=== PATIENT | male | born 1970 | race African-American/Black ===

== ENCOUNTER 2019-08-21 12:53 | Inpatient (IN) | payer MEDICARE ==
[~2019-08-21] VITALS: Ht 165.1 cm; Wt 77.1 kg
[2019-08-21] MEDS: IV NORMAL SALINE 1000ML BAG 1,000 ML IV SCH ×3 (14:10→15:10)
[2019-08-21] MEDS ORDERED: VANCOMYCIN PER PHARMACY MC ONE (14:15)
[2019-08-21] MEDS ORDERED: MORPHINE SULFATE 4 MG/ML VIAL. IV/SQ PRN (14:15)
[2019-08-21] MEDS ORDERED: PIPERACILLIN/TAZOBACTAM 4.5 GM in IV NORMAL SALINE 100ML 100 ML IV ONE (14:30)
[2019-08-21] MEDS ORDERED: VANCOMYCIN 2 GM in IV NORMAL SALINE 500ML BAG 500 ML IV ONE (14:45)
[2019-08-21 15:07] LABS: BASO # 0.1 x10^3/uL (0.0-0.2); BASO % 1 % (0-3); EOS # 0.2 x10^3/uL (0.0-0.7); EOS % 2 % (0-3); HEMATOCRIT 45.5 % (39.0-53.0); HEMOGLOBIN 15.2 g/dL (13.0-17.5); LYMPH % 10 % (24-48); MEAN CORPUSCULAR HEMOGLOBIN 28 pg (25-35); MEAN CORPUSCULAR HGB CONC 34 g/dL (31-37); MEAN CORPUSCULAR VOLUME 85 fL (79-100); MONO # 0.8 x10^3/uL (0.0-1.1); MONO % 8 % (0-9); NEUT # 7.3 x10^3/uL (1.8-7.7); NEUT % 78 % (31-73); PLATELET COUNT 300 x10^3/uL (140-400); RED BLOOD COUNT 5.37 x10^6/uL (4.30-5.70); RED CELL DISTRIBUTION WIDTH 13.8 % (11.5-14.5); WHITE BLOOD COUNT 9.4 x10^3/uL (4.0-11.0)
--- NOTE | 2019-08-21 15:07 | RAD ---
STUDY: Ultrasound testicular/scrotum INDICATION: Scrotal abscess. Rule out orchitis. COMPARISON: None. TECHNIQUE: Real-time grayscale and color Doppler sonographic evaluation of the testicles/scrotum. FINDINGS: Symmetric testicular size and parenchymal echotexture. The right testicle measures 4.3 x 3.0 x 1.9 cm. The left testicle measures 4.7 x 3.1 x 1.8 cm. Doppler flow to both testicles is also symmetric without findings of torsion or orchitis. Vascularity to both epididymides is symmetric as well. On the right aspect of the perineum, heterogeneously hypoechoic collection with predominantly peripheral vascularity measuring 4.9 x 2.3 x 1.4 cm. At the base of the scrotum, additional heterogeneously hypoechoic focus with surrounding vascularity measuring 1.4 x 1.2 x 0.7 cm. Complex collection at the left margin of the gluteal fold with only mild peripheral vascularity as seen on image 47, with the area of involvement measuring 5.6 x 4.2 x 2.8 cm. Impression: 1. Several complex, heterogeneously hypoechoic collections with predominately peripheral vascularity seen at the perineum, base of the scrotum, as well as along the left aspect of the gluteal fold most compatible with phlegmonous change/early abscess formation. The degree of internal complexity of these collections may render them difficult to drainage. 2. No findings to suggest epididymoorchitis. Electronically signed by: BRAD WHEAT MD (08/21/2019 3:05 PM) [facility]
[2019-08-21 15:17] LABS: CALCIUM 9.4 mg/dL (8.5-10.1); GFR 95.7; POTASSIUM 4.1 mmol/L (3.5-5.1)
[2019-08-21 15:23] LABS: ALBUMIN 3.3 g/dL (3.4-5.0); ALBUMIN/GLOBULIN RATIO 0.7 (1.0-1.7); TOTAL BILIRUBIN 0.4 mg/dL (0.2-1.0); TOTAL PROTEIN 8.1 g/dL (6.4-8.2)
[2019-08-21] MEDS ORDERED: CONTRAST GIVEN. MC PRN (15:30)
[2019-08-21] MEDS ORDERED: IOHEXOL 300 MG/ML 100ML VIAL. IV ONE (15:30)
[2019-08-21] MEDS ORDERED: ONDANSETRON PF 4 MG/2 ML VIAL. IV PRN (16:15)
[2019-08-21] MEDS ORDERED: ACETAMINOPHEN 325 MG TABLET. PO PRN (16:15)
[2019-08-21] MEDS ORDERED: IV DEXTROSE 5% 250 ML BAG. IV PRN (16:30)
[2019-08-21] MEDS ORDERED: DEXTROSE 50% 25 GM / 50ML DISP.SYRIN. IV PRN (16:30)
[2019-08-21 16:32] VITALS: BP 151/109
--- NOTE | 2019-08-21 16:37 | RAD ---
STUDY: CT pelvis with contrast INDICATION: Buttocks abscess. Right groin abscess. Right scrotal abscess. COMPARISON: Same day testicular/scrotal sonogram. TECHNIQUE: Helical CT imaging of the pelvis performed after the intravenous administration of 75 cc Omnipaque 300. Sagittal and coronal reformats were obtained. FINDINGS: Multifocal skin thickening along the inner thighs, along the perineum as well as along the gluteal cleft. Surrounding subcutaneous fat stranding in these regions. Fluid collection with intermediate central density and peripheral enhancement along the left aspect of the gluteal fold, image 64 series 2, measures approximately 4.4 cm AP by 2.8 cm transverse by 5.0 cm craniocaudal. This structure extends towards the anorectal region without a well defined sinus tract connecting the two structures seen on this exam. Poorly defined heterogeneous area of low attenuation at the right groin region, image 85 series 2, which likely corresponds to the ultrasound findings in this region though is difficult to measure on this exam. The heterogeneous fluid collection at the base of the scrotum seen by ultrasound is not well delineated on this study. Some fluid with intermixed air seen interposed between the scrotum and inner thigh on the left more so than right such as on images 83 and 88, series 2. No subcutaneous gas or intramuscular fluid collection. Scattered reactive inguinal lymph nodes. No intrapelvic fluid collection. The urinary bladder and prostate are within normal limits. Aortobiiliac atherosclerotic calcifications. Small fat-containing right paramidline hernia, image 7 series 2. Reticulation of the subcutaneous fat essentially involving the entirety of the imaged body. IMPRESSION: 1. Prominent heterogeneous collection with intermediate density internal contents and peripheral enhancement along the left aspect of the gluteal cleft measuring approximately 4.4 x 2.8 x 5.0 cm. This collection and surrounding soft tissue inflammatory changes extend to the posterior wall of the anorectal region without clear communication on this study. The appearance is compatible with a developing abscess though its drainability at this time is uncertain when correlating the internal density on this study with the internal complexity on the same day ultrasound. 2. At the right aspect of the groin, heterogeneous low-attenuation subjacent to the skin surface suggestive of phlegmonous change (image 85 series 2). No discrete drainable fluid collection along the perineum is present at this time. 3. The suspected scrotal abscess seen by ultrasound is not well characterized on this exam. 4. Background multifocal skin thickening with surrounding inflammatory fat stranding along the perineum, groin and gluteal cleft. Electronically signed by: BRAD WHEAT MD (08/21/2019 4:34 PM) [place] [id number]
[2019-08-21] MEDS: MORPHINE SULFATE 4 MG/ML VIAL. IV PRN (17:34)
[2019-08-21] MEDS: INSULIN LISPRO 300 UNITS/3 ML VIAL. SQ SCH (17:35)
[2019-08-21] MEDS ORDERED: amLODIPine BESYLATE 5 MG TABLET PO SCH (17:45)
--- NOTE | 2019-08-21 17:56 | PHYS DOC ---
Past Medical History Past Medical History: No Pertinent History Past Surgical History: Tonsillectomy Alcohol Use: None Drug Use: None Adult General Chief Complaint Chief Complaint: ABSCESS HPI HPI Patient is a 49 year old male with no significant medical history who presents to the ED today complaining of multiple abscesses around his groin and scrotum region that began one and a half weeks ago. Review of Systems Review of Systems Constitutional: Denies fever or chills [] Eyes: Denies change in visual acuity, redness, or eye pain [] HENT: Denies nasal congestion or sore throat [] Respiratory: Denies cough or shortness of breath [] Cardiovascular: No additional information not addressed in HPI [] GI: Denies abdominal pain, nausea, vomiting, bloody stools or diarrhea [] : Denies dysuria or hematuria [] Musculoskeletal: Denies back pain or joint pain [] Integument: Reports abscesses in the groin and scrotum region Neurologic: Denies headache, focal weakness or sensory changes [] All other systems were reviewed and found to be within normal limits, except as documented in this note. Current Medications Current Medications Current Medications Medications (Trade) Dose Ordered Sig/Mariola Start Time Stop Time Status Last Admin Dose Admin Morphine Sulfate (Morphine Sulfate) 4 mg PRN Q15MIN PRN 08/21/19 14:15 08/22/19 14:14 Piperacillin Sod/ Tazobactam Sod 4.5 gm/Sodium Chloride 100 ml @ 200 mls/hr 1X ONCE 08/21/19 14:30 08/21/19 14:59 DC 08/21/19 14:50 200 MLS/HR Sodium Chloride 1,000 ml @ 2,000 mls/hr Q30M 08/21/19 14:10 08/21/19 15:18 DC Vancomycin HCl (Vanco Per Pharmacy) 1 each 1X ONCE 08/21/19 14:15 08/21/19 15:30 DC 08/21/19 16:19 1 EACH Vancomycin HCl 2 gm/Sodium Chloride 500 ml @ 250 mls/hr 1X ONCE 08/21/19 14:45 08/21/19 16:44 DC 08/21/19 15:29 250 MLS/HR Allergies Allergies Allergies Coded Allergies Type Severity Reaction Last Updated Verified No Known Drug Allergies 08/21/19 No Physical Exam Physical Exam Constitutional: Well developed, well nourished, no acute distress, non-toxic appearance. [] HENT: Normocephalic, atraumatic, bilateral external ears normal, oropharynx mois t, no oral exudates, nose normal. [] Eyes: PERRLA, EOMI, conjunctiva normal, no discharge. [] Neck: Normal range of motion, no tenderness, supple, no stridor. [] Cardiovascular:Heart rate regular rhythm, no murmur [] Lungs & Thorax: Bilateral breath sounds clear to auscultation [] Abdomen: Bowel sounds normal, soft, no tenderness, no masses, no pulsatile masses. [] Skin: Groin and scrotal exam done with RN notes a last inserter. There is a mildly indurated area noted on the left inner buttock, the area is firm tender to touch, fluctuance noted, there is also another indurated area on the right inner groin/thigh region, the area appears to be draining, left scrotal region also has an open tiny wound. Extremities: No tenderness, no cyanosis, no clubbing, ROM intact, no edema. [] Neurologic: Alert and oriented X 3, normal motor function, normal sensory function, no focal deficits noted. [] Psychologic: Affect normal, judgement normal, mood normal. [] Current Patient Data Vital Signs Vital Signs Date Time Temp Pulse Resp B/P (MAP) Pulse Ox O2 Delivery O2 Flow Rate FiO2 08/21/19 14:38 96 16 141/92 (108) 97 Room Air 08/21/19 13:39 98.7 98.7 Lab Values Laboratory Tests Test 08/21/19 14:45 White Blood Count 9.4 x10^3/uL (4.0-11.0) Red Blood Count 5.37 x10^6/uL (4.30-5.70) Hemoglobin 15.2 g/dL (13.0-17.5) Hematocrit 45.5 % (39.0-53.0) Mean Corpuscular Volume 85 fL (79-100) Mean Corpuscular Hemoglobin 28 pg (25-35) Mean Corpuscular Hemoglobin Concent 34 g/dL (31-37) Red Cell Distribution Width 13.8 % (11.5-14.5) Platelet Count 300 x10^3/uL (140-400) Neutrophils (%) (Auto) 78 % (31-73) H Lymphocytes (%) (Auto) 10 % (24-48) L Monocytes (%) (Auto) 8 % (0-9) Eosinophils (%) (Auto) 2 % (0-3) Basophils (%) (Auto) 1 % (0-3) Neutrophils # (Auto) 7.3 x10^3/uL (1.8-7.7) Lymphocytes # (Auto) 1.0 x10^3/uL (1.0-4.8) Monocytes # (Auto) 0.8 x10^3/uL (0.0-1.1) Eosinophils # (Auto) 0.2 x10^3/uL (0.0-0.7) Basophils # (Auto) 0.1 x10^3/uL (0.0-0.2) Erythrocyte Sedimentation Rate 30 (0-15) H Sodium Level 134 mmol/L (136-145) L Potassium Level 4.1 mmol/L (3.5-5.1) Chloride Level 99 mmol/L (98-107) Carbon Dioxide Level 24 mmol/L (21-32) Anion Gap 11 (6-14) Blood Urea Nitrogen 14 mg/dL (8-26) Creatinine 1.0 mg/dL (0.7-1.3) Estimated GFR (Cockcroft-Gault) 95.7 BUN/Creatinine Ratio 14 (6-20) Glucose Level 339 mg/dL (70-99) H Lactic Acid Level 1.5 mmol/L (0.4-2.0) Calcium Level 9.4 mg/dL (8.5-10.1) Total Bilirubin 0.4 mg/dL (0.2-1.0) Aspartate Amino Transferase (AST) 11 U/L (15-37) L Alanine Aminotransferase (ALT) 12 U/L (16-63) L Alkaline Phosphatase 128 U/L (46-116) H C-Reactive Protein, Quantitative 69.0 mg/L (0-3.3) H Total Protein 8.1 g/dL (6.4-8.2) Albumin 3.3 g/dL (3.4-5.0) L Albumin/Globulin Ratio 0.7 (1.0-1.7) L Procalcitonin 0.10 ng/mL (0.00-0.10) Laboratory Tests 08/21/19 14:45 Laboratory Tests 08/21/19 14:45 EKG EKG [] Radiology/Procedures Radiology/Procedures [] Course & Med Decision Making Course & Med Decision Making Pertinent Labs and Imaging studies reviewed. (See chart for details) This is a 49-year-old male patient who presents to the ED today with multiple abscesses noted on the left buttock, right inner thigh/groin region, left scrotal region. Patient will be admitted for I&D by general surgery and IV antibiotics. Spoke with Dr. Staples who accepted patient for admission. Labs are pending. Dragon Disclaimer Dragon Disclaimer This electronic medical record was generated, in whole or in part, using a voice recognition dictation system. Departure Departure Impression: Primary Impression: Abscess of groin, right Additional Impression: Abscess of groin, left Disposition: ADMITTED INPATIENT Condition: STABLE Referrals: NO PCP (PCP) Problem Qualifiers MAKENZIE BAIRD APRN Aug 21, 2019 17:56
--- NOTE | 2019-08-21 18:12 | PDOC1 ---
History and Physical Date of Admission Date of Admission DATE: 08/21/19 TIME: 18:08 History of Present Illness History of Present Illness Mr. Ashraf is a 49 year old male, has not seen a doctor in 20 + years has pain to his buttock and groin for days, had a boil, and applied an onion, and that lesion is now drainging. no PMH that he is aware of. 9 days of worsenign pain, with multiple abscesses around his groin and scrotum region that began one and a half weeks ago. pain 07/11- Family History Family History: No Significant Social History Smoke: No ALCOHOL: rare Drugs: None Current Problem List Problem List Problems Medical Problems: (1) Abscess of groin, left Status: Acute (2) Abscess of groin, right Status: Acute Current Medications Current Medications Current Medications Piperacillin Sod/ Tazobactam Sod 4.5 gm/Sodium Chloride 100 ml @ 200 mls/hr 1X ONCE IV Last administered on 08/21/19at 14:50; Start 08/21/19 at 14:30; Stop 08/21/19 at 14:59; Status DC Vancomycin HCl (Vanco Per Pharmacy) 1 each 1X ONCE MC Last administered on 08/21/19at 16:19; Start 08/21/19 at 14:15; Stop 08/21/19 at 15:30; Status DC Sodium Chloride 1,000 ml @ 2,000 mls/hr Q30M IV ; Start 08/21/19 at 14:10; Stop 08/21/19 at 15:18; Status DC Morphine Sulfate (Morphine Sulfate) 4 mg PRN Q15MIN PRN IV/SQ PAIN GREATER THAN 3/10; Start 08/21/19 at 14:15; Stop 08/22/19 at 14:14 Vancomycin HCl 2 gm/Sodium Chloride 500 ml @ 250 mls/hr 1X ONCE IV Last administered on 08/21/19at 15:29; Start 08/21/19 at 14:45; Stop 08/21/19 at 16: 44; Status DC Iohexol (Omnipaque 300 Mg/ml) 75 ml 1X ONCE IV Last administered on 08/21/19at 15:52; Start 08/21/19 at 15:30; Stop 08/21/19 at 15:31; Status DC Info (CONTRAST GIVEN -- Rx MONITORING) 1 each PRN DAILY PRN MC SEE COMMENTS; Start 08/21/19 at 15:30; Stop 08/23/19 at 15:29 Vancomycin HCl 1.25 gm/Sodium Chloride 250 ml @ 167 mls/hr Q12H IV ; Start 08/22/19 at 03:30 Vancomycin HCl (Vancomycin Trough Level) 1 each 1X ONCE MC ; Start 08/23/19 at 03:00; Stop 08/23/19 at 03:01 Ondansetron HCl (Zofran) 4 mg PRN Q8HRS PRN IV NAUSEA/VOMITING; Start 08/21/19 at 16:15; Stop 08/22/19 at 16:14 Morphine Sulfate (Morphine Sulfate) 4 mg PRN Q2HR PRN IV PAIN Last administered on 08/21/19at 17:35; Start 08/21/19 at 16:15; Stop 08/22/19 at 16:14 Acetaminophen (Tylenol) 650 mg PRN Q4HRS PRN PO FEVER; Start 08/21/19 at 16:15; Stop 08/22/19 at 16:14 Insulin Human Lispro (HumaLOG) 0-9 UNITS TIDWMEALS SQ Last administered on 08/21/19at 17:35; Start 08/21/19 at 17:00 Dextrose (Dextrose 50%-Water Syringe) 12.5 gm PRN Q15MIN PRN IV SEE COMMENTS; Start 08/21/19 at 16:30 Dextrose 250 ml PRN Q15MIN PRN IV SEE COMMENTS; Start 08/21/19 at 16:30 Oxycodone/ Acetaminophen (Percocet 5/325) 1 tab PRN Q4HRS PRN PO PAIN; Start 08/21/19 at 17:45 Amlodipine Besylate (Norvasc) 2.5 mg DAILY PO Last administered on 08/21/19at 17:43; Start 08/21/19 at 17:45 Active Scripts Active Reported No Known Medications Prior To Admisstion (Info) Each 1 Each MC 1X Allergies Allergies: Coded Allergies: No Known Drug Allergies (Unverified , 08/21/19) ROS General: YES: Chills, Fatigue, Malaise PSYCHOLOGICAL ROS: YES: Sleep disturbances; No: Anxiety, Behavioral Disorder, Concentration difficultie, Decreased libido, Depression, Disorientation, Hallucinations, Hostility, Irritablity, Memory difficulties, Mood Swings, Obsessive thoughts, Other Eyes: No Blurry vision, No Decreased vision, No Double vision, No Dry eyes, No Excessive tearing, No Eye Pain, No Itchy Eyes, No Loss of vision, No Photophobia, No Scotomata, No Uses contacts, No Uses glasses, No Other HEENT: No: Heacaches, Visual Changes, Hearing change, Nasal congestion, Nasal discharge, Oral lesions, Sinus pain, Sore Throat, Epistaxis, Sneezing, Snoring, Tinnitus, Vertigo, Vocal changes, Other Respiratory: No: Cough, Hemoptysis, Orthopnea, Pleuritic Pain, Shortness of breath, SOB with excertion, Sputum Changes, Stridor, Tachypnea, Wheezing, Other Cardiovascular: No Chest Pain, No Palpitations, No Orthopnea, No Paroxysmal Noc. Dyspnea, No Edema, No Lt Headedness, No Other Gastrointestinal: Yes Nausea; No Vomiting, No Abdominal Pain, No Diarrhea, No Constipation, No Melena, No Hematochezia, No Other Genitourinary: No Dysuria, No Frequency, No Incontinence, No Hematuria, No Retention, No Discharge, No Urgency, No Pain, No Flank Pain, No Other, No , No , No , No , No , No , No Musculoskeletal: No Gait Disturbance, No Joint Pain, No Joint Stiffness, No Joint Swelling, No Muscle Pain, No Muscular Weakness, No Pain In:, No Swelling In:, No Other Neurological: No Behavorial Changes, No Bowel/Bladder ControlChng, No Confusion, No Dizziness, No Gait Disturbance, No Headaches, No Impaired Coord/balance, No Memory Loss, No Numbness/Tingling, No Seizures, No Speech Problems, No Tremors, No Visual Changes, No Weakness, No Other Skin: Yes Rash, Yes Skin Lesion Changes, Yes Other Physical Exam General: Oriented X3, Cooperative, mild distress, moderate distress HEENT: Atraumatic, PERRLA, Mucous membr. moist/pink Lungs: Clear to auscultation, Normal air movement Heart: S1S2 Extremities: No clubbing Skin: Other (groin wet from draining abcess, right large grion swelling and on left buttock) Neuro: Normal gait, Normal speech, Sensation intact Psych/Mental Status: Mood NL Vitals Vitals Vital Signs Date Time Temp Pulse Resp B/P (MAP) Pulse Ox O2 Delivery O2 Flow Rate FiO2 9/20/19 17:43 90 151/109 08/21/19 17:35 Room Air 08/21/19 16:32 98.5 16 97 98.5 Labs Labs Laboratory Tests Test 08/21/19 14:45 08/21/19 16:49 White Blood Count 9.4 x10^3/uL (4.0-11.0) Red Blood Count 5.37 x10^6/uL (4.30-5.70) Hemoglobin 15.2 g/dL (13.0-17.5) Hematocrit 45.5 % (39.0-53.0) Mean Corpuscular Volume 85 fL (79-100) Mean Corpuscular Hemoglobin 28 pg (25-35) Mean Corpuscular Hemoglobin Concent 34 g/dL (31-37) Red Cell Distribution Width 13.8 % (11.5-14.5) Platelet Count 300 x10^3/uL (140-400) Neutrophils (%) (Auto) 78 % (31-73) Lymphocytes (%) (Auto) 10 % (24-48) Monocytes (%) (Auto) 8 % (0-9) Eosinophils (%) (Auto) 2 % (0-3) Basophils (%) (Auto) 1 % (0-3) Neutrophils # (Auto) 7.3 x10^3/uL (1.8-7.7) Lymphocytes # (Auto) 1.0 x10^3/uL (1.0-4.8) Monocytes # (Auto) 0.8 x10^3/uL (0.0-1.1) Eosinophils # (Auto) 0.2 x10^3/uL (0.0-0.7) Basophils # (Auto) 0.1 x10^3/uL (0.0-0.2) Erythrocyte Sedimentation Rate 30 (0-15) Sodium Level 134 mmol/L (136-145) Potassium Level 4.1 mmol/L (3.5-5.1) Chloride Level 99 mmol/L (98-107) Carbon Dioxide Level 24 mmol/L (21-32) Anion Gap 11 (6-14) Blood Urea Nitrogen 14 mg/dL (8-26) Creatinine 1.0 mg/dL (0.7-1.3) Estimated GFR (Cockcroft-Gault) 95.7 BUN/Creatinine Ratio 14 (6-20) Glucose Level 339 mg/dL (70-99) Lactic Acid Level 1.5 mmol/L (0.4-2.0) Calcium Level 9.4 mg/dL (8.5-10.1) Total Bilirubin 0.4 mg/dL (0.2-1.0) Aspartate Amino Transf (AST/SGOT) 11 U/L (15-37) Alanine Aminotransferase (ALT/SGPT) 12 U/L (16-63) Alkaline Phosphatase 128 U/L (46-116) C-Reactive Protein, Quantitative 69.0 mg/L (0-3.3) Total Protein 8.1 g/dL (6.4-8.2) Albumin 3.3 g/dL (3.4-5.0) Albumin/Globulin Ratio 0.7 (1.0-1.7) Procalcitonin 0.10 ng/mL (0.00-0.10) Glucose (Fingerstick) 254 mg/dL (70-99) Laboratory Tests Test 08/21/19 14:45 08/21/19 16:49 White Blood Count 9.4 x10^3/uL (4.0-11.0) Red Blood Count 5.37 x10^6/uL (4.30-5.70) Hemoglobin 15.2 g/dL (13.0-17.5) Hematocrit 45.5 % (39.0-53.0) Mean Corpuscular Volume 85 fL (79-100) Mean Corpuscular Hemoglobin 28 pg (25-35) Mean Corpuscular Hemoglobin Concent 34 g/dL (31-37) Red Cell Distribution Width 13.8 % (11.5-14.5) Platelet Count 300 x10^3/uL (140-400) Neutrophils (%) (Auto) 78 % (31-73) Lymphocytes (%) (Auto) 10 % (24-48) Monocytes (%) (Auto) 8 % (0-9) Eosinophils (%) (Auto) 2 % (0-3) Basophils (%) (Auto) 1 % (0-3) Neutrophils # (Auto) 7.3 x10^3/uL (1.8-7.7) Lymphocytes # (Auto) 1.0 x10^3/uL (1.0-4.8) Monocytes # (Auto) 0.8 x10^3/uL (0.0-1.1) Eosinophils # (Auto) 0.2 x10^3/uL (0.0-0.7) Basophils # (Auto) 0.1 x10^3/uL (0.0-0.2) Erythrocyte Sedimentation Rate 30 (0-15) Sodium Level 134 mmol/L (136-145) Potassium Level 4.1 mmol/L (3.5-5.1) Chloride Level 99 mmol/L (98-107) Carbon Dioxide Level 24 mmol/L (21-32) Anion Gap 11 (6-14) Blood Urea Nitrogen 14 mg/dL (8-26) Creatinine 1.0 mg/dL (0.7-1.3) Estimated GFR (Cockcroft-Gault) 95.7 BUN/Creatinine Ratio 14 (6-20) Glucose Level 339 mg/dL (70-99) Lactic Acid Level 1.5 mmol/L (0.4-2.0) Calcium Level 9.4 mg/dL (8.5-10.1) Total Bilirubin 0.4 mg/dL (0.2-1.0) Aspartate Amino Transf (AST/SGOT) 11 U/L (15-37) Alanine Aminotransferase (ALT/SGPT) 12 U/L (16-63) Alkaline Phosphatase 128 U/L (46-116) C-Reactive Protein, Quantitative 69.0 mg/L (0-3.3) Total Protein 8.1 g/dL (6.4-8.2) Albumin 3.3 g/dL (3.4-5.0) Albumin/Globulin Ratio 0.7 (1.0-1.7) Procalcitonin 0.10 ng/mL (0.00-0.10) Glucose (Fingerstick) 254 mg/dL (70-99) VTE Prophylaxis Ordered VTE Prophylaxis Devices: No VTE Pharmacological Prophylaxi: No Assessment/Plan Assessment/Plan cellulits sepsis groin abcess, consult gen surg. imaging showed 3 abcesses, buttock, groin htn, reactive dm2 BRISA WELCH MD Aug 21, 2019 18:12
[2019-08-21 19:00] VITALS: BP 121/109
[2019-08-21] MEDS: oxyCODONE/APAP 5/325 1 TAB TABLET PO PRN (20:58)
[2019-08-21] MEDS ORDERED: INSULIN LISPRO 300 UNITS/3 ML VIAL. SQ ONE (21:00)
[2019-08-21] MEDS ORDERED: INSULIN GLARGINE SYRINGE. SQ ONE (21:00)
[2019-08-21 23:00] VITALS: BP 128/83
[2019-08-22] VITALS (8 sets, daily range): BP systolic 112–132; BP diastolic 72–99
[2019-08-22] MEDS: MORPHINE SULFATE 4 MG/ML VIAL. IV PRN ×3 (00:57→11:39)
[2019-08-22] MEDS: VANCOMYCIN 1.25 GM in IV NORMAL SALINE 250ML 250 ML IV SCH ×2 (03:57→17:42)
[2019-08-22 07:48] LABS: BASO # 0.1 x10^3/uL (0.0-0.2); BASO % 1 % (0-3); EOS # 0.3 x10^3/uL (0.0-0.7); EOS % 3 % (0-3); HEMATOCRIT 43.9 % (39.0-53.0); HEMOGLOBIN 14.3 g/dL (13.0-17.5); LYMPH # 1.3 x10^3/uL (1.0-4.8); LYMPH % 12 % (24-48); MEAN CORPUSCULAR HEMOGLOBIN 28 pg (25-35); MEAN CORPUSCULAR HGB CONC 33 g/dL (31-37); MEAN CORPUSCULAR VOLUME 86 fL (79-100); MONO # 1.1 x10^3/uL (0.0-1.1); MONO % 10 % (0-9); NEUT # 8.2 x10^3/uL (1.8-7.7); NEUT % 75 % (31-73); PLATELET COUNT 278 x10^3/uL (140-400); RED BLOOD COUNT 5.11 x10^6/uL (4.30-5.70); RED CELL DISTRIBUTION WIDTH 13.5 % (11.5-14.5)
[2019-08-22 08:09] LABS: ALBUMIN 2.7 g/dL (3.4-5.0); ALBUMIN/GLOBULIN RATIO 0.6 (1.0-1.7); CALCIUM 9.2 mg/dL (8.5-10.1); CREATININE 0.8 mg/dL (0.7-1.3); GFR 123.8; TOTAL BILIRUBIN 0.3 mg/dL (0.2-1.0); TOTAL PROTEIN 7.3 g/dL (6.4-8.2)
[2019-08-22] MEDS: oxyCODONE/APAP 5/325 1 TAB TABLET PO PRN ×2 (08:20→21:37)
[2019-08-22] MEDS: INSULIN LISPRO 300 UNITS/3 ML VIAL. SQ SCH ×3 (08:23→18:51)
[2019-08-22] MEDS ORDERED: PROCHLORPERAZINE 10 MG/2 ML VIAL. IV PRN (10:00)
[2019-08-22] MEDS ORDERED: MORPHINE SULFATE 2 MG/ML VIAL. IV PRN (10:00)
[2019-08-22] MEDS ORDERED: IV RINGERS,LACTATED 1000ML 1,000 ML IV SCH (10:00)
[2019-08-22] MEDS ORDERED: fentaNYL PF VIAL 100 MCG/2 ML VIAL IV PRN (10:00)
[2019-08-22] MEDS ORDERED: ONDANSETRON PF 4 MG/2 ML VIAL. IV PRN (10:00)
--- NOTE | 2019-08-22 10:30 | PDOC ---
PROGRESS NOTES History of Present Illness History of Present Illness VTE Prophylaxis Ordered VTE Prophylaxis Devices: No VTE Pharmacological Prophylaxi: No Assessment/Plan Assessment/Plan cellulits sepsis groin abcess, Several complex, heterogeneously hypoechoic collections with predominately peripheral vascularity seen at the perineum, base of the scrotum, as well as along the left aspect of the gluteal fold most compatible with phlegmonous change/early abscess formation. The degree of internal complexity of these collections may render them difficult to drainage. Prominent heterogeneous collection with intermediate density internal contents and peripheral enhancement along the left aspect of the gluteal cleft measuring approximately 4.4 x 2.8 x 5.0 cm. This collection and surrounding soft tissue inflammatory changes extend to the posterior wall of the anorectal region without clear communication on this study ON CT 08/21 No findings to suggest epididymoorchitis. SEVERE PROTEIN-CALORIC MALNUTRITION consult gen surg. imaging showed 3 abcesses, buttock, groin htn, reactive dm2 BLOOD CULT ID CONSULT IV VANC, ZOSYN DVT PROPHYLAXIS A1C 37 MIN PT EXAM, CHART REVIEW, > 50% OF TIME SPENT WITH EXAM, CHART REVIEW, PT CARE COORDINATION Vitals Vitals Vital Signs Date Time Temp Pulse Resp B/P (MAP) Pulse Ox O2 Delivery O2 Flow Rate FiO2 08/22/19 08:23 16 Room Air 08/22/19 07:00 97.9 83 117/73 (88) 94 97.9 Physical Exam General: Alert, Oriented X3, Cooperative, mild distress Heart: Regular rate Lungs: Clear Abdomen: Soft Extremities: No clubbing, No cyanosis Skin: Other (groin wet from draining abcess, right large grion swelling and on left buttock) Labs LABS STUDY: CT pelvis with contrast INDICATION: Buttocks abscess. Right groin abscess. Right scrotal abscess. COMPARISON: Same day testicular/scrotal sonogram. TECHNIQUE: Helical CT imaging of the pelvis performed after the intravenous administration of 75 cc Omnipaque 300. Sagittal and coronal reformats were obtained. FINDINGS: Multifocal skin thickening along the inner thighs, along the perineum as well as along the gluteal cleft. Surrounding subcutaneous fat stranding in these regions. Fluid collection with intermediate central density and peripheral enhancement along the left aspect of the gluteal fold, image 64 series 2, measures approximately 4.4 cm AP by 2.8 cm transverse by 5.0 cm craniocaudal. This structure extends towards the anorectal region without a well defined sinus tract connecting the two structures seen on this exam. Poorly defined heterogeneous area of low attenuation at the right groin region, image 85 series 2, which likely corresponds to the ultrasound findings in this region though is difficult to measure on this exam. The heterogeneous fluid collection at the base of the scrotum seen by ultrasound is not well delineated on this study. Some fluid with intermixed air seen interposed between the scrotum and inner thigh on the left more so than right such as on images 83 and 88, series 2. No subcutaneous gas or intramuscular fluid collection. Scattered reactive inguinal lymph nodes. No intrapelvic fluid collection. The urinary bladder and prostate are within normal limits. Aortobiiliac atherosclerotic calcifications. Small fat-containing right paramidline hernia, image 7 series 2. Reticulation of the subcutaneous fat essentially involving the entirety of the imaged body. IMPRESSION: 1. Prominent heterogeneous collection with intermediate density internal contents and peripheral enhancement along the left aspect of the gluteal cleft measuring approximately 4.4 x 2.8 x 5.0 cm. This collection and surrounding soft tissue inflammatory changes extend to the posterior wall of the anorectal region without clear communication on this study. The appearance is compatible with a developing abscess though its drainability at this time is uncertain when correlating the internal density on this study with the internal complexity on the same day ultrasound. 2. At the right aspect of the groin, heterogeneous low-attenuation subjacent to the skin surface suggestive of phlegmonous change (image 85 series 2). No discrete drainable fluid collection along the perineum is present at this time. 3. The suspected scrotal abscess seen by ultrasound is not well characterized on this exam. 4. Background multifocal skin thickening with surrounding inflammatory fat stranding along the perineum, groin and gluteal cleft. Electronically signed by: BRAD WHEAT MD (08/21/2019 4:34 PM) [facility] DICTATED and SIGNED BY: BRAD WHEAT MD DATE: 08/21/19 1634 STUDY: Ultrasound testicular/scrotum INDICATION: Scrotal abscess. Rule out orchitis. COMPARISON: None. TECHNIQUE: Real-time grayscale and color Doppler sonographic evaluation of the testicles/scrotum. FINDINGS: Symmetric testicular size and parenchymal echotexture. The right testicle measures 4.3 x 3.0 x 1.9 cm. The left testicle measures 4.7 x 3.1 x 1.8 cm. Doppler flow to both testicles is also symmetric without findings of torsion or orchitis. Vascularity to both epididymides is symmetric as well. On the right aspect of the perineum, heterogeneously hypoechoic collection with predominantly peripheral vascularity measuring 4.9 x 2.3 x 1.4 cm. At the base of the scrotum, additional heterogeneously hypoechoic focus with surrounding vascularity measuring 1.4 x 1.2 x 0.7 cm. Complex collection at the left margin of the gluteal fold with only mild peripheral vascularity as seen on image 47, with the area of involvement measuring 5.6 x 4.2 x 2.8 cm. Impression: 1. Several complex, heterogeneously hypoechoic collections with predominately peripheral vascularity seen at the perineum, base of the scrotum, as well as along the left aspect of the gluteal fold most compatible with phlegmonous change/early abscess formation. The degree of internal complexity of these collections may render them difficult to drainage. 2. No findings to suggest epididymoorchitis. Electronically signed by: BRAD WHEAT MD (08/21/2019 3:05 PM) [facility] Laboratory Tests Test 08/21/19 14:45 08/21/19 16:49 08/21/19 18:15 08/21/19 20:14 White Blood Count 9.4 x10^3/uL (4.0-11.0) Red Blood Count 5.37 x10^6/uL (4.30-5.70) Hemoglobin 15.2 g/dL (13.0-17.5) Hematocrit 45.5 % (39.0-53.0) Mean Corpuscular Volume 85 fL (79-100) Mean Corpuscular Hemoglobin 28 pg (25-35) Mean Corpuscular Hemoglobin Concent 34 g/dL (31-37) Red Cell Distribution Width 13.8 % (11.5-14.5) Platelet Count 300 x10^3/uL (140-400) Neutrophils (%) (Auto) 78 % (31-73) Lymphocytes (%) (Auto) 10 % (24-48) Monocytes (%) (Auto) 8 % (0-9) Eosinophils (%) (Auto) 2 % (0-3) Basophils (%) (Auto) 1 % (0-3) Neutrophils # (Auto) 7.3 x10^3/uL (1.8-7.7) Lymphocytes # (Auto) 1.0 x10^3/uL (1.0-4.8) Monocytes # (Auto) 0.8 x10^3/uL (0.0-1.1) Eosinophils # (Auto) 0.2 x10^3/uL (0.0-0.7) Basophils # (Auto) 0.1 x10^3/uL (0.0-0.2) Erythrocyte Sedimentation Rate 30 (0-15) Sodium Level 134 mmol/L (136-145) Potassium Level 4.1 mmol/L (3.5-5.1) Chloride Level 99 mmol/L (98-107) Carbon Dioxide Level 24 mmol/L (21-32) Anion Gap 11 (6-14) Blood Urea Nitrogen 14 mg/dL (8-26) Creatinine 1.0 mg/dL (0.7-1.3) Estimated GFR (Cockcroft-Gault) 95.7 BUN/Creatinine Ratio 14 (6-20) Glucose Level 339 mg/dL (70-99) Lactic Acid Level 1.5 mmol/L (0.4-2.0) 1.0 mmol/L (0.4-2.0) Calcium Level 9.4 mg/dL (8.5-10.1) Total Bilirubin 0.4 mg/dL (0.2-1.0) Aspartate Amino Transf (AST/SGOT) 11 U/L (15-37) Alanine Aminotransferase (ALT/SGPT) 12 U/L (16-63) Alkaline Phosphatase 128 U/L (46-116) C-Reactive Protein, Quantitative 69.0 mg/L (0-3.3) Total Protein 8.1 g/dL (6.4-8.2) Albumin 3.3 g/dL (3.4-5.0) Albumin/Globulin Ratio 0.7 (1.0-1.7) Procalcitonin 0.10 ng/mL (0.00-0.10) Glucose (Fingerstick) 254 mg/dL (70-99) 407 mg/dL (70-99) Test 08/22/19 07:05 White Blood Count 11.0 x10^3/uL (4.0-11.0) Red Blood Count 5.11 x10^6/uL (4.30-5.70) Hemoglobin 14.3 g/dL (13.0-17.5) Hematocrit 43.9 % (39.0-53.0) Mean Corpuscular Volume 86 fL (79-100) Mean Corpuscular Hemoglobin 28 pg (25-35) Mean Corpuscular Hemoglobin Concent 33 g/dL (31-37) Red Cell Distribution Width 13.5 % (11.5-14.5) Platelet Count 278 x10^3/uL (140-400) Neutrophils (%) (Auto) 75 % (31-73) Lymphocytes (%) (Auto) 12 % (24-48) Monocytes (%) (Auto) 10 % (0-9) Eosinophils (%) (Auto) 3 % (0-3) Basophils (%) (Auto) 1 % (0-3) Neutrophils # (Auto) 8.2 x10^3/uL (1.8-7.7) Lymphocytes # (Auto) 1.3 x10^3/uL (1.0-4.8) Monocytes # (Auto) 1.1 x10^3/uL (0.0-1.1) Eosinophils # (Auto) 0.3 x10^3/uL (0.0-0.7) Basophils # (Auto) 0.1 x10^3/uL (0.0-0.2) Sodium Level 137 mmol/L (136-145) Potassium Level 4.0 mmol/L (3.5-5.1) Chloride Level 103 mmol/L (98-107) Carbon Dioxide Level 25 mmol/L (21-32) Anion Gap 9 (6-14) Blood Urea Nitrogen 12 mg/dL (8-26) Creatinine 0.8 mg/dL (0.7-1.3) Estimated GFR (Cockcroft-Gault) 123.8 BUN/Creatinine Ratio 15 (6-20) Glucose Level 215 mg/dL (70-99) Calcium Level 9.2 mg/dL (8.5-10.1) Total Bilirubin 0.3 mg/dL (0.2-1.0) Aspartate Amino Transf (AST/SGOT) 12 U/L (15-37) Alanine Aminotransferase (ALT/SGPT) 12 U/L (16-63) Alkaline Phosphatase 107 U/L (46-116) Total Protein 7.3 g/dL (6.4-8.2) Albumin 2.7 g/dL (3.4-5.0) Albumin/Globulin Ratio 0.6 (1.0-1.7) Assessment and Plan Assessmemt and Plan Problems Medical Problems: (1) Abscess of groin, left Status: Acute (2) Abscess of groin, right Status: Acute Comment Review of Relevant I have reviewed the following items liliana (where applicable) has been applied. Labs Laboratory Tests Test 08/21/19 14:45 08/21/19 16:49 08/21/19 18:15 08/21/19 20:14 White Blood Count 9.4 x10^3/uL (4.0-11.0) Red Blood Count 5.37 x10^6/uL (4.30-5.70) Hemoglobin 15.2 g/dL (13.0-17.5) Hematocrit 45.5 % (39.0-53.0) Mean Corpuscular Volume 85 fL (79-100) Mean Corpuscular Hemoglobin 28 pg (25-35) Mean Corpuscular Hemoglobin Concent 34 g/dL (31-37) Red Cell Distribution Width 13.8 % (11.5-14.5) Platelet Count 300 x10^3/uL (140-400) Neutrophils (%) (Auto) 78 % (31-73) Lymphocytes (%) (Auto) 10 % (24-48) Monocytes (%) (Auto) 8 % (0-9) Eosinophils (%) (Auto) 2 % (0-3) Basophils (%) (Auto) 1 % (0-3) Neutrophils # (Auto) 7.3 x10^3/uL (1.8-7.7) Lymphocytes # (Auto) 1.0 x10^3/uL (1.0-4.8) Monocytes # (Auto) 0.8 x10^3/uL (0.0-1.1) Eosinophils # (Auto) 0.2 x10^3/uL (0.0-0.7) Basophils # (Auto) 0.1 x10^3/uL (0.0-0.2) Erythrocyte Sedimentation Rate 30 (0-15) Sodium Level 134 mmol/L (136-145) Potassium Level 4.1 mmol/L (3.5-5.1) Chloride Level 99 mmol/L (98-107) Carbon Dioxide Level 24 mmol/L (21-32) Anion Gap 11 (6-14) Blood Urea Nitrogen 14 mg/dL (8-26) Creatinine 1.0 mg/dL (0.7-1.3) Estimated GFR (Cockcroft-Gault) 95.7 BUN/Creatinine Ratio 14 (6-20) Glucose Level 339 mg/dL (70-99) Lactic Acid Level 1.5 mmol/L (0.4-2.0) 1.0 mmol/L (0.4-2.0) Calcium Level 9.4 mg/dL (8.5-10.1) Total Bilirubin 0.4 mg/dL (0.2-1.0) Aspartate Amino Transf (AST/SGOT) 11 U/L (15-37) Alanine Aminotransferase (ALT/SGPT) 12 U/L (16-63) Alkaline Phosphatase 128 U/L (46-116) C-Reactive Protein, Quantitative 69.0 mg/L (0-3.3) Total Protein 8.1 g/dL (6.4-8.2) Albumin 3.3 g/dL (3.4-5.0) Albumin/Globulin Ratio 0.7 (1.0-1.7) Procalcitonin 0.10 ng/mL (0.00-0.10) Glucose (Fingerstick) 254 mg/dL (70-99) 407 mg/dL (70-99) Test 08/22/19 07:05 White Blood Count 11.0 x10^3/uL (4.0-11.0) Red Blood Count 5.11 x10^6/uL (4.30-5.70) Hemoglobin 14.3 g/dL (13.0-17.5) Hematocrit 43.9 % (39.0-53.0) Mean Corpuscular Volume 86 fL (79-100) Mean Corpuscular Hemoglobin 28 pg (25-35) Mean Corpuscular Hemoglobin Concent 33 g/dL (31-37) Red Cell Distribution Width 13.5 % (11.5-14.5) Platelet Count 278 x10^3/uL (140-400) Neutrophils (%) (Auto) 75 % (31-73) Lymphocytes (%) (Auto) 12 % (24-48) Monocytes (%) (Auto) 10 % (0-9) Eosinophils (%) (Auto) 3 % (0-3) Basophils (%) (Auto) 1 % (0-3) Neutrophils # (Auto) 8.2 x10^3/uL (1.8-7.7) Lymphocytes # (Auto) 1.3 x10^3/uL (1.0-4.8) Monocytes # (Auto) 1.1 x10^3/uL (0.0-1.1) Eosinophils # (Auto) 0.3 x10^3/uL (0.0-0.7) Basophils # (Auto) 0.1 x10^3/uL (0.0-0.2) Sodium Level 137 mmol/L (136-145) Potassium Level 4.0 mmol/L (3.5-5.1) Chloride Level 103 mmol/L (98-107) Carbon Dioxide Level 25 mmol/L (21-32) Anion Gap 9 (6-14) Blood Urea Nitrogen 12 mg/dL (8-26) Creatinine 0.8 mg/dL (0.7-1.3) Estimated GFR (Cockcroft-Gault) 123.8 BUN/Creatinine Ratio 15 (6-20) Glucose Level 215 mg/dL (70-99) Calcium Level 9.2 mg/dL (8.5-10.1) Total Bilirubin 0.3 mg/dL (0.2-1.0) Aspartate Amino Transf (AST/SGOT) 12 U/L (15-37) Alanine Aminotransferase (ALT/SGPT) 12 U/L (16-63) Alkaline Phosphatase 107 U/L (46-116) Total Protein 7.3 g/dL (6.4-8.2) Albumin 2.7 g/dL (3.4-5.0) Albumin/Globulin Ratio 0.6 (1.0-1.7) Laboratory Tests Test 08/21/19 14:45 08/21/19 16:49 08/21/19 18:15 08/21/19 20:14 White Blood Count 9.4 x10^3/uL (4.0-11.0) Red Blood Count 5.37 x10^6/uL (4.30-5.70) Hemoglobin 15.2 g/dL (13.0-17.5) Hematocrit 45.5 % (39.0-53.0) Mean Corpuscular Volume 85 fL (79-100) Mean Corpuscular Hemoglobin 28 pg (25-35) Mean Corpuscular Hemoglobin Concent 34 g/dL (31-37) Red Cell Distribution Width 13.8 % (11.5-14.5) Platelet Count 300 x10^3/uL (140-400) Neutrophils (%) (Auto) 78 % (31-73) Lymphocytes (%) (Auto) 10 % (24-48) Monocytes (%) (Auto) 8 % (0-9) Eosinophils (%) (Auto) 2 % (0-3) Basophils (%) (Auto) 1 % (0-3) Neutrophils # (Auto) 7.3 x10^3/uL (1.8-7.7) Lymphocytes # (Auto) 1.0 x10^3/uL (1.0-4.8) Monocytes # (Auto) 0.8 x10^3/uL (0.0-1.1) Eosinophils # (Auto) 0.2 x10^3/uL (0.0-0.7) Basophils # (Auto) 0.1 x10^3/uL (0.0-0.2) Erythrocyte Sedimentation Rate 30 (0-15) Sodium Level 134 mmol/L (136-145) Potassium Level 4.1 mmol/L (3.5-5.1) Chloride Level 99 mmol/L (98-107) Carbon Dioxide Level 24 mmol/L (21-32) Anion Gap 11 (6-14) Blood Urea Nitrogen 14 mg/dL (8-26) Creatinine 1.0 mg/dL (0.7-1.3) Estimated GFR (Cockcroft-Gault) 95.7 BUN/Creatinine Ratio 14 (6-20) Glucose Level 339 mg/dL (70-99) Lactic Acid Level 1.5 mmol/L (0.4-2.0) 1.0 mmol/L (0.4-2.0) Calcium Level 9.4 mg/dL (8.5-10.1) Total Bilirubin 0.4 mg/dL (0.2-1.0) Aspartate Amino Transf (AST/SGOT) 11 U/L (15-37) Alanine Aminotransferase (ALT/SGPT) 12 U/L (16-63) Alkaline Phosphatase 128 U/L (46-116) C-Reactive Protein, Quantitative 69.0 mg/L (0-3.3) Total Protein 8.1 g/dL (6.4-8.2) Albumin 3.3 g/dL (3.4-5.0) Albumin/Globulin Ratio 0.7 (1.0-1.7) Procalcitonin 0.10 ng/mL (0.00-0.10) Glucose (Fingerstick) 254 mg/dL (70-99) 407 mg/dL (70-99) Test 08/22/19 07:05 White Blood Count 11.0 x10^3/uL (4.0-11.0) Red Blood Count 5.11 x10^6/uL (4.30-5.70) Hemoglobin 14.3 g/dL (13.0-17.5) Hematocrit 43.9 % (39.0-53.0) Mean Corpuscular Volume 86 fL (79-100) Mean Corpuscular Hemoglobin 28 pg (25-35) Mean Corpuscular Hemoglobin Concent 33 g/dL (31-37) Red Cell Distribution Width 13.5 % (11.5-14.5) Platelet Count 278 x10^3/uL (140-400) Neutrophils (%) (Auto) 75 % (31-73) Lymphocytes (%) (Auto) 12 % (24-48) Monocytes (%) (Auto) 10 % (0-9) Eosinophils (%) (Auto) 3 % (0-3) Basophils (%) (Auto) 1 % (0-3) Neutrophils # (Auto) 8.2 x10^3/uL (1.8-7.7) Lymphocytes # (Auto) 1.3 x10^3/uL (1.0-4.8) Monocytes # (Auto) 1.1 x10^3/uL (0.0-1.1) Eosinophils # (Auto) 0.3 x10^3/uL (0.0-0.7) Basophils # (Auto) 0.1 x10^3/uL (0.0-0.2) Sodium Level 137 mmol/L (136-145) Potassium Level 4.0 mmol/L (3.5-5.1) Chloride Level 103 mmol/L (98-107) Carbon Dioxide Level 25 mmol/L (21-32) Anion Gap 9 (6-14) Blood Urea Nitrogen 12 mg/dL (8-26) Creatinine 0.8 mg/dL (0.7-1.3) Estimated GFR (Cockcroft-Gault) 123.8 BUN/Creatinine Ratio 15 (6-20) Glucose Level 215 mg/dL (70-99) Calcium Level 9.2 mg/dL (8.5-10.1) Total Bilirubin 0.3 mg/dL (0.2-1.0) Aspartate Amino Transf (AST/SGOT) 12 U/L (15-37) Alanine Aminotransferase (ALT/SGPT) 12 U/L (16-63) Alkaline Phosphatase 107 U/L (46-116) Total Protein 7.3 g/dL (6.4-8.2) Albumin 2.7 g/dL (3.4-5.0) Albumin/Globulin Ratio 0.6 (1.0-1.7) Medications Current Medications Piperacillin Sod/ Tazobactam Sod 4.5 gm/Sodium Chloride 100 ml @ 200 mls/hr 1X ONCE IV Last administered on 08/21/19at 14:50; Start 08/21/19 at 14:30; Stop 08/21/19 at 14:59; Status DC Vancomycin HCl (Vanco Per Pharmacy) 1 each 1X ONCE MC Last administered on 08/21/19at 16:19; Start 08/21/19 at 14:15; Stop 08/21/19 at 15:30; Status DC Sodium Chloride 1,000 ml @ 2,000 mls/hr Q30M IV ; Start 08/21/19 at 14:10; Stop 08/21/19 at 15:18; Status DC Morphine Sulfate (Morphine Sulfate) 4 mg PRN Q15MIN PRN IV/SQ PAIN GREATER THAN 3/10; Start 08/21/19 at 14:15; Stop 08/22/19 at 14:14 Vancomycin HCl 2 gm/Sodium Chloride 500 ml @ 250 mls/hr 1X ONCE IV Last administered on 08/21/19at 15:29; Start 08/21/19 at 14:45; Stop 08/21/19 at 16:44; Status DC Iohexol (Omnipaque 300 Mg/ml) 75 ml 1X ONCE IV Last administered on 08/21/19at 15:52; Start 08/21/19 at 15:30; Stop 08/21/19 at 15:31; Status DC Info (CONTRAST GIVEN -- Rx MONITORING) 1 each PRN DAILY PRN MC SEE COMMENTS; Start 08/21/19 at 15:30; Stop 08/23/19 at 15:29 Vancomycin HCl 1.25 gm/Sodium Chloride 250 ml @ 167 mls/hr Q12H IV Last administered on 08/22/19at 03:59; Start 08/22/19 at 03:30 Vancomycin HCl (Vancomycin Trough Level) 1 each 1X ONCE MC ; Start 08/23/19 at 03:00; Stop 08/23/19 at 03:01 Ondansetron HCl (Zofran) 4 mg PRN Q8HRS PRN IV NAUSEA/VOMITING; Start 08/21/19 at 16:15; Stop 08/22/19 at 16:14 Morphine Sulfate (Morphine Sulfate) 4 mg PRN Q2HR PRN IV PAIN Last administered on 08/22/19at 06:25; Start 08/21/19 at 16:15; Stop 08/22/19 at 16:14 Acetaminophen (Tylenol) 650 mg PRN Q4HRS PRN PO FEVER; Start 08/21/19 at 16:15; Stop 08/22/19 at 16:14 Insulin Human Lispro (HumaLOG) 0-9 UNITS TIDWMEALS SQ Last administered on 08/22/19at 08:23; Start 08/21/19 at 17:00 Dextrose (Dextrose 50%-Water Syringe) 12.5 gm PRN Q15MIN PRN IV SEE COMMENTS; Start 08/21/19 at 16:30 Dextrose 250 ml PRN Q15MIN PRN IV SEE COMMENTS; Start 08/21/19 at 16:30 Oxycodone/ Acetaminophen (Percocet 5/325) 1 tab PRN Q4HRS PRN PO PAIN Last administered on 08/22/19at 08:23; Start 08/21/19 at 17:45 Amlodipine Besylate (Norvasc) 2.5 mg DAILY PO Last administered on 08/21/19at 17:43; Start 08/21/19 at 17:45; Stop 08/21/19 at 18:10; Status DC Insulin Human Lispro (HumaLOG) 8 units 1X ONCE SQ Last administered on 08/21/19at 21:01; Start 08/21/19 at 21:00; Stop 08/21/19 at 21:01; Status DC Insulin Glargine (Lantus Syringe) 10 unit 1X ONCE SQ Last administered on 08/21/19at 21:02; Start 08/21/19 at 21:00; Stop 08/21/19 at 21:01; Status DC Ondansetron HCl (Zofran) 4 mg PRN Q6HRS PRN IV NAUSEA/VOMITING; Start 08/22/19 at 10:00; Stop 08/22/19 at 20:00 Fentanyl Citrate (Fentanyl 2ml Vial) 25 mcg PRN Q5MIN PRN IV MILD PAIN 1-3; Start 08/22/19 at 10:00; Stop 08/22/19 at 20:00 Fentanyl Citrate (Fentanyl 2ml Vial) 50 mcg PRN Q5MIN PRN IV MODERATE TO SEVERE PAIN; Start 08/22/19 at 10:00; Stop 08/22/19 at 20:00 Morphine Sulfate (Morphine Sulfate) 1 mg PRN Q10MIN PRN IV SEVERE PAIN 7-10; Start 08/22/19 at 10:00; Stop 08/22/19 at 20:00 Ringer's Solution 1,000 ml @ 30 mls/hr Q24H IV ; Start 08/22/19 at 10:00; Stop 08/22/19 at 21:59 Hydromorphone HCl (Dilaudid) 0.5 mg PRN Q10MIN PRN IV SEV PAIN, Second choice; Start 08/22/19 at 10:00; Stop 08/22/19 at 20:00 Prochlorperazine Edisylate (Compazine) 5 mg PACU PRN PRN IV NAUSEA, MRX1; Start 08/22/19 at 10:00; Stop 08/22/19 at 20:00 Active Scripts Active Reported No Known Medications Prior To Admisstion (Info) Each 1 Each MC 1X Vitals/I & O Vital Sign - Last 24 Hours 08/21/19 08/21/19 08/21/19 08/21/19 13:39 14:38 16:09 16:32 Temp 98.7 98.5 98.7 98.5 Pulse 86 96 94 90 Resp 18 16 18 16 B/P (MAP) 155/106 (122) 141/92 (108) 140/101 (114) 151/109 (123) Pulse Ox 98 97 96 97 O2 Delivery Room Air Room Air Room Air Room Air 08/21/19 08/21/19 08/21/19 08/21/19 16:40 17:35 17:43 19:00 Temp 99.0 99.0 Pulse 90 105 Resp 18 B/P (MAP) 151/109 121/109 (113) Pulse Ox 95 O2 Delivery Room Air Room Air Room Air 08/21/19 08/21/19 08/21/19 08/21/19 19:45 21:01 23:00 23:02 Temp 99.0 99.0 Pulse 91 Resp 16 18 16 B/P (MAP) 128/83 (98) Pulse Ox 96 O2 Delivery Room Air Room Air Room Air Room Air 08/22/19 08/22/19 08/22/19 08/22/19 00:57 01:34 02:51 06:25 Temp 99.2 99.2 Pulse 91 Resp 16 16 18 16 B/P (MAP) 129/79 (96) Pulse Ox 92 92 O2 Delivery Room Air Room Air Room Air Room Air 08/22/19 08/22/19 08/22/19 07:00 07:18 08:23 Temp 97.9 97.9 Pulse 83 Resp 18 16 16 B/P (MAP) 117/73 (88) Pulse Ox 94 O2 Delivery Room Air Room Air Room Air Intake and Output 08/21/19 08/21/19 08/22/19 14:59 22:59 06:59 Intake Total 180 ml 1000 ml Balance 180 ml 1000 ml FRANSISCO CANTU MD Aug 22, 2019 10:30
[2019-08-22] MEDS: HEPARIN for SUB-Q USE 5,000 UNIT/ML VIAL. SQ SCH ×2 (11:00→21:44)
[2019-08-22] MEDS: VANCOMYCIN PER PHARMACY MC PRN (11:26)
[2019-08-22] MEDS: PIPERACILLIN/TAZOBACTAM 3.375 GM in IV NORMAL SALINE 50ML 50 ML IV SCH ×2 (12:03→18:49)
--- NOTE | 2019-08-22 12:13 | PDOC ---
Infectious Disease Note Vital Sign Vital Signs Vital Signs Date Time Temp Pulse Resp B/P (MAP) Pulse Ox O2 Delivery O2 Flow Rate FiO2 08/22/19 11:40 16 Room Air 08/22/19 07:00 97.9 83 117/73 (88) 94 97.9 Labs Lab Laboratory Tests Test 08/21/19 14:45 08/21/19 16:49 08/21/19 18:15 08/21/19 20:14 White Blood Count 9.4 x10^3/uL (4.0-11.0) Red Blood Count 5.37 x10^6/uL (4.30-5.70) Hemoglobin 15.2 g/dL (13.0-17.5) Hematocrit 45.5 % (39.0-53.0) Mean Corpuscular Volume 85 fL (79-100) Mean Corpuscular Hemoglobin 28 pg (25-35) Mean Corpuscular Hemoglobin Concent 34 g/dL (31-37) Red Cell Distribution Width 13.8 % (11.5-14.5) Platelet Count 300 x10^3/uL (140-400) Neutrophils (%) (Auto) 78 % (31-73) Lymphocytes (%) (Auto) 10 % (24-48) Monocytes (%) (Auto) 8 % (0-9) Eosinophils (%) (Auto) 2 % (0-3) Basophils (%) (Auto) 1 % (0-3) Neutrophils # (Auto) 7.3 x10^3/uL (1.8-7.7) Lymphocytes # (Auto) 1.0 x10^3/uL (1.0-4.8) Monocytes # (Auto) 0.8 x10^3/uL (0.0-1.1) Eosinophils # (Auto) 0.2 x10^3/uL (0.0-0.7) Basophils # (Auto) 0.1 x10^3/uL (0.0-0.2) Erythrocyte Sedimentation Rate 30 (0-15) Sodium Level 134 mmol/L (136-145) Potassium Level 4.1 mmol/L (3.5-5.1) Chloride Level 99 mmol/L (98-107) Carbon Dioxide Level 24 mmol/L (21-32) Anion Gap 11 (6-14) Blood Urea Nitrogen 14 mg/dL (8-26) Creatinine 1.0 mg/dL (0.7-1.3) Estimated GFR (Cockcroft-Gault) 95.7 BUN/Creatinine Ratio 14 (6-20) Glucose Level 339 mg/dL (70-99) Lactic Acid Level 1.5 mmol/L (0.4-2.0) 1.0 mmol/L (0.4-2.0) Calcium Level 9.4 mg/dL (8.5-10.1) Total Bilirubin 0.4 mg/dL (0.2-1.0) Aspartate Amino Transf (AST/SGOT) 11 U/L (15-37) Alanine Aminotransferase (ALT/SGPT) 12 U/L (16-63) Alkaline Phosphatase 128 U/L (46-116) C-Reactive Protein, Quantitative 69.0 mg/L (0-3.3) Total Protein 8.1 g/dL (6.4-8.2) Albumin 3.3 g/dL (3.4-5.0) Albumin/Globulin Ratio 0.7 (1.0-1.7) Procalcitonin 0.10 ng/mL (0.00-0.10) Glucose (Fingerstick) 254 mg/dL (70-99) 407 mg/dL (70-99) Test 08/22/19 07:05 08/22/19 07:19 08/22/19 11:40 White Blood Count 11.0 x10^3/uL (4.0-11.0) Red Blood Count 5.11 x10^6/uL (4.30-5.70) Hemoglobin 14.3 g/dL (13.0-17.5) Hematocrit 43.9 % (39.0-53.0) Mean Corpuscular Volume 86 fL (79-100) Mean Corpuscular Hemoglobin 28 pg (25-35) Mean Corpuscular Hemoglobin Concent 33 g/dL (31-37) Red Cell Distribution Width 13.5 % (11.5-14.5) Platelet Count 278 x10^3/uL (140-400) Neutrophils (%) (Auto) 75 % (31-73) Lymphocytes (%) (Auto) 12 % (24-48) Monocytes (%) (Auto) 10 % (0-9) Eosinophils (%) (Auto) 3 % (0-3) Basophils (%) (Auto) 1 % (0-3) Neutrophils # (Auto) 8.2 x10^3/uL (1.8-7.7) Lymphocytes # (Auto) 1.3 x10^3/uL (1.0-4.8) Monocytes # (Auto) 1.1 x10^3/uL (0.0-1.1) Eosinophils # (Auto) 0.3 x10^3/uL (0.0-0.7) Basophils # (Auto) 0.1 x10^3/uL (0.0-0.2) Sodium Level 137 mmol/L (136-145) Potassium Level 4.0 mmol/L (3.5-5.1) Chloride Level 103 mmol/L (98-107) Carbon Dioxide Level 25 mmol/L (21-32) Anion Gap 9 (6-14) Blood Urea Nitrogen 12 mg/dL (8-26) Creatinine 0.8 mg/dL (0.7-1.3) Estimated GFR (Cockcroft-Gault) 123.8 BUN/Creatinine Ratio 15 (6-20) Glucose Level 215 mg/dL (70-99) Calcium Level 9.2 mg/dL (8.5-10.1) Total Bilirubin 0.3 mg/dL (0.2-1.0) Aspartate Amino Transf (AST/SGOT) 12 U/L (15-37) Alanine Aminotransferase (ALT/SGPT) 12 U/L (16-63) Alkaline Phosphatase 107 U/L (46-116) Total Protein 7.3 g/dL (6.4-8.2) Albumin 2.7 g/dL (3.4-5.0) Albumin/Globulin Ratio 0.6 (1.0-1.7) Glucose (Fingerstick) 225 mg/dL (70-99) 125 mg/dL (70-99) Objective Assessment Multiple abscesses involving left buttocks, perineal/groin areas Diabetes Hypertension Tobaccoism Plan Plan of Care vanc and Zosyn Monitor renal function closely Gen surg consulted f/u cultures Glycemic control Smoking cessation D/w nursing Thank you [id number] Attending Co-Sign The patient was seen and interviewed as well as examined at the bedside. The chart was reviewed. The case was discussed. Agree with the plan of care. LASHELL DA SILVA APRN Aug 22, 2019 12:13 NATHALY REMY MD Aug 22, 2019 12:28
--- NOTE | 2019-08-22 12:42 | CONS ---
DATE OF CONSULTATION: 08/22/2019 REQUESTING PHYSICIAN: Dr. Florez. REASON FOR CONSULTATION: Abscess. HISTORY OF PRESENT ILLNESS: This patient is a 49-year-old -[place] male who developed some boils around his perirectal, right groin and scrotal area about 3 weeks ago that have become increasingly more painful, swollen and starting to drain. Imaging revealed findings compatible with developing abscesses. General Surgery has been consulted. He is currently on vancomycin and Zosyn. PAST MEDICAL HISTORY: Hypertension. PAST SURGICAL HISTORY: Tonsillectomy. SOCIAL HISTORY: Lives at home. Current everyday smoker. FAMILY HISTORY: Noncontributory. ALLERGIES: No known drug allergies. CURRENT MEDICATIONS: Vancomycin and Zosyn. Other medications are available and have been reviewed on the MAR. REVIEW OF SYSTEMS: The patient complains of ongoing pain. Denies fevers, chills, sweats or body aches. Denies nausea, vomiting or diarrhea. Denies shortness of air, cough or chest discomfort. Other review of systems negative. PHYSICAL EXAMINATION: VITAL SIGNS: Temperature 97.9, blood pressure 117/73, heart rate 83, respiratory rate 16, pulse oximetry 94% on room air. GENERAL: The patient is resting quietly, arouses to name. HEENT: Pupils equally round. Oropharynx clear. NECK: Supple. LUNGS: Clear to auscultation. HEART: S1, S2. ABDOMEN: Soft, nontender with bowel sounds present. EXTREMITIES: No gross edema or cyanosis. SKIN: Warm to touch. No signs of rash. He has several abscesses involving the left buttocks, scrotal and right groin areas with drainage. NEUROLOGIC: Answers questions appropriately. LABORATORY DATA: WBC 11.0, hemoglobin 14.3, platelets 278,000. Sed rate 30. Creatinine 0.8, BUN 12. Electrolytes unremarkable. Glucose 125 from 339 on admission. Lactic acid 1.5. Total bilirubin 0.4, AST 11, ALT 12, CRP 69.0, albumin 2.7. Procalcitonin 0.10. Pelvis CT and abdominal/scrotal ultrasound reviewed. IMPRESSION: 1. Multiple abscesses involving left buttocks, perineal and groin area. 2. Diabetes. 3. Hypertension. 4. Tobaccoism. PLAN: Continue the vancomycin and Zosyn. Monitor renal function closely. Awaiting culture results for further antibiotic modifications. General Surgery has been consulted. He is currently n.p.o. Maintain needs glycemic control. Smoking cessation. Thank you, Dr. Florez, for asking us to participate in this patient's care. Should you have further questions or concerns, please call. The patient is seen and examined and plan of care implemented by Dr. Kamran Remy. KAMRAN REMY MD DR: JAMES/roge JOB#: [id number] / [id number] [facility]
--- NOTE | 2019-08-22 12:46 | PDOC2 ---
CONSULT Date of Consult Date of Consult DATE: 08/22/19 TIME: 12:42 History of Present Illness Reason for Visit: The patient is a 49 year old male who reported to the hospital with groin and perirectal pain for several days. He denies fever or chills. He denies changes in bowel or bladder function. He was found during his evaluation to have a blood glucose over 400 and states this is a new thing for him. Past Medical History Past Medical History denies, newly diagnosed diabetic Family History Family History: No Significant Social History No ALCOHOL: rare Drugs: None Current Problem List Problem List Problems Medical Problems: (1) Abscess of groin, left Status: Acute (2) Abscess of groin, right Status: Acute Current Medications Current Medications Current Medications Piperacillin Sod/ Tazobactam Sod 4.5 gm/Sodium Chloride 100 ml @ 200 mls/hr 1X ONCE IV Last administered on 08/21/19at 14:50; Start 08/21/19 at 14:30; Stop 08/21/19 at 14:59; Status DC Vancomycin HCl (Vanco Per Pharmacy) 1 each 1X ONCE MC Last administered on 08/21/19at 16:19; Start 08/21/19 at 14:15; Stop 08/21/19 at 15:30; Status DC Sodium Chloride 1,000 ml @ 2,000 mls/hr Q30M IV ; Start 08/21/19 at 14:10; Stop 08/21/19 at 15:18; Status DC Morphine Sulfate (Morphine Sulfate) 4 mg PRN Q15MIN PRN IV/SQ PAIN GREATER THAN 3/10; Start 08/21/19 at 14:15; Stop 08/22/19 at 14:14 Vancomycin HCl 2 gm/Sodium Chloride 500 ml @ 250 mls/hr 1X ONCE IV Last administered on 08/21/19at 15:29; Start 08/21/19 at 14:45; Stop 08/21/19 at 16:44; Status DC Iohexol (Omnipaque 300 Mg/ml) 75 ml 1X ONCE IV Last administered on 08/21/19at 15:52; Start 08/21/19 at 15:30; Stop 08/21/19 at 15:31; Status DC Info (CONTRAST GIVEN -- Rx MONITORING) 1 each PRN DAILY PRN MC SEE COMMENTS; Start 08/21/19 at 15:30; Stop 08/23/19 at 15:29 Vancomycin HCl 1.25 gm/Sodium Chloride 250 ml @ 167 mls/hr Q12H IV Last administered on 08/22/19at 03:59; Start 08/22/19 at 03:30 Vancomycin HCl (Vancomycin Trough Level) 1 each 1X ONCE MC ; Start 08/23/19 at 03:00; Stop 08/23/19 at 03:01 Ondansetron HCl (Zofran) 4 mg PRN Q8HRS PRN IV NAUSEA/VOMITING; Start 08/21/19 at 16:15; Stop 08/22/19 at 16:14 Morphine Sulfate (Morphine Sulfate) 4 mg PRN Q2HR PRN IV PAIN Last administered on 08/22/19at 11:40; Start 08/21/19 at 16:15; Stop 08/22/19 at 16:14 Acetaminophen (Tylenol) 650 mg PRN Q4HRS PRN PO FEVER; Start 08/21/19 at 16:15; Stop 08/22/19 at 16:14 Insulin Human Lispro (HumaLOG) 0-9 UNITS TIDWMEALS SQ Last administered on 08/22/19at 08:23; Start 08/21/19 at 17:00 Dextrose (Dextrose 50%-Water Syringe) 12.5 gm PRN Q15MIN PRN IV SEE COMMENTS; Start 08/21/19 at 16:30 Dextrose 250 ml PRN Q15MIN PRN IV SEE COMMENTS; Start 08/21/19 at 16:30 Oxycodone/ Acetaminophen (Percocet 5/325) 1 tab PRN Q4HRS PRN PO PAIN Last a dministered on 08/22/19at 08:23; Start 08/21/19 at 17:45 Amlodipine Besylate (Norvasc) 2.5 mg DAILY PO Last administered on 08/21/19at 17:43; Start 08/21/19 at 17:45; Stop 08/21/19 at 18:10; Status DC Insulin Human Lispro (HumaLOG) 8 units 1X ONCE SQ Last administered on 08/21/19at 21:01; Start 08/21/19 at 21:00; Stop 08/21/19 at 21:01; Status DC Insulin Glargine (Lantus Syringe) 10 unit 1X ONCE SQ Last administered on 08/21/19at 21:02; Start 08/21/19 at 21:00; Stop 08/21/19 at 21:01; Status DC Ondansetron HCl (Zofran) 4 mg PRN Q6HRS PRN IV NAUSEA/VOMITING; Start 08/22/19 at 10:00; Stop 08/22/19 at 20:00 Fentanyl Citrate (Fentanyl 2ml Vial) 25 mcg PRN Q5MIN PRN IV MILD PAIN 1-3; Start 08/22/19 at 10:00; Stop 08/22/19 at 20:00 Fentanyl Citrate (Fentanyl 2ml Vial) 50 mcg PRN Q5MIN PRN IV MODERATE TO SEVERE PAIN; Start 08/22/19 at 10:00; Stop 08/22/19 at 20:00 Morphine Sulfate (Morphine Sulfate) 1 mg PRN Q10MIN PRN IV SEVERE PAIN 7-10; Start 08/22/19 at 10:00; Stop 08/22/19 at 20:00 Ringer's Solution 1,000 ml @ 30 mls/hr Q24H IV ; Start 08/22/19 at 10:00; Stop 08/22/19 at 21:59 Hydromorphone HCl (Dilaudid) 0.5 mg PRN Q10MIN PRN IV SEV PAIN, Second choice; Start 08/22/19 at 10:00; Stop 08/22/19 at 20:00 Prochlorperazine Edisylate (Compazine) 5 mg PACU PRN PRN IV NAUSEA, MRX1; Start 08/22/19 at 10:00; Stop 08/22/19 at 20:00 Heparin Sodium (Porcine) (Heparin Sodium) 5,000 unit Q8HRS SQ ; Start 08/22/19 at 11:00 Piperacillin Sod/ Tazobactam Sod 3.375 gm/Sodium Chloride 50 ml @ 100 mls/hr Q6HRS IV Last administered on 08/22/19at 12:03; Start 08/22/19 at 11:00 Vancomycin HCl (Vanco Per Pharmacy) 1 each PRN DAILY PRN MC SEE COMMENTS Last administered on 08/22/19at 11:28; Start 08/22/19 at 11:30 Lactobacillus Rhamnosus (Culturelle) 1 cap BID PO ; Start 08/22/19 at 21:00 Active Scripts Active Reported No Known Medications Prior To Admisstion (Info) Each 1 Each 1X Allergies Allergies: Coded Allergies: No Known Drug Allergies (Unverified , 08/21/19) ROS PSYCHOLOGICAL ROS: No: Anxiety, Behavioral Disorder, Concentration difficultie, Decreased libido, Depression, Disorientation, Hallucinations, Hostility, Irritablity, Memory difficulties, Mood Swings, Obsessive thoughts, Physical abuse, Sexual abuse, Sleep disturbances, Suicidal ideation, Other Respiratory: No: Cough, Hemoptysis, Orthopnea, Pleuritic Pain, Shortness of breath, SOB with excertion, Sputum Changes, Stridor, Tachypnea, Wheezing, Other Cardiovascular: No Chest Pain, No Palpitations, No Orthopnea, No Paroxysmal Noc. Dyspnea, No Edema, No Lt Headedness, No Other Gastrointestinal: No Nausea, No Vomiting, No Abdominal Pain, No Diarrhea, No Constipation, No Melena, No Hematochezia, No Other Musculoskeletal: No Gait Disturbance, No Joint Pain, No Joint Stiffness, No Joint Swelling, No Muscle Pain, No Muscular Weakness, No Pain In:, No Swelling In:, No Other Neurological: No Behavorial Changes, No Bowel/Bladder ControlChng, No Confusion, No Dizziness, No Gait Disturbance, No Headaches, No Impaired Coord/balance, No Memory Loss, No Numbness/Tingling, No Seizures, No Speech Problems, No Tremors, No Visual Changes, No Weakness, No Other Skin: Yes Other (pain in groin, scrotum, perianal skin) Physical Exam General: Alert, Oriented X3 HEENT: Atraumatic Lungs: Clear to auscultation Heart: Regular rate Abdomen: Soft Skin: Other (induration with fluctuance in right groin, left perirectal tissues, very tender with palpation making examination difficult) Psych/Mental Status: Mental status NL Vitals VITALS Vital Signs Date Time Temp Pulse Resp B/P (MAP) Pulse Ox O2 Delivery O2 Flow Rate FiO2 08/22/19 12:30 16 Room Air 08/22/19 11:00 97.9 83 126/72 (90) 94 97.9 Labs Labs Laboratory Tests Test 08/21/19 14:45 08/21/19 16:49 08/21/19 18:15 08/21/19 20:14 White Blood Count 9.4 x10^3/uL (4.0-11.0) Red Blood Count 5.37 x10^6/uL (4.30-5.70) Hemoglobin 15.2 g/dL (13.0-17.5) Hematocrit 45.5 % (39.0-53.0) Mean Corpuscular Volume 85 fL (79-100) Mean Corpuscular Hemoglobin 28 pg (25-35) Mean Corpuscular Hemoglobin Concent 34 g/dL (31-37) Red Cell Distribution Width 13.8 % (11.5-14.5) Platelet Count 300 x10^3/uL (140-400) Neutrophils (%) (Auto) 78 % (31-73) Lymphocytes (%) (Auto) 10 % (24-48) Monocytes (%) (Auto) 8 % (0-9) Eosinophils (%) (Auto) 2 % (0-3) Basophils (%) (Auto) 1 % (0-3) Neutrophils # (Auto) 7.3 x10^3/uL (1.8-7.7) Lymphocytes # (Auto) 1.0 x10^3/uL (1.0-4.8) Monocytes # (Auto) 0.8 x10^3/uL (0.0-1.1) Eosinophils # (Auto) 0.2 x10^3/uL (0.0-0.7) Basophils # (Auto) 0.1 x10^3/uL (0.0-0.2) Erythrocyte Sedimentation Rate 30 (0-15) Sodium Level 134 mmol/L (136-145) Potassium Level 4.1 mmol/L (3.5-5.1) Chloride Level 99 mmol/L (98-107) Carbon Dioxide Level 24 mmol/L (21-32) Anion Gap 11 (6-14) Blood Urea Nitrogen 14 mg/dL (8-26) Creatinine 1.0 mg/dL (0.7-1.3) Estimated GFR (Cockcroft-Gault) 95.7 BUN/Creatinine Ratio 14 (6-20) Glucose Level 339 mg/dL (70-99) Lactic Acid Level 1.5 mmol/L (0.4-2.0) 1.0 mmol/L (0.4-2.0) Calcium Level 9.4 mg/dL (8.5-10.1) Total Bilirubin 0.4 mg/dL (0.2-1.0) Aspartate Amino Transf (AST/SGOT) 11 U/L (15-37) Alanine Aminotransferase (ALT/SGPT) 12 U/L (16-63) Alkaline Phosphatase 128 U/L (46-116) C-Reactive Protein, Quantitative 69.0 mg/L (0-3.3) Total Protein 8.1 g/dL (6.4-8.2) Albumin 3.3 g/dL (3.4-5.0) Albumin/Globulin Ratio 0.7 (1.0-1.7) Procalcitonin 0.10 ng/mL (0.00-0.10) Glucose (Fingerstick) 254 mg/dL (70-99) 407 mg/dL (70-99) Test 08/22/19 07:05 08/22/19 07:19 08/22/19 11:30 08/22/19 11:40 White Blood Count 11.0 x10^3/uL (4.0-11.0) Red Blood Count 5.11 x10^6/uL (4.30-5.70) Hemoglobin 14.3 g/dL (13.0-17.5) Hematocrit 43.9 % (39.0-53.0) Mean Corpuscular Volume 86 fL (79-100) Mean Corpuscular Hemoglobin 28 pg (25-35) Mean Corpuscular Hemoglobin Concent 33 g/dL (31-37) Red Cell Distribution Width 13.5 % (11.5-14.5) Platelet Count 278 x10^3/uL (140-400) Neutrophils (%) (Auto) 75 % (31-73) Lymphocytes (%) (Auto) 12 % (24-48) Monocytes (%) (Auto) 10 % (0-9) Eosinophils (%) (Auto) 3 % (0-3) Basophils (%) (Auto) 1 % (0-3) Neutrophils # (Auto) 8.2 x10^3/uL (1.8-7.7) Lymphocytes # (Auto) 1.3 x10^3/uL (1.0-4.8) Monocytes # (Auto) 1.1 x10^3/uL (0.0-1.1) Eosinophils # (Auto) 0.3 x10^3/uL (0.0-0.7) Basophils # (Auto) 0.1 x10^3/uL (0.0-0.2) Sodium Level 137 mmol/L (136-145) Potassium Level 4.0 mmol/L (3.5-5.1) Chloride Level 103 mmol/L (98-107) Carbon Dioxide Level 25 mmol/L (21-32) Anion Gap 9 (6-14) Blood Urea Nitrogen 12 mg/dL (8-26) Creatinine 0.8 mg/dL (0.7-1.3) Estimated GFR (Cockcroft-Gault) 123.8 BUN/Creatinine Ratio 15 (6-20) Glucose Level 215 mg/dL (70-99) Calcium Level 9.2 mg/dL (8.5-10.1) Total Bilirubin 0.3 mg/dL (0.2-1.0) Aspartate Amino Transf (AST/SGOT) 12 U/L (15-37) Alanine Aminotransferase (ALT/SGPT) 12 U/L (16-63) Alkaline Phosphatase 107 U/L (46-116) Total Protein 7.3 g/dL (6.4-8.2) Albumin 2.7 g/dL (3.4-5.0) Albumin/Globulin Ratio 0.6 (1.0-1.7) Glucose (Fingerstick) 225 mg/dL (70-99) 125 mg/dL (70-99) Lactic Acid Level 0.6 mmol/L (0.4-2.0) Laboratory Tests Test 08/21/19 14:45 08/21/19 16:49 08/21/19 18:15 08/21/19 20:14 White Blood Count 9.4 x10^3/uL (4.0-11.0) Red Blood Count 5.37 x10^6/uL (4.30-5.70) Hemoglobin 15.2 g/dL (13.0-17.5) Hematocrit 45.5 % (39.0-53.0) Mean Corpuscular Volume 85 fL (79-100) Mean Corpuscular Hemoglobin 28 pg (25-35) Mean Corpuscular Hemoglobin Concent 34 g/dL (31-37) Red Cell Distribution Width 13.8 % (11.5-14.5) Platelet Count 300 x10^3/uL (140-400) Neutrophils (%) (Auto) 78 % (31-73) Lymphocytes (%) (Auto) 10 % (24-48) Monocytes (%) (Auto) 8 % (0-9) Eosinophils (%) (Auto) 2 % (0-3) Basophils (%) (Auto) 1 % (0-3) Neutrophils # (Auto) 7.3 x10^3/uL (1.8-7.7) Lymphocytes # (Auto) 1.0 x10^3/uL (1.0-4.8) Monocytes # (Auto) 0.8 x10^3/uL (0.0-1.1) Eosinophils # (Auto) 0.2 x10^3/uL (0.0-0.7) Basophils # (Auto) 0.1 x10^3/uL (0.0-0.2) Erythrocyte Sedimentation Rate 30 (0-15) Sodium Level 134 mmol/L (136-145) Potassium Level 4.1 mmol/L (3.5-5.1) Chloride Level 99 mmol/L (98-107) Carbon Dioxide Level 24 mmol/L (21-32) Anion Gap 11 (6-14) Blood Urea Nitrogen 14 mg/dL (8-26) Creatinine 1.0 mg/dL (0.7-1.3) Estimated GFR (Cockcroft-Gault) 95.7 BUN/Creatinine Ratio 14 (6-20) Glucose Level 339 mg/dL (70-99) Lactic Acid Level 1.5 mmol/L (0.4-2.0) 1.0 mmol/L (0.4-2.0) Calcium Level 9.4 mg/dL (8.5-10.1) Total Bilirubin 0.4 mg/dL (0.2-1.0) Aspartate Amino Transf (AST/SGOT) 11 U/L (15-37) Alanine Aminotransferase (ALT/SGPT) 12 U/L (16-63) Alkaline Phosphatase 128 U/L (46-116) C-Reactive Protein, Quantitative 69.0 mg/L (0-3.3) Total Protein 8.1 g/dL (6.4-8.2) Albumin 3.3 g/dL (3.4-5.0) Albumin/Globulin Ratio 0.7 (1.0-1.7) Procalcitonin 0.10 ng/mL (0.00-0.10) Glucose (Fingerstick) 254 mg/dL (70-99) 407 mg/dL (70-99) Test 08/22/19 07:05 08/22/19 07:19 08/22/19 11:30 08/22/19 11:40 White Blood Count 11.0 x10^3/uL (4.0-11.0) Red Blood Count 5.11 x10^6/uL (4.30-5.70) Hemoglobin 14.3 g/dL (13.0-17.5) Hematocrit 43.9 % (39.0-53.0) Mean Corpuscular Volume 86 fL (79-100) Mean Corpuscular Hemoglobin 28 pg (25-35) Mean Corpuscular Hemoglobin Concent 33 g/dL (31-37) Red Cell Distribution Width 13.5 % (11.5-14.5) Platelet Count 278 x10^3/uL (140-400) Neutrophils (%) (Auto) 75 % (31-73) Lymphocytes (%) (Auto) 12 % (24-48) Monocytes (%) (Auto) 10 % (0-9) Eosinophils (%) (Auto) 3 % (0-3) Basophils (%) (Auto) 1 % (0-3) Neutrophils # (Auto) 8.2 x10^3/uL (1.8-7.7) Lymphocytes # (Auto) 1.3 x10^3/uL (1.0-4.8) Monocytes # (Auto) 1.1 x10^3/uL (0.0-1.1) Eosinophils # (Auto) 0.3 x10^3/uL (0.0-0.7) Basophils # (Auto) 0.1 x10^3/uL (0.0-0.2) Sodium Level 137 mmol/L (136-145) Potassium Level 4.0 mmol/L (3.5-5.1) Chloride Level 103 mmol/L (98-107) Carbon Dioxide Level 25 mmol/L (21-32) Anion Gap 9 (6-14) Blood Urea Nitrogen 12 mg/dL (8-26) Creatinine 0.8 mg/dL (0.7-1.3) Estimated GFR (Cockcroft-Gault) 123.8 BUN/Creatinine Ratio 15 (6-20) Glucose Level 215 mg/dL (70-99) Calcium Level 9.2 mg/dL (8.5-10.1) Total Bilirubin 0.3 mg/dL (0.2-1.0) Aspartate Amino Transf (AST/SGOT) 12 U/L (15-37) Alanine Aminotransferase (ALT/SGPT) 12 U/L (16-63) Alkaline Phosphatase 107 U/L (46-116) Total Protein 7.3 g/dL (6.4-8.2) Albumin 2.7 g/dL (3.4-5.0) Albumin/Globulin Ratio 0.6 (1.0-1.7) Glucose (Fingerstick) 225 mg/dL (70-99) 125 mg/dL (70-99) Lactic Acid Level 0.6 mmol/L (0.4-2.0) Assessment/Plan Assessment/Plan 49 year old male, new diabetes, abscesses in R groin, possible scrotum, L perirectal space. Recommend operative drainage and wound care. MERLINE WILLIS MD Aug 22, 2019 12:46
[2019-08-22] MEDS ORDERED: LIDOCAINE 2% PF 5 ML VIAL. ONE (14:11)
[2019-08-22] MEDS ORDERED: ONDANSETRON PF 4 MG/2 ML VIAL. ONE (14:11)
[2019-08-22] MEDS ORDERED: DEXAMETHASONE SOD PHOS 4 MG/ML VIAL ONE (14:11)
[2019-08-22] MEDS ORDERED: fentaNYL PF VIAL 100 MCG/2 ML VIAL ONE ×2 (14:11→16:08)
[2019-08-22] MEDS ORDERED: PROPOFOL 20 ML IV ONE (14:11)
[2019-08-22] MEDS ORDERED: INSULIN LISPRO 100 UNIT/ML 3ML VIAL for OP,RR ONLY. SQ PRN (15:15)
[2019-08-22] MEDS ORDERED: SEVOFLURANE 31 TO 60 MINUTES. IH ONE (15:38)
--- NOTE | 2019-08-22 15:58 | PDOC4 ---
Operative Note Operative Note Operative Note: Preoperative Diagnosis: Left perirectal, right groin abscesses Postoperative Diagnosis: Same Procedure: Incision and drainage of left perirectal abscess, incision and drainage of right groin abscesses Surgeon: Raffi Anesthesia: Gen. EBL: 10 mL Specimen: Cultures to micrology Drains: None Complications: None Indication: The patient is a 49-year-old male who is in newly diagnosed diabetic. He presented a hospital with groin and perirectal pain. Evaluation confirms a sizable left perirectal abscess as well as a right inferior groin ab scess. We recommend for incision and drainage. The details and risks of surgery were discussed. The risks include bleeding, infection, recurrence, pain, anesthetic risk, scar tissue, potential need for additional surgery or procedure. He understands and would like to proceed Description: The patient was taken to the operating room and placed supine on the operating table. Gen. anesthesia was performed. He was then placed in lithotomy. The bilateral groins and perianal skin was prepped with Betadine and draped in a standard surgical manner. We directed our attention initially to the left perirectal abscess. There was some spontaneous drainage and cultures of this fluid were obtained and sent to microbiology. An incision was made overlying the fluctuant area with immediate return of a large amount of purulent fluid. The entire abscess cavity was then digitally probed freeing up any l oculations. The cavity was then fully irrigated and suctioned. In a similar manner an incision was made in the fluctuant area of the right inguinal region with similar return of purulent fluid. This cavity was also digitally explored, irrigated, and drained. There was a small right scrotal area that was also explored with a small incision draining any remaining fluid. Hemostasis was achieved with cautery. Each of the wounds were packed with sterile gauze and dressings were applied. The patient tolerated the procedure well and was sent to the recovery room in stable condition. At the end of the case all counts were correct. MERLINE WILLIS MD Aug 22, 2019 15:58
[2019-08-22] MEDS: fentaNYL PF VIAL 100 MCG/2 ML VIAL IV PRN ×2 (16:12→16:32)
[2019-08-22] MEDS ORDERED: HYDROmorphone 2 MG/ML VIAL ONE (16:29)
[2019-08-22] MEDS ORDERED: diphenhydrAMINE 50 MG/ML VIAL ONE (16:38)
[2019-08-22] MEDS: HYDROmorphone 2 MG/ML VIAL IV PRN ×2 (16:44→17:21)
[2019-08-22] MEDS ORDERED: diphenhydrAMINE 50 MG/ML VIAL IVP ONE (16:45)
[2019-08-22] MEDS: LACTOBACILLUS RHAMNOSUS GG 1 CAPSULE. PO SCH (21:36)
[2019-08-23] MEDS: PIPERACILLIN/TAZOBACTAM 3.375 GM in IV NORMAL SALINE 50ML 50 ML IV SCH ×4 (00:40→18:09)
[2019-08-23] MEDS: oxyCODONE/APAP 5/325 1 TAB TABLET PO PRN ×2 (01:58→07:51)
[2019-08-23 03:00] VITALS: BP 116/84
[2019-08-23 03:41] LABS: BASO # 0.1 x10^3/uL (0.0-0.2); BASO % 0 % (0-3); EOS % 0 % (0-3); HEMATOCRIT 40.3 % (39.0-53.0); HEMOGLOBIN 13.3 g/dL (13.0-17.5); LYMPH # 1.2 x10^3/uL (1.0-4.8); LYMPH % 9 % (24-48); MEAN CORPUSCULAR HEMOGLOBIN 28 pg (25-35); MEAN CORPUSCULAR HGB CONC 33 g/dL (31-37); MEAN CORPUSCULAR VOLUME 85 fL (79-100); MONO % 8 % (0-9); NEUT # 10.8 x10^3/uL (1.8-7.7); NEUT % 82 % (31-73); PLATELET COUNT 292 x10^3/uL (140-400); RED BLOOD COUNT 4.73 x10^6/uL (4.30-5.70); RED CELL DISTRIBUTION WIDTH 13.5 % (11.5-14.5); WHITE BLOOD COUNT 13.1 x10^3/uL (4.0-11.0)
[2019-08-23 04:04] LABS: ALBUMIN 2.6 g/dL (3.4-5.0); ALBUMIN/GLOBULIN RATIO 0.7 (1.0-1.7); CALCIUM 9.1 mg/dL (8.5-10.1); CREATININE 1.1 mg/dL (0.7-1.3); GFR 85.7; POTASSIUM 4.3 mmol/L (3.5-5.1); TOTAL BILIRUBIN 0.3 mg/dL (0.2-1.0); TOTAL PROTEIN 6.4 g/dL (6.4-8.2)
[2019-08-23 04:05] LABS: VANC TR 9.1 mcg/mL (10.0-20.0)
[2019-08-23] MEDS: VANCOMYCIN 1.25 GM in IV NORMAL SALINE 250ML 250 ML IV SCH ×3 (05:03→20:36)
[2019-08-23 05:42] LABS: HEMOGLOBIN A1C 13.5 % (4.8-5.6)
[2019-08-23] MEDS: VANCOMYCIN PER PHARMACY MC PRN (05:43)
[2019-08-23] MEDS: HEPARIN for SUB-Q USE 5,000 UNIT/ML VIAL. SQ SCH ×3 (06:43→22:12)
[2019-08-23 07:00] VITALS: BP_SYST 129; BP_SYST 91; BP_DIAS 54; BP_DIAS 72
[2019-08-23] MEDS: INSULIN LISPRO 300 UNITS/3 ML VIAL. SQ SCH ×4 (07:59→22:12)
--- NOTE | 2019-08-23 08:02 | PDOC ---
PROGRESS NOTES History of Present Illness History of Present Illness VTE Prophylaxis Ordered VTE Prophylaxis Devices: No VTE Pharmacological Prophylaxi: No Assessment/Plan Assessment/Plan cellulits sepsis groin abcess, Several complex, heterogeneously hypoechoic collections with predominately peripheral vascularity seen at the perineum, base of the scrotum, as well as along the left aspect of the gluteal fold most compatible with phlegmonous change/early abscess formation. The degree of internal complexity of these collections may render them difficult to drainage. Prominent heterogeneous collection with intermediate density internal contents and peripheral enhancement along the left aspect of the gluteal cleft measuring approximately 4.4 x 2.8 x 5.0 cm. This collection and surrounding soft tissue inflammatory changes extend to the posterior wall of the anorectal region without clear communication on this study ON CT 08/21 No findings to suggest epididymoorchitis. SEVERE PROTEIN-CALORIC MALNUTRITION consult gen surg. imaging showed 3 abcesses, buttock, groin htn, reactive dm2 BLOOD CULT ID CONSULT IV VANC, ZOSYN DVT PROPHYLAXIS A1C Operative Note Operative Note Operative Note Operative Note: Preoperative Diagnosis: Left perirectal, right groin abscesses Postoperative Diagnosis: Same Procedure: Incision and drainage of left perirectal abscess, incision and drainage of right groin abscesses Surgeon: Raffi Anesthesia: Gen. EBL: 10 mL Specimen: Cultures to micrology Drains: None Complications: None Indication: The patient is a 49-year-old male who is in newly diagnosed diabetic. He presented a hospital with groin and perirectal pain. Evaluation confirms a sizable left perirectal abscess as well as a right inferior groin abscess. 39 MIN PT EXAM, CHART REVIEW, > 50% OF TIME SPENT WITH EXAM, CHART REVIEW, PT CARE COORDINATION Vitals Vitals Vital Signs Date Time Temp Pulse Resp B/P (MAP) Pulse Ox O2 Delivery O2 Flow Rate FiO2 08/23/19 07:59 18 Room Air 08/23/19 03:00 98.1 83 116/84 (95) 97 98.1 08/22/19 17:21 2.0 Physical Exam General: Alert, Oriented X3, Cooperative, mild distress, moderate distress Heart: Regular rate, Normal S1, Normal S2 Lungs: Clear Abdomen: Soft, No tenderness, No hepatosplenomegaly Extremities: No clubbing, No cyanosis, No edema Skin: Other (induration with fluctuance in right groin, left perirectal tissues, very tender with palpation making examination difficult) Labs LABS Laboratory Tests Test 08/22/19 11:30 08/22/19 11:40 08/22/19 15:00 08/22/19 18:37 Lactic Acid Level 0.6 mmol/L (0.4-2.0) Glucose (Fingerstick) 125 mg/dL (70-99) 161 mg/dL (70-99) 186 mg/dL (70-99) Test 08/22/19 20:36 08/23/19 03:30 Glucose (Fingerstick) 277 mg/dL (70-99) White Blood Count 13.1 x10^3/uL (4.0-11.0) Red Blood Count 4.73 x10^6/uL (4.30-5.70) Hemoglobin 13.3 g/dL (13.0-17.5) Hematocrit 40.3 % (39.0-53.0) Mean Corpuscular Volume 85 fL (79-100) Mean Corpuscular Hemoglobin 28 pg (25-35) Mean Corpuscular Hemoglobin Concent 33 g/dL (31-37) Red Cell Distribution Width 13.5 % (11.5-14.5) Platelet Count 292 x10^3/uL (140-400) Neutrophils (%) (Auto) 82 % (31-73) Lymphocytes (%) (Auto) 9 % (24-48) Monocytes (%) (Auto) 8 % (0-9) Eosinophils (%) (Auto) 0 % (0-3) Basophils (%) (Auto) 0 % (0-3) Neutrophils # (Auto) 10.8 x10^3/uL (1.8-7.7) Lymphocytes # (Auto) 1.2 x10^3/uL (1.0-4.8) Monocytes # (Auto) 1.0 x10^3/uL (0.0-1.1) Eosinophils # (Auto) 0.0 x10^3/uL (0.0-0.7) Basophils # (Auto) 0.1 x10^3/uL (0.0-0.2) Sodium Level 136 mmol/L (136-145) Potassium Level 4.3 mmol/L (3.5-5.1) Chloride Level 100 mmol/L (98-107) Carbon Dioxide Level 27 mmol/L (21-32) Anion Gap 9 (6-14) Blood Urea Nitrogen 15 mg/dL (8-26) Creatinine 1.1 mg/dL (0.7-1.3) Estimated GFR (Cockcroft-Gault) 85.7 BUN/Creatinine Ratio 14 (6-20) Glucose Level 293 mg/dL (70-99) Calcium Level 9.1 mg/dL (8.5-10.1) Total Bilirubin 0.3 mg/dL (0.2-1.0) Aspartate Amino Transf (AST/SGOT) 13 U/L (15-37) Alanine Aminotransferase (ALT/SGPT) 10 U/L (16-63) Alkaline Phosphatase 104 U/L (46-116) Total Protein 6.4 g/dL (6.4-8.2) Albumin 2.6 g/dL (3.4-5.0) Albumin/Globulin Ratio 0.7 (1.0-1.7) Vancomycin Level Trough 9.1 mcg/mL (10.0-20.0) Vancomycin Last Dose Date Vancomycin Last Dose Time 1529 Assessment and Plan Assessmemt and Plan Problems Medical Problems: (1) Abscess of groin, left Status: Acute (2) Abscess of groin, right Status: Acute Comment Review of Relevant I have reviewed the following items liliana (where applicable) has been applied. Labs Laboratory Tests Test 08/21/19 14:45 08/21/19 16:49 08/21/19 18:15 08/21/19 20:14 White Blood Count 9.4 x10^3/uL (4.0-11.0) Red Blood Count 5.37 x10^6/uL (4.30-5.70) Hemoglobin 15.2 g/dL (13.0-17.5) Hematocrit 45.5 % (39.0-53.0) Mean Corpuscular Volume 85 fL (79-100) Mean Corpuscular Hemoglobin 28 pg (25-35) Mean Corpuscular Hemoglobin Concent 34 g/dL (31-37) Red Cell Distribution Width 13.8 % (11.5-14.5) Platelet Count 300 x10^3/uL (140-400) Neutrophils (%) (Auto) 78 % (31-73) Lymphocytes (%) (Auto) 10 % (24-48) Monocytes (%) (Auto) 8 % (0-9) Eosinophils (%) (Auto) 2 % (0-3) Basophils (%) (Auto) 1 % (0-3) Neutrophils # (Auto) 7.3 x10^3/uL (1.8-7.7) Lymphocytes # (Auto) 1.0 x10^3/uL (1.0-4.8) Monocytes # (Auto) 0.8 x10^3/uL (0.0-1.1) Eosinophils # (Auto) 0.2 x10^3/uL (0.0-0.7) Basophils # (Auto) 0.1 x10^3/uL (0.0-0.2) Erythrocyte Sedimentation Rate 30 (0-15) Sodium Level 134 mmol/L (136-145) Potassium Level 4.1 mmol/L (3.5-5.1) Chloride Level 99 mmol/L (98-107) Carbon Dioxide Level 24 mmol/L (21-32) Anion Gap 11 (6-14) Blood Urea Nitrogen 14 mg/dL (8-26) Creatinine 1.0 mg/dL (0.7-1.3) Estimated GFR (Cockcroft-Gault) 95.7 BUN/Creatinine Ratio 14 (6-20) Glucose Level 339 mg/dL (70-99) Lactic Acid Level 1.5 mmol/L (0.4-2.0) 1.0 mmol/L (0.4-2.0) Calcium Level 9.4 mg/dL (8.5-10.1) Total Bilirubin 0.4 mg/dL (0.2-1.0) Aspartate Amino Transf (AST/SGOT) 11 U/L (15-37) Alanine Aminotransferase (ALT/SGPT) 12 U/L (16-63) Alkaline Phosphatase 128 U/L (46-116) C-Reactive Protein, Quantitative 69.0 mg/L (0-3.3) Total Protein 8.1 g/dL (6.4-8.2) Albumin 3.3 g/dL (3.4-5.0) Albumin/Globulin Ratio 0.7 (1.0-1.7) Procalcitonin 0.10 ng/mL (0.00-0.10) Glucose (Fingerstick) 254 mg/dL (70-99) 407 mg/dL (70-99) Test 08/22/19 07:05 08/22/19 07:19 08/22/19 11:30 08/22/19 11:40 White Blood Count 11.0 x10^3/uL (4.0-11.0) Red Blood Count 5.11 x10^6/uL (4.30-5.70) Hemoglobin 14.3 g/dL (13.0-17.5) Hematocrit 43.9 % (39.0-53.0) Mean Corpuscular Volume 86 fL (79-100) Mean Corpuscular Hemoglobin 28 pg (25-35) Mean Corpuscular Hemoglobin Concent 33 g/dL (31-37) Red Cell Distribution Width 13.5 % (11.5-14.5) Platelet Count 278 x10^3/uL (140-400) Neutrophils (%) (Auto) 75 % (31-73) Lymphocytes (%) (Auto) 12 % (24-48) Monocytes (%) (Auto) 10 % (0-9) Eosinophils (%) (Auto) 3 % (0-3) Basophils (%) (Auto) 1 % (0-3) Neutrophils # (Auto) 8.2 x10^3/uL (1.8-7.7) Lymphocytes # (Auto) 1.3 x10^3/uL (1.0-4.8) Monocytes # (Auto) 1.1 x10^3/uL (0.0-1.1) Eosinophils # (Auto) 0.3 x10^3/uL (0.0-0.7) Basophils # (Auto) 0.1 x10^3/uL (0.0-0.2) Sodium Level 137 mmol/L (136-145) Potassium Level 4.0 mmol/L (3.5-5.1) Chloride Level 103 mmol/L (98-107) Carbon Dioxide Level 25 mmol/L (21-32) Anion Gap 9 (6-14) Blood Urea Nitrogen 12 mg/dL (8-26) Creatinine 0.8 mg/dL (0.7-1.3) Estimated GFR (Cockcroft-Gault) 123.8 BUN/Creatinine Ratio 15 (6-20) Glucose Level 215 mg/dL (70-99) Hemoglobin A1c 13.5 % (4.8-5.6) Calcium Level 9.2 mg/dL (8.5-10.1) Total Bilirubin 0.3 mg/dL (0.2-1.0) Aspartate Amino Transf (AST/SGOT) 12 U/L (15-37) Alanine Aminotransferase (ALT/SGPT) 12 U/L (16-63) Alkaline Phosphatase 107 U/L (46-116) Total Protein 7.3 g/dL (6.4-8.2) Albumin 2.7 g/dL (3.4-5.0) Albumin/Globulin Ratio 0.6 (1.0-1.7) Glucose (Fingerstick) 225 mg/dL (70-99) 125 mg/dL (70-99) Lactic Acid Level 0.6 mmol/L (0.4-2.0) Test 08/22/19 15:00 08/22/19 18:37 08/22/19 20:36 08/23/19 03:30 Glucose (Fingerstick) 161 mg/dL (70-99) 186 mg/dL (70-99) 277 mg/dL (70-99) White Blood Count 13.1 x10^3/uL (4.0-11.0) Red Blood Count 4.73 x10^6/uL (4.30-5.70) Hemoglobin 13.3 g/dL (13.0-17.5) Hematocrit 40.3 % (39.0-53.0) Mean Corpuscular Volume 85 fL (79-100) Mean Corpuscular Hemoglobin 28 pg (25-35) Mean Corpuscular Hemoglobin Concent 33 g/dL (31-37) Red Cell Distribution Width 13.5 % (11.5-14.5) Platelet Count 292 x10^3/uL (140-400) Neutrophils (%) (Auto) 82 % (31-73) Lymphocytes (%) (Auto) 9 % (24-48) Monocytes (%) (Auto) 8 % (0-9) Eosinophils (%) (Auto) 0 % (0-3) Basophils (%) (Auto) 0 % (0-3) Neutrophils # (Auto) 10.8 x10^3/uL (1.8-7.7) Lymphocytes # (Auto) 1.2 x10^3/uL (1.0-4.8) Monocytes # (Auto) 1.0 x10^3/uL (0.0-1.1) Eosinophils # (Auto) 0.0 x10^3/uL (0.0-0.7) Basophils # (Auto) 0.1 x10^3/uL (0.0-0.2) Sodium Level 136 mmol/L (136-145) Potassium Level 4.3 mmol/L (3.5-5.1) Chloride Level 100 mmol/L (98-107) Carbon Dioxide Level 27 mmol/L (21-32) Anion Gap 9 (6-14) Blood Urea Nitrogen 15 mg/dL (8-26) Creatinine 1.1 mg/dL (0.7-1.3) Estimated GFR (Cockcroft-Gault) 85.7 BUN/Creatinine Ratio 14 (6-20) Glucose Level 293 mg/dL (70-99) Calcium Level 9.1 mg/dL (8.5-10.1) Total Bilirubin 0.3 mg/dL (0.2-1.0) Aspartate Amino Transf (AST/SGOT) 13 U/L (15-37) Alanine Aminotransferase (ALT/SGPT) 10 U/L (16-63) Alkaline Phosphatase 104 U/L (46-116) Total Protein 6.4 g/dL (6.4-8.2) Albumin 2.6 g/dL (3.4-5.0) Albumin/Globulin Ratio 0.7 (1.0-1.7) Vancomycin Level Trough 9.1 mcg/mL (10.0-20.0) Vancomycin Last Dose Date Vancomycin Last Dose Time 1530 Laboratory Tests Test 08/22/19 11:30 08/22/19 11:40 08/22/19 15:00 08/22/19 18:37 Lactic Acid Level 0.6 mmol/L (0.4-2.0) Glucose (Fingerstick) 125 mg/dL (70-99) 161 mg/dL (70-99) 186 mg/dL (70-99) Test 08/22/19 20:36 08/23/19 03:30 Glucose (Fingerstick) 277 mg/dL (70-99) White Blood Count 13.1 x10^3/uL (4.0-11.0) Red Blood Count 4.73 x10^6/uL (4.30-5.70) Hemoglobin 13.3 g/dL (13.0-17.5) Hematocrit 40.3 % (39.0-53.0) Mean Corpuscular Volume 85 fL (79-100) Mean Corpuscular Hemoglobin 28 pg (25-35) Mean Corpuscular Hemoglobin Concent 33 g/dL (31-37) Red Cell Distribution Width 13.5 % (11.5-14.5) Platelet Count 292 x10^3/uL (140-400) Neutrophils (%) (Auto) 82 % (31-73) Lymphocytes (%) (Auto) 9 % (24-48) Monocytes (%) (Auto) 8 % (0-9) Eosinophils (%) (Auto) 0 % (0-3) Basophils (%) (Auto) 0 % (0-3) Neutrophils # (Auto) 10.8 x10^3/uL (1.8-7.7) Lymphocytes # (Auto) 1.2 x10^3/uL (1.0-4.8) Monocytes # (Auto) 1.0 x10^3/uL (0.0-1.1) Eosinophils # (Auto) 0.0 x10^3/uL (0.0-0.7) Basophils # (Auto) 0.1 x10^3/uL (0.0-0.2) Sodium Level 136 mmol/L (136-145) Potassium Level 4.3 mmol/L (3.5-5.1) Chloride Level 100 mmol/L (98-107) Carbon Dioxide Level 27 mmol/L (21-32) Anion Gap 9 (6-14) Blood Urea Nitrogen 15 mg/dL (8-26) Creatinine 1.1 mg/dL (0.7-1.3) Estimated GFR (Cockcroft-Gault) 85.7 BUN/Creatinine Ratio 14 (6-20) Glucose Level 293 mg/dL (70-99) Calcium Level 9.1 mg/dL (8.5-10.1) Total Bilirubin 0.3 mg/dL (0.2-1.0) Aspartate Amino Transf (AST/SGOT) 13 U/L (15-37) Alanine Aminotransferase (ALT/SGPT) 10 U/L (16-63) Alkaline Phosphatase 104 U/L (46-116) Total Protein 6.4 g/dL (6.4-8.2) Albumin 2.6 g/dL (3.4-5.0) Albumin/Globulin Ratio 0.7 (1.0-1.7) Vancomycin Level Trough 9.1 mcg/mL (10.0-20.0) Vancomycin Last Dose Date Vancomycin Last Dose Time 1530 Microbiology 08/21/19 Blood Culture - Preliminary, Resulted NO GROWTH AFTER 1 DAY Medications Current Medications Piperacillin Sod/ Tazobactam Sod 4.5 gm/Sodium Chloride 100 ml @ 200 mls/hr 1X ONCE IV Last administered on 08/21/19at 14:50; Start 08/21/19 at 14:30; Stop 08/21/19 at 14:59; Status DC Vancomycin HCl (Vanco Per Pharmacy) 1 each 1X ONCE MC Last administered on 08/21/19at 16:19; Start 08/21/19 at 14:15; Stop 08/21/19 at 15:30; Status DC Sodium Chloride 1,000 ml @ 2,000 mls/hr Q30M IV ; Start 08/21/19 at 14:10; Stop 08/21/19 at 15:18; Status DC Morphine Sulfate (Morphine Sulfate) 4 mg PRN Q15MIN PRN IV/SQ PAIN GREATER THAN 3/10; Start 08/21/19 at 14:15; Stop 08/22/19 at 14:14; Status DC Vancomycin HCl 2 gm/Sodium Chloride 500 ml @ 250 mls/hr 1X ONCE IV Last administered on 08/21/19at 15:29; Start 08/21/19 at 14:45; Stop 08/21/19 at 16:44; Status DC Iohexol (Omnipaque 300 Mg/ml) 75 ml 1X ONCE IV Last administered on 08/21/19at 15:52; Start 08/21/19 at 15:30; Stop 08/21/19 at 15:31; Status DC Info (CONTRAST GIVEN -- Rx MONITORING) 1 each PRN DAILY PRN MC SEE COMMENTS; Start 08/21/19 at 15:30; Stop 08/23/19 at 15:29 Vancomycin HCl 1.25 gm/Sodium Chloride 250 ml @ 167 mls/hr Q12H IV Last administered on 08/22/19at 17:42; Start 08/22/19 at 03:30; Stop 08/23/19 at 04:29; Status DC Vancomycin HCl (Vancomycin Trough Level) 1 each 1X ONCE MC Last administered on 08/23/19at 05:10; Start 08/23/19 at 03:00; Stop 08/23/19 at 03:01; Status DC Ondansetron HCl (Zofran) 4 mg PRN Q8HRS PRN IV NAUSEA/VOMITING; Start 08/21/19 at 16:15; Stop 08/22/19 at 16:14; Status DC Morphine Sulfate (Morphine Sulfate) 4 mg PRN Q2HR PRN IV PAIN Last administered on 08/22/19at 11:40; Start 08/21/19 at 16:15; Stop 08/22/19 at 16:14; Status DC Acetaminophen (Tylenol) 650 mg PRN Q4HRS PRN PO FEVER; Start 08/21/19 at 16:15; Stop 08/22/19 at 16:14; Status DC Insulin Human Lispro (HumaLOG) 0-9 UNITS TIDWMEALS SQ Last administered on 08/23/19at 07:59; Start 08/21/19 at 17:00 Dextrose (Dextrose 50%-Water Syringe) 12.5 gm PRN Q15MIN PRN IV SEE COMMENTS; Start 08/21/19 at 16:30 Dextrose 250 ml PRN Q15MIN PRN IV SEE COMMENTS; Start 08/21/19 at 16:30 Oxycodone/ Acetaminophen (Percocet 5/325) 1 tab PRN Q4HRS PRN PO PAIN Last administered on 08/23/19at 07:59; Start 08/21/19 at 17:45 Amlodipine Besylate (Norvasc) 2.5 mg DAILY PO Last administered on 08/21/19at 17:43; Start 08/21/19 at 17:45; Stop 08/21/19 at 18:10; Status DC Insulin Human Lispro (HumaLOG) 8 units 1X ONCE SQ Last administered on 08/21/19at 21:01; Start 08/21/19 at 21:00; Stop 08/21/19 at 21:01; Status DC Insulin Glargine (Lantus Syringe) 10 unit 1X ONCE SQ Last administered on 08/21/19at 21:02; Start 08/21/19 at 21:00; Stop 08/21/19 at 21:01; Status DC Ondansetron HCl (Zofran) 4 mg PRN Q6HRS PRN IV NAUSEA/VOMITING; Start 08/22/19 at 10:00; Stop 08/22/19 at 20:00; Status DC Fentanyl Citrate (Fentanyl 2ml Vial) 25 mcg PRN Q5MIN PRN IV MILD PAIN 1-3; Start 08/22/19 at 10:00; Stop 08/22/19 at 20:00; Status DC Fentanyl Citrate (Fentanyl 2ml Vial) 50 mcg PRN Q5MIN PRN IV MODERATE TO SEVERE PAIN Last administered on 08/22/19at 16:32; Start 08/22/19 at 10:00; Stop 08/22/19 at 20:00; Status DC Morphine Sulfate (Morphine Sulfate) 1 mg PRN Q10MIN PRN IV SEVERE PAIN 7-10; Start 08/22/19 at 10:00; Stop 08/22/19 at 20:00; Status DC Ringer's Solution 1,000 ml @ 30 mls/hr Q24H IV ; Start 08/22/19 at 10:00; Stop 08/22/19 at 21:59; Status DC Hydromorphone HCl (Dilaudid) 0.5 mg PRN Q10MIN PRN IV SEV PAIN, Second choice Last administered on 08/22/19at 17:21; Start 08/22/19 at 10:00; Stop 08/22/19 at 20:00; Status DC Prochlorperazine Edisylate (Compazine) 5 mg PACU PRN PRN IV NAUSEA, MRX1; Start 08/22/19 at 10:00; Stop 08/22/19 at 20:00; Status DC Heparin Sodium (Porcine) (Heparin Sodium) 5,000 unit Q8HRS SQ Last administered on 08/23/19at 06:43; Start 08/22/19 at 11:00 Piperacillin Sod/ Tazobactam Sod 3.375 gm/Sodium Chloride 50 ml @ 100 mls/hr Q6HRS IV Last administered on 08/23/19at 06:43; Start 08/22/19 at 11:00 Vancomycin HCl (Vanco Per Pharmacy) 1 each PRN DAILY PRN MC SEE COMMENTS Last administered on 08/23/19at 05:43; Start 08/22/19 at 11:30 Lactobacillus Rhamnosus (Culturelle) 1 cap BID PO Last administered on 08/22/19at 21:44; Start 08/22/19 at 21:00 Ondansetron HCl (Zofran) 4 mg STK-MED ONCE .ROUTE ; Start 08/22/19 at 14:11; Stop 08/22/19 at 14:11; Status DC Propofol 20 ml @ As Directed STK-MED ONCE IV ; Start 08/22/19 at 14:11; Stop 08/22/19 at 14:11; Status DC Lidocaine HCl (Lidocaine Pf 2% Vial) 5 ml STK-MED ONCE .ROUTE ; Start 08/22/19 at 14:11; Stop 08/22/19 at 14:11; Status DC Dexamethasone Sodium Phosphate (Decadron) 4 mg STK-MED ONCE .ROUTE ; Start 08/22/19 at 14:11; Stop 08/22/19 at 14:11; Status DC Fentanyl Citrate (Fentanyl 2ml Vial) 100 mcg STK-MED ONCE .ROUTE ; Start 08/22/19 at 14:11; Stop 08/22/19 at 14:11; Status DC Insulin Human Lispro (HumaLOG VIAL for OP,RR ONLY) 0-10 units PRN Q1HR PRN SQ PER PROTOCOL Last administered on 08/22/19at 16:00; Start 08/22/19 at 15:15; Stop 08/23/19 at 15:14 Sevoflurane (Ultane) 30 ml STK-MED ONCE IH ; Start 08/22/19 at 15:38; Stop 08/22/19 at 15:38; Status DC Fentanyl Citrate (Fentanyl 2ml Vial) 100 mcg STK-MED ONCE .ROUTE ; Start 08/22/19 at 16:08; Stop 08/22/19 at 16:08; Status DC Hydromorphone HCl (Dilaudid) 2 mg STK-MED ONCE .ROUTE ; Start 08/22/19 at 16:29; Stop 08/22/19 at 16:29; Status DC Diphenhydramine HCl (Benadryl) 50 mg STK-MED ONCE .ROUTE ; Start 08/22/19 at 16:38; Stop 08/22/19 at 16:38; Status DC Diphenhydramine HCl (Benadryl) 25 mg 1X ONCE IVP Last administered on 08/22/19at 16:45; Start 08/22/19 at 16:45; Stop 08/22/19 at 16:46; Status DC Vancomycin HCl 1.25 gm/Sodium Chloride 250 ml @ 167 mls/hr Q8H IV Last administered on 08/23/19at 05:03; Start 08/23/19 at 04:30 Vancomycin HCl (Vancomycin Trough Level) 1 each 1X ONCE MC ; Start 08/24/19 at 04:30; Stop 08/24/19 at 04:31 Active Scripts Active Reported No Known Medications Prior To Admisstion (Info) Each 1 Each MC 1X Vitals/I & O Vital Sign - Last 24 Hours 08/22/19 08/22/19 08/22/19 08/22/19 08:23 10:23 11:00 11:40 Temp 97.9 97.9 Pulse 83 Resp 16 16 18 16 B/P (MAP) 126/72 (90) Pulse Ox 94 O2 Delivery Room Air Room Air Room Air Room Air 08/22/19 08/22/19 08/22/19 08/22/19 12:30 15:02 16:02 16:17 Temp 98.3 98.1 98.3 98.1 Pulse 90 85 77 Resp 16 16 16 16 B/P (MAP) 153/91 135/93 136/85 Pulse Ox 96 99 98 O2 Delivery Room Air Room Air Simple Mask Nasal Cannula O2 Flow Rate 10 2 08/22/19 08/22/19 08/22/19 08/22/19 16:32 16:32 16:45 16:47 Pulse 78 77 Resp 16 16 2 16 B/P (MAP) 144/94 127/86 Pulse Ox 100 100 O2 Delivery Nasal Cannula Room Air Nasal Cannula Nasal Cannula O2 Flow Rate 2 2 08/22/19 08/22/19 08/22/19 08/22/19 17:02 17:21 17:35 17:52 Temp 98.6 98.6 Pulse 75 78 Resp 14 2 18 16 B/P (MAP) 126/77 126/89 (101) Pulse Ox 100 100 95 O2 Delivery Nasal Cannula Nasal Cannula Room Air Room Air O2 Flow Rate 2 2.0 9/2108/22/19 08/22/19 08/22/19 18:30 19:00 19:43 19:50 Temp 98.1 98.1 Pulse 87 88 87 Resp 18 18 B/P (MAP) 127/88 (101) 132/99 (110) 112/79 (90) Pulse Ox 95 100 97 O2 Delivery Room Air Room Air Room Air Room Air 08/22/19 08/22/19 08/22/19 08/23/19 21:44 22:40 22:59 01:58 Temp 98.1 98.1 Pulse 82 Resp 20 20 18 20 B/P (MAP) 113/76 (88) Pulse Ox 94 O2 Delivery Room Air Room Air 08/23/19 08/23/19 08/23/19 03:00 03:49 07:59 Temp 98.1 98.1 Pulse 83 Resp 20 18 B/P (MAP) 116/84 (95) Pulse Ox 97 O2 Delivery Room Air Room Air Room Air Intake and Output 08/22/19 08/22/19 08/23/19 15:00 23:00 07:00 Intake Total 480 ml 1500 ml Balance 480 ml 1500 ml FRANSISCO CANTU MD Aug 23, 2019 08:02
[2019-08-23] MEDS: LACTOBACILLUS RHAMNOSUS GG 1 CAPSULE. PO SCH ×2 (09:27→20:37)
--- NOTE | 2019-08-23 10:11 | PDOC ---
Infectious Disease Note Subjective Subjective s/p surgery, I and D c/o pain Denies F/C/S/N/V/D ROS ROS per HPI Vital Sign Vital Signs Vital Signs Date Time Temp Pulse Resp B/P (MAP) Pulse Ox O2 Delivery O2 Flow Rate FiO2 08/23/19 10:03 16 Room Air 08/23/19 07:00 98.2 77 129/72 (91) 95 98.2 08/22/19 17:21 2.0 Physical Exam PHYSICAL EXAM GENERAL: Lying down, alert, appears comfortable HEENT: Pupils equally round. Oropharynx clear. NECK: Supple. LUNGS: Clear to auscultation. HEART: S1, S2. ABDOMEN: Soft, nontender with bowel sounds present. EXTREMITIES: No gross edema or cyanosis. SKIN: left Lilibeth-rectal, scrotal and right groin post-op dressings in place NEUROLOGIC: Answers questions appropriately. Labs Lab Laboratory Tests Test 08/22/19 11:30 08/22/19 11:40 08/22/19 15:00 08/22/19 18:37 Lactic Acid Level 0.6 mmol/L (0.4-2.0) Glucose (Fingerstick) 125 mg/dL (70-99) 161 mg/dL (70-99) 186 mg/dL (70-99) Test 08/22/19 20:36 08/23/19 03:30 08/23/19 07:42 Glucose (Fingerstick) 277 mg/dL (70-99) 233 mg/dL (70-99) White Blood Count 13.1 x10^3/uL (4.0-11.0) Red Blood Count 4.73 x10^6/uL (4.30-5.70) Hemoglobin 13.3 g/dL (13.0-17.5) Hematocrit 40.3 % (39.0-53.0) Mean Corpuscular Volume 85 fL (79-100) Mean Corpuscular Hemoglobin 28 pg (25-35) Mean Corpuscular Hemoglobin Concent 33 g/dL (31-37) Red Cell Distribution Width 13.5 % (11.5-14.5) Platelet Count 292 x10^3/uL (140-400) Neutrophils (%) (Auto) 82 % (31-73) Lymphocytes (%) (Auto) 9 % (24-48) Monocytes (%) (Auto) 8 % (0-9) Eosinophils (%) (Auto) 0 % (0-3) Basophils (%) (Auto) 0 % (0-3) Neutrophils # (Auto) 10.8 x10^3/uL (1.8-7.7) Lymphocytes # (Auto) 1.2 x10^3/uL (1.0-4.8) Monocytes # (Auto) 1.0 x10^3/uL (0.0-1.1) Eosinophils # (Auto) 0.0 x10^3/uL (0.0-0.7) Basophils # (Auto) 0.1 x10^3/uL (0.0-0.2) Sodium Level 136 mmol/L (136-145) Potassium Level 4.3 mmol/L (3.5-5.1) Chloride Level 100 mmol/L (98-107) Carbon Dioxide Level 27 mmol/L (21-32) Anion Gap 9 (6-14) Blood Urea Nitrogen 15 mg/dL (8-26) Creatinine 1.1 mg/dL (0.7-1.3) Estimated GFR (Cockcroft-Gault) 85.7 BUN/Creatinine Ratio 14 (6-20) Glucose Level 293 mg/dL (70-99) Calcium Level 9.1 mg/dL (8.5-10.1) Total Bilirubin 0.3 mg/dL (0.2-1.0) Aspartate Amino Transf (AST/SGOT) 13 U/L (15-37) Alanine Aminotransferase (ALT/SGPT) 10 U/L (16-63) Alkaline Phosphatase 104 U/L (46-116) Total Protein 6.4 g/dL (6.4-8.2) Albumin 2.6 g/dL (3.4-5.0) Albumin/Globulin Ratio 0.7 (1.0-1.7) Vancomycin Level Trough 9.1 mcg/mL (10.0-20.0) Vancomycin Last Dose Date Vancomycin Last Dose Time 1530 Micro Microbiology 08/21/19 Blood Culture - Preliminary, Resulted NO GROWTH AFTER 1 DAY Objective Assessment Multiple abscesses involving left buttocks, perineal/groin areas s/p I and D, 08/22 Diabetes Hypertension Tobaccoism Leukocytosis multifactorial, reactive to steroids, surgery and infection Plan Plan of Care vanc and Zosyn Probiotics Monitor renal function closely Trough 9.1 f/u cultures Glycemic control Smoking cessation Local wound care as directed D/w nursing Attending Co-Sign The patient was seen and interviewed as well as examined at the bedside. The chart was reviewed. The case was discussed. Agree with the plan of care. LASHELL DA SILVA APRN Aug 23, 2019 10:11 NATHALY REMY MD Aug 23, 2019 11:00
--- NOTE | 2019-08-23 10:31 | PDOC ---
PROGRESS NOTES Subjective Subjective doing ok Objective Objective Vital Signs Date Time Temp Pulse Resp B/P (MAP) Pulse Ox O2 Delivery O2 Flow Rate FiO2 08/23/19 10:03 16 Room Air 08/23/19 07:00 98.2 77 129/72 (91) 95 98.2 08/22/19 17:21 2.0 Intake and Output 08/23/19 06:59 Intake Total 1980 ml Balance 1980 ml Intake Oral 1980 ml # Voids 6 Physical Exam Physical Exam dressings intact Assessment Assessment Problems Medical Problems: (1) Abscess of groin, left Status: Acute (2) Abscess of groin, right Status: Acute Plan Plan of Care dressing change today Comment Review of Relevant I have reviewed the following items liliana (where applicable) has been applied. Labs Laboratory Tests Test 08/21/19 14:45 08/21/19 16:49 08/21/19 18:15 08/21/19 20:14 White Blood Count 9.4 x10^3/uL (4.0-11.0) Red Blood Count 5.37 x10^6/uL (4.30-5.70) Hemoglobin 15.2 g/dL (13.0-17.5) Hematocrit 45.5 % (39.0-53.0) Mean Corpuscular Volume 85 fL (79-100) Mean Corpuscular Hemoglobin 28 pg (25-35) Mean Corpuscular Hemoglobin Concent 34 g/dL (31-37) Red Cell Distribution Width 13.8 % (11.5-14.5) Platelet Count 300 x10^3/uL (140-400) Neutrophils (%) (Auto) 78 % (31-73) Lymphocytes (%) (Auto) 10 % (24-48) Monocytes (%) (Auto) 8 % (0-9) Eosinophils (%) (Auto) 2 % (0-3) Basophils (%) (Auto) 1 % (0-3) Neutrophils # (Auto) 7.3 x10^3/uL (1.8-7.7) Lymphocytes # (Auto) 1.0 x10^3/uL (1.0-4.8) Monocytes # (Auto) 0.8 x10^3/uL (0.0-1.1) Eosinophils # (Auto) 0.2 x10^3/uL (0.0-0.7) Basophils # (Auto) 0.1 x10^3/uL (0.0-0.2) Erythrocyte Sedimentation Rate 30 (0-15) Sodium Level 134 mmol/L (136-145) Potassium Level 4.1 mmol/L (3.5-5.1) Chloride Level 99 mmol/L (98-107) Carbon Dioxide Level 24 mmol/L (21-32) Anion Gap 11 (6-14) Blood Urea Nitrogen 14 mg/dL (8-26) Creatinine 1.0 mg/dL (0.7-1.3) Estimated GFR (Cockcroft-Gault) 95.7 BUN/Creatinine Ratio 14 (6-20) Glucose Level 339 mg/dL (70-99) Lactic Acid Level 1.5 mmol/L (0.4-2.0) 1.0 mmol/L (0.4-2.0) Calcium Level 9.4 mg/dL (8.5-10.1) Total Bilirubin 0.4 mg/dL (0.2-1.0) Aspartate Amino Transf (AST/SGOT) 11 U/L (15-37) Alanine Aminotransferase (ALT/SGPT) 12 U/L (16-63) Alkaline Phosphatase 128 U/L (46-116) C-Reactive Protein, Quantitative 69.0 mg/L (0-3.3) Total Protein 8.1 g/dL (6.4-8.2) Albumin 3.3 g/dL (3.4-5.0) Albumin/Globulin Ratio 0.7 (1.0-1.7) Procalcitonin 0.10 ng/mL (0.00-0.10) Glucose (Fingerstick) 254 mg/dL (70-99) 407 mg/dL (70-99) Test 08/22/19 07:05 08/22/19 07:19 08/22/19 11:30 08/22/19 11:40 White Blood Count 11.0 x10^3/uL (4.0-11.0) Red Blood Count 5.11 x10^6/uL (4.30-5.70) Hemoglobin 14.3 g/dL (13.0-17.5) Hematocrit 43.9 % (39.0-53.0) Mean Corpuscular Volume 86 fL (79-100) Mean Corpuscular Hemoglobin 28 pg (25-35) Mean Corpuscular Hemoglobin Concent 33 g/dL (31-37) Red Cell Distribution Width 13.5 % (11.5-14.5) Platelet Count 278 x10^3/uL (140-400) Neutrophils (%) (Auto) 75 % (31-73) Lymphocytes (%) (Auto) 12 % (24-48) Monocytes (%) (Auto) 10 % (0-9) Eosinophils (%) (Auto) 3 % (0-3) Basophils (%) (Auto) 1 % (0-3) Neutrophils # (Auto) 8.2 x10^3/uL (1.8-7.7) Lymphocytes # (Auto) 1.3 x10^3/uL (1.0-4.8) Monocytes # (Auto) 1.1 x10^3/uL (0.0-1.1) Eosinophils # (Auto) 0.3 x10^3/uL (0.0-0.7) Basophils # (Auto) 0.1 x10^3/uL (0.0-0.2) Sodium Level 137 mmol/L (136-145) Potassium Level 4.0 mmol/L (3.5-5.1) Chloride Level 103 mmol/L (98-107) Carbon Dioxide Level 25 mmol/L (21-32) Anion Gap 9 (6-14) Blood Urea Nitrogen 12 mg/dL (8-26) Creatinine 0.8 mg/dL (0.7-1.3) Estimated GFR (Cockcroft-Gault) 123.8 BUN/Creatinine Ratio 15 (6-20) Glucose Level 215 mg/dL (70-99) Hemoglobin A1c 13.5 % (4.8-5.6) Calcium Level 9.2 mg/dL (8.5-10.1) Total Bilirubin 0.3 mg/dL (0.2-1.0) Aspartate Amino Transf (AST/SGOT) 12 U/L (15-37) Alanine Aminotransferase (ALT/SGPT) 12 U/L (16-63) Alkaline Phosphatase 107 U/L (46-116) Total Protein 7.3 g/dL (6.4-8.2) Albumin 2.7 g/dL (3.4-5.0) Albumin/Globulin Ratio 0.6 (1.0-1.7) Glucose (Fingerstick) 225 mg/dL (70-99) 125 mg/dL (70-99) Lactic Acid Level 0.6 mmol/L (0.4-2.0) Test 08/22/19 15:00 08/22/19 18:37 08/22/19 20:36 08/23/19 03:30 Glucose (Fingerstick) 161 mg/dL (70-99) 186 mg/dL (70-99) 277 mg/dL (70-99) White Blood Count 13.1 x10^3/uL (4.0-11.0) Red Blood Count 4.73 x10^6/uL (4.30-5.70) Hemoglobin 13.3 g/dL (13.0-17.5) Hematocrit 40.3 % (39.0-53.0) Mean Corpuscular Volume 85 fL (79-100) Mean Corpuscular Hemoglobin 28 pg (25-35) Mean Corpuscular Hemoglobin Concent 33 g/dL (31-37) Red Cell Distribution Width 13.5 % (11.5-14.5) Platelet Count 292 x10^3/uL (140-400) Neutrophils (%) (Auto) 82 % (31-73) Lymphocytes (%) (Auto) 9 % (24-48) Monocytes (%) (Auto) 8 % (0-9) Eosinophils (%) (Auto) 0 % (0-3) Basophils (%) (Auto) 0 % (0-3) Neutrophils # (Auto) 10.8 x10^3/uL (1.8-7.7) Lymphocytes # (Auto) 1.2 x10^3/uL (1.0-4.8) Monocytes # (Auto) 1.0 x10^3/uL (0.0-1.1) Eosinophils # (Auto) 0.0 x10^3/uL (0.0-0.7) Basophils # (Auto) 0.1 x10^3/uL (0.0-0.2) Sodium Level 136 mmol/L (136-145) Potassium Level 4.3 mmol/L (3.5-5.1) Chloride Level 100 mmol/L (98-107) Carbon Dioxide Level 27 mmol/L (21-32) Anion Gap 9 (6-14) Blood Urea Nitrogen 15 mg/dL (8-26) Creatinine 1.1 mg/dL (0.7-1.3) Estimated GFR (Cockcroft-Gault) 85.7 BUN/Creatinine Ratio 14 (6-20) Glucose Level 293 mg/dL (70-99) Calcium Level 9.1 mg/dL (8.5-10.1) Total Bilirubin 0.3 mg/dL (0.2-1.0) Aspartate Amino Transf (AST/SGOT) 13 U/L (15-37) Alanine Aminotransferase (ALT/SGPT) 10 U/L (16-63) Alkaline Phosphatase 104 U/L (46-116) Total Protein 6.4 g/dL (6.4-8.2) Albumin 2.6 g/dL (3.4-5.0) Albumin/Globulin Ratio 0.7 (1.0-1.7) Vancomycin Level Trough 9.1 mcg/mL (10.0-20.0) Vancomycin Last Dose Date Vancomycin Last Dose Time 1530 Test 08/23/19 07:42 Glucose (Fingerstick) 233 mg/dL (70-99) Laboratory Tests Test 08/22/19 11:30 08/22/19 11:40 08/22/19 15:00 08/22/19 18:37 Lactic Acid Level 0.6 mmol/L (0.4-2.0) Glucose (Fingerstick) 125 mg/dL (70-99) 161 mg/dL (70-99) 186 mg/dL (70-99) Test 08/22/19 20:36 08/23/19 03:30 08/23/19 07:42 Glucose (Fingerstick) 277 mg/dL (70-99) 233 mg/dL (70-99) White Blood Count 13.1 x10^3/uL (4.0-11.0) Red Blood Count 4.73 x10^6/uL (4.30-5.70) Hemoglobin 13.3 g/dL (13.0-17.5) Hematocrit 40.3 % (39.0-53.0) Mean Corpuscular Volume 85 fL (79-100) Mean Corpuscular Hemoglobin 28 pg (25-35) Mean Corpuscular Hemoglobin Concent 33 g/dL (31-37) Red Cell Distribution Width 13.5 % (11.5-14.5) Platelet Count 292 x10^3/uL (140-400) Neutrophils (%) (Auto) 82 % (31-73) Lymphocytes (%) (Auto) 9 % (24-48) Monocytes (%) (Auto) 8 % (0-9) Eosinophils (%) (Auto) 0 % (0-3) Basophils (%) (Auto) 0 % (0-3) Neutrophils # (Auto) 10.8 x10^3/uL (1.8-7.7) Lymphocytes # (Auto) 1.2 x10^3/uL (1.0-4.8) Monocytes # (Auto) 1.0 x10^3/uL (0.0-1.1) Eosinophils # (Auto) 0.0 x10^3/uL (0.0-0.7) Basophils # (Auto) 0.1 x10^3/uL (0.0-0.2) Sodium Level 136 mmol/L (136-145) Potassium Level 4.3 mmol/L (3.5-5.1) Chloride Level 100 mmol/L (98-107) Carbon Dioxide Level 27 mmol/L (21-32) Anion Gap 9 (6-14) Blood Urea Nitrogen 15 mg/dL (8-26) Creatinine 1.1 mg/dL (0.7-1.3) Estimated GFR (Cockcroft-Gault) 85.7 BUN/Creatinine Ratio 14 (6-20) Glucose Level 293 mg/dL (70-99) Calcium Level 9.1 mg/dL (8.5-10.1) Total Bilirubin 0.3 mg/dL (0.2-1.0) Aspartate Amino Transf (AST/SGOT) 13 U/L (15-37) Alanine Aminotransferase (ALT/SGPT) 10 U/L (16-63) Alkaline Phosphatase 104 U/L (46-116) Total Protein 6.4 g/dL (6.4-8.2) Albumin 2.6 g/dL (3.4-5.0) Albumin/Globulin Ratio 0.7 (1.0-1.7) Vancomycin Level Trough 9.1 mcg/mL (10.0-20.0) Vancomycin Last Dose Date Vancomycin Last Dose Time 1530 Microbiology 08/21/19 Blood Culture - Preliminary, Resulted NO GROWTH AFTER 1 DAY Medications Current Medications Piperacillin Sod/ Tazobactam Sod 4.5 gm/Sodium Chloride 100 ml @ 200 mls/hr 1X ONCE IV Last administered on 08/21/19at 14:50; Start 08/21/19 at 14:30; Stop 08/21/19 at 14:59; Status DC Vancomycin HCl (Vanco Per Pharmacy) 1 each 1X ONCE MC Last administered on 08/21/19at 16:19; Start 08/21/19 at 14:15; Stop 08/21/19 at 15:30; Status DC Sodium Chloride 1,000 ml @ 2,000 mls/hr Q30M IV ; Start 08/21/19 at 14:10; Stop 08/21/19 at 15:18; Status DC Morphine Sulfate (Morphine Sulfate) 4 mg PRN Q15MIN PRN IV/SQ PAIN GREATER THAN 3/10; Start 08/21/19 at 14:15; Stop 08/22/19 at 14:14; Status DC Vancomycin HCl 2 gm/Sodium Chloride 500 ml @ 250 mls/hr 1X ONCE IV Last administered on 08/21/19at 15:29; Start 08/21/19 at 14:45; Stop 08/21/19 at 16:44; Status DC Iohexol (Omnipaque 300 Mg/ml) 75 ml 1X ONCE IV Last administered on 08/21/19at 15:52; Start 08/21/19 at 15:30; Stop 08/21/19 at 15:31; Status DC Info (CONTRAST GIVEN -- Rx MONITORING) 1 each PRN DAILY PRN MC SEE COMMENTS; Start 08/21/19 at 15:30; Stop 08/23/19 at 15:29 Vancomycin HCl 1.25 gm/Sodium Chloride 250 ml @ 167 mls/hr Q12H IV Last administered on 08/22/19at 17:42; Start 08/22/19 at 03:30; Stop 08/23/19 at 04:29; Status DC Vancomycin HCl (Vancomycin Trough Level) 1 each 1X ONCE MC Last administered on 08/23/19at 05:10; Start 08/23/19 at 03:00; Stop 08/23/19 at 03:01; Status DC Ondansetron HCl (Zofran) 4 mg PRN Q8HRS PRN IV NAUSEA/VOMITING; Start 08/21/19 at 16:15; Stop 08/22/19 at 16:14; Status DC Morphine Sulfate (Morphine Sulfate) 4 mg PRN Q2HR PRN IV PAIN Last administered on 08/22/19at 11:40; Start 08/21/19 at 16:15; Stop 08/22/19 at 16:14; Status DC Acetaminophen (Tylenol) 650 mg PRN Q4HRS PRN PO FEVER; Start 08/21/19 at 16:15; Stop 08/22/19 at 16:14; Status DC Insulin Human Lispro (HumaLOG) 0-9 UNITS TIDWMEALS SQ Last administered on 08/23/19at 07:59; Start 08/21/19 at 17:00 Dextrose (Dextrose 50%-Water Syringe) 12.5 gm PRN Q15MIN PRN IV SEE COMMENTS; Start 08/21/19 at 16:30 Dextrose 250 ml PRN Q15MIN PRN IV SEE COMMENTS; Start 08/21/19 at 16:30 Oxycodone/ Acetaminophen (Percocet 5/325) 1 tab PRN Q4HRS PRN PO PAIN Last administered on 08/23/19at 07:59; Start 08/21/19 at 17:45 Amlodipine Besylate (Norvasc) 2.5 mg DAILY PO Last administered on 08/21/19at 17:43; Start 08/21/19 at 17:45; Stop 08/21/19 at 18:10; Status DC Insulin Human Lispro (HumaLOG) 8 units 1X ONCE SQ Last administered on 08/21/19at 21:01; Start 08/21/19 at 21:00; Stop 08/21/19 at 21:01; Status DC Insulin Glargine (Lantus Syringe) 10 unit 1X ONCE SQ Last administered on 08/21/19at 21:02; Start 08/21/19 at 21:00; Stop 08/21/19 at 21:01; Status DC Ondansetron HCl (Zofran) 4 mg PRN Q6HRS PRN IV NAUSEA/VOMITING; Start 08/22/19 at 10:00; Stop 08/22/19 at 20:00; Status DC Fentanyl Citrate (Fentanyl 2ml Vial) 25 mcg PRN Q5MIN PRN IV MILD PAIN 1-3; Start 08/22/19 at 10:00; Stop 08/22/19 at 20:00; Status DC Fentanyl Citrate (Fentanyl 2ml Vial) 50 mcg PRN Q5MIN PRN IV MODERATE TO SEVERE PAIN Last administered on 08/22/19at 16:32; Start 08/22/19 at 10:00; Stop 08/22/19 at 20:00; Status DC Morphine Sulfate (Morphine Sulfate) 1 mg PRN Q10MIN PRN IV SEVERE PAIN 7-10; Start 08/22/19 at 10:00; Stop 08/22/19 at 20:00; Status DC Ringer's Solution 1,000 ml @ 30 mls/hr Q24H IV ; Start 08/22/19 at 10:00; Stop 08/22/19 at 21:59; Status DC Hydromorphone HCl (Dilaudid) 0.5 mg PRN Q10MIN PRN IV SEV PAIN, Second choice Last administered on 08/22/19at 17:21; Start 08/22/19 at 10:00; Stop 08/22/19 at 20:00; Status DC Prochlorperazine Edisylate (Compazine) 5 mg PACU PRN PRN IV NAUSEA, MRX1; Start 08/22/19 at 10:00; Stop 08/22/19 at 20:00; Status DC Heparin Sodium (Porcine) (Heparin Sodium) 5,000 unit Q8HRS SQ Last administered on 08/23/19at 06:43; Start 08/22/19 at 11:00 Piperacillin Sod/ Tazobactam Sod 3.375 gm/Sodium Chloride 50 ml @ 100 mls/hr Q6HRS IV Last administered on 08/23/19at 06:43; Start 08/22/19 at 11:00 Vancomycin HCl (Vanco Per Pharmacy) 1 each PRN DAILY PRN MC SEE COMMENTS Last administered on 08/23/19at 05:43; Start 08/22/19 at 11:30 Lactobacillus Rhamnosus (Culturelle) 1 cap BID PO Last administered on 08/23/19at 09:27; Start 08/22/19 at 21:00 Ondansetron HCl (Zofran) 4 mg STK-MED ONCE .ROUTE ; Start 08/22/19 at 14:11; Stop 08/22/19 at 14:11; Status DC Propofol 20 ml @ As Directed STK-MED ONCE IV ; Start 08/22/19 at 14:11; Stop 08/22/19 at 14:11; Status DC Lidocaine HCl (Lidocaine Pf 2% Vial) 5 ml STK-MED ONCE .ROUTE ; Start 08/22/19 at 14:11; Stop 08/22/19 at 14:11; Status DC Dexamethasone Sodium Phosphate (Decadron) 4 mg STK-MED ONCE .ROUTE ; Start 08/22/19 at 14:11; Stop 08/22/19 at 14:11; Status DC Fentanyl Citrate (Fentanyl 2ml Vial) 100 mcg STK-MED ONCE .ROUTE ; Start 08/22/19 at 14:11; Stop 08/22/19 at 14:11; Status DC Insulin Human Lispro (HumaLOG VIAL for OP,RR ONLY) 0-10 units PRN Q1HR PRN SQ PER PROTOCOL Last administered on 08/22/19at 16:00; Start 08/22/19 at 15:15; Stop 08/23/19 at 15:14 Sevoflurane (Ultane) 30 ml STK-MED ONCE IH ; Start 08/22/19 at 15:38; Stop 08/22/19 at 15:38; Status DC Fentanyl Citrate (Fentanyl 2ml Vial) 100 mcg STK-MED ONCE .ROUTE ; Start 08/22/19 at 16:08; Stop 08/22/19 at 16:08; Status DC Hydromorphone HCl (Dilaudid) 2 mg STK-MED ONCE .ROUTE ; Start 08/22/19 at 16:29; Stop 08/22/19 at 16:29; Status DC Diphenhydramine HCl (Benadryl) 50 mg STK-MED ONCE .ROUTE ; Start 08/22/19 at 16:38; Stop 08/22/19 at 16:38; Status DC Diphenhydramine HCl (Benadryl) 25 mg 1X ONCE IVP Last administered on 08/22/19at 16:45; Start 08/22/19 at 16:45; Stop 08/22/19 at 16:46; Status DC Vancomycin HCl 1.25 gm/Sodium Chloride 250 ml @ 167 mls/hr Q8H IV Last administered on 08/23/19at 05:03; Start 08/23/19 at 04:30 Vancomycin HCl (Vancomycin Trough Level) 1 each 1X ONCE MC ; Start 08/24/19 at 04:30; Stop 08/24/19 at 04:31 Oxycodone/ Acetaminophen (Percocet 10/325) 1 tab PRN Q4HRS PRN PO MODERATE TO SEVERE PAIN; Start 08/23/19 at 09:15 Active Scripts Active Reported No Known Medications Prior To Admisstion (Info) Each 1 Each MC 1X Vitals/I & O Vital Sign - Last 24 Hours 08/22/19 08/22/19 08/22/19 08/22/19 11:00 11:40 12:30 15:02 Temp 97.9 98.3 97.9 98.3 Pulse 83 90 Resp 18 16 16 16 B/P (MAP) 126/72 (90) 153/91 Pulse Ox 94 96 O2 Delivery Room Air Room Air Room Air Room Air 08/22/19 08/22/19 08/22/19 08/22/19 16:02 16:17 16:32 16:32 Temp 98.1 98.1 Pulse 85 77 78 Resp 16 16 16 16 B/P (MAP) 135/93 136/85 144/94 Pulse Ox 99 98 100 O2 Delivery Simple Mask Nasal Cannula Nasal Cannula Room Air O2 Flow Rate 10 2 2 08/22/19 08/22/19 08/22/19 08/22/19 16:45 16:47 17:02 17:21 Pulse 77 75 Resp 2 16 14 2 B/P (MAP) 127/86 126/77 Pulse Ox 100 100 100 O2 Delivery Nasal Cannula Nasal Cannula Nasal Cannula Nasal Cannula O2 Flow Rate 2 2 2.0 08/22/19 08/22/19 08/22/19 08/22/19 17:35 17:52 18:30 19:00 Temp 98.6 98.1 98.6 98.1 Pulse 78 87 88 Resp 18 16 18 B/P (MAP) 126/89 (101) 127/88 (101) 132/99 (110) Pulse Ox 95 95 100 O2 Delivery Room Air Room Air Room Air Room Air 08/22/19 08/22/19 08/22/19 08/22/19 19:43 19:50 21:44 22:40 Pulse 87 Resp 18 20 20 B/P (MAP) 112/79 (90) Pulse Ox 97 O2 Delivery Room Air Room Air Room Air Room Air 08/22/19 08/23/19 08/23/19 08/23/19 22:59 01:58 03:00 03:49 Temp 98.1 98.1 98.1 98.1 Pulse 82 83 Resp 18 20 20 20 B/P (MAP) 113/76 (88) 116/84 (95) Pulse Ox 94 97 O2 Delivery Room Air Room Air 08/23/19 08/23/19 08/23/19 08/23/19 07:00 07:40 07:59 10:03 Temp 98.2 98.2 Pulse 77 Resp 16 18 16 B/P (MAP) 129/72 (91) Pulse Ox 95 O2 Delivery Room Air Room Air Room Air Room Air Intake and Output 0 08/22/19 08/22/19 08/23/19 14:59 22:59 06:59 Intake Total 480 ml 1500 ml Balance 480 ml 1500 ml MERLINE WILLIS MD Aug 23, 2019 10:31
[2019-08-23 11:00] VITALS: BP 157/92
[2019-08-23] MEDS ORDERED: fentaNYL PF VIAL 100 MCG/2 ML VIAL IM ONE (11:30)
[2019-08-23] MEDS: oxyCODONE/APAP 10/325 1 TAB TABLET PO PRN ×3 (11:41→20:44)
[2019-08-23] MEDS ORDERED: HYDROmorphone 2 MG/ML VIAL IV ONE (12:30)
[2019-08-23 15:00] VITALS: BP 117/76
[2019-08-23] MEDS: diphenhydrAMINE HCL 25 MG CAPSULE PO PRN (15:11)
[2019-08-23] MEDS ORDERED: NICOTINE 14MG PATCH. TD PRN (15:15)
[2019-08-23] MEDS ORDERED: HYDROmorphone 2 MG/ML VIAL IVP PRN (15:15)
[2019-08-23 20:55] VITALS: BP 147/103
[2019-08-24] VITALS (7 sets, daily range): BP systolic 105–137; BP diastolic 59–100
[2019-08-24] MEDS: PIPERACILLIN/TAZOBACTAM 3.375 GM in IV NORMAL SALINE 50ML 50 ML IV SCH ×5 (00:07→23:46)
[2019-08-24] MEDS: oxyCODONE/APAP 10/325 1 TAB TABLET PO PRN ×4 (00:50→21:15)
[2019-08-24 04:27] LABS: CREATININE 1.1 mg/dL (0.7-1.3); GFR 85.7; VANC TR 17.2 mcg/mL (10.0-20.0)
[2019-08-24] MEDS: VANCOMYCIN 1.25 GM in IV NORMAL SALINE 250ML 250 ML IV SCH ×3 (04:55→21:18)
[2019-08-24] MEDS: VANCOMYCIN PER PHARMACY MC PRN ×2 (04:55→14:26)
[2019-08-24] MEDS: HEPARIN for SUB-Q USE 5,000 UNIT/ML VIAL. SQ SCH ×3 (06:38→21:16)
[2019-08-24] MEDS: LACTOBACILLUS RHAMNOSUS GG 1 CAPSULE. PO SCH ×2 (08:27→21:15)
[2019-08-24] MEDS: INSULIN LISPRO 300 UNITS/3 ML VIAL. SQ SCH ×4 (08:31→21:17)
--- NOTE | 2019-08-24 08:40 | PDOC ---
SURGICAL PROGRESS NOTE Subjective pain continues pain was severe with dressing change yesterday Vital Signs Vital Signs Date Time Temp Pulse Resp B/P (MAP) Pulse Ox O2 Delivery O2 Flow Rate FiO2 08/24/19 07:35 Room Air 08/24/19 07:00 98.2 72 18 132/74 (93) 92 2.0 98.2 I&O Intake and Output 08/24/19 07:00 Intake Total 480 ml Balance 480 ml Intake Oral 480 ml # Voids 7 # Bowel Movements 1 General: Alert, Cooperative Skin: Other (wounds packed) Labs Laboratory Tests Test 08/22/19 11:30 08/22/19 11:40 08/22/19 15:00 08/22/19 18:37 Lactic Acid Level 0.6 mmol/L (0.4-2.0) Glucose (Fingerstick) 125 mg/dL (70-99) 161 mg/dL (70-99) 186 mg/dL (70-99) Test 08/22/19 20:36 08/23/19 03:30 08/23/19 07:42 08/23/19 12:03 Glucose (Fingerstick) 277 mg/dL (70-99) 233 mg/dL (70-99) 279 mg/dL (70-99) White Blood Count 13.1 x10^3/uL (4.0-11.0) Red Blood Count 4.73 x10^6/uL (4.30-5.70) Hemoglobin 13.3 g/dL (13.0-17.5) Hematocrit 40.3 % (39.0-53.0) Mean Corpuscular Volume 85 fL (79-100) Mean Corpuscular Hemoglobin 28 pg (25-35) Mean Corpuscular Hemoglobin Concent 33 g/dL (31-37) Red Cell Distribution Width 13.5 % (11.5-14.5) Platelet Count 292 x10^3/uL (140-400) Neutrophils (%) (Auto) 82 % (31-73) Lymphocytes (%) (Auto) 9 % (24-48) Monocytes (%) (Auto) 8 % (0-9) Eosinophils (%) (Auto) 0 % (0-3) Basophils (%) (Auto) 0 % (0-3) Neutrophils # (Auto) 10.8 x10^3/uL (1.8-7.7) Lymphocytes # (Auto) 1.2 x10^3/uL (1.0-4.8) Monocytes # (Auto) 1.0 x10^3/uL (0.0-1.1) Eosinophils # (Auto) 0.0 x10^3/uL (0.0-0.7) Basophils # (Auto) 0.1 x10^3/uL (0.0-0.2) Sodium Level 136 mmol/L (136-145) Potassium Level 4.3 mmol/L (3.5-5.1) Chloride Level 100 mmol/L (98-107) Carbon Dioxide Level 27 mmol/L (21-32) Anion Gap 9 (6-14) Blood Urea Nitrogen 15 mg/dL (8-26) Creatinine 1.1 mg/dL (0.7-1.3) Estimated GFR (Cockcroft-Gault) 85.7 BUN/Creatinine Ratio 14 (6-20) Glucose Level 293 mg/dL (70-99) Calcium Level 9.1 mg/dL (8.5-10.1) Total Bilirubin 0.3 mg/dL (0.2-1.0) Aspartate Amino Transf (AST/SGOT) 13 U/L (15-37) Alanine Aminotransferase (ALT/SGPT) 10 U/L (16-63) Alkaline Phosphatase 104 U/L (46-116) Total Protein 6.4 g/dL (6.4-8.2) Albumin 2.6 g/dL (3.4-5.0) Albumin/Globulin Ratio 0.7 (1.0-1.7) Vancomycin Level Trough 9.1 mcg/mL (10.0-20.0) Vancomycin Last Dose Date Vancomycin Last Dose Time 1530 Test 08/23/19 17:17 08/23/19 20:56 08/24/19 03:40 08/24/19 07:55 Glucose (Fingerstick) 268 mg/dL (70-99) 235 mg/dL (70-99) 245 mg/dL (70-99) Blood Urea Nitrogen 11 mg/dL (8-26) Creatinine 1.1 mg/dL (0.7-1.3) Estimated GFR (Cockcroft-Gault) 85.7 Vancomycin Level Trough 17.2 mcg/mL (10.0-20.0) Vancomycin Last Dose Date Vancomycin Last Dose Time 2029 Laboratory Tests Test 08/23/19 12:03 08/23/19 17:17 08/23/19 20:56 08/24/19 03:40 Glucose (Fingerstick) 279 mg/dL (70-99) 268 mg/dL (70-99) 235 mg/dL (70-99) Blood Urea Nitrogen 11 mg/dL (8-26) Creatinine 1.1 mg/dL (0.7-1.3) Estimated GFR (Cockcroft-Gault) 85.7 Vancomycin Level Trough 17.2 mcg/mL (10.0-20.0) Vancomycin Last Dose Date Vancomycin Last Dose Time 2029 Test 08/24/19 07:55 Glucose (Fingerstick) 245 mg/dL (70-99) Problem List Problems Medical Problems: (1) Abscess of groin, left Status: Acute (2) Abscess of groin, right Status: Acute (3) Cellulitis Status: Acute (4) DM2 (diabetes mellitus, type 2) Status: Chronic (5) Sepsis Status: Acute Assessment/Plan will have wound care eval abrahan planning for wound care when ready for discharge SUNNI LEE APRN Aug 24, 2019 08:40
--- NOTE | 2019-08-24 09:23 | PDOC ---
Infectious Disease Note Subjective Subjective s/p surgery, I and D c/o pain Denies F/C/S/N/V/D Vital Sign Vital Signs Vital Signs Date Time Temp Pulse Resp B/P (MAP) Pulse Ox O2 Delivery O2 Flow Rate FiO2 08/24/19 08:39 Room Air 08/24/19 07:00 98.2 72 18 132/74 (93) 92 2.0 98.2 Physical Exam PHYSICAL EXAM GENERAL: Lying down, alert, appears comfortable HEENT: Pupils equally round. Oropharynx clear. NECK: Supple. LUNGS: Clear to auscultation. HEART: S1, S2. ABDOMEN: Soft, nontender with bowel sounds present. EXTREMITIES: No gross edema or cyanosis. SKIN: left Lilibeth-rectal, scrotal and right groin post-op dressings in place NEUROLOGIC: Answers questions appropriately. Labs Lab Laboratory Tests Test 08/23/19 12:03 08/23/19 17:17 08/23/19 20:56 08/24/19 03:40 Glucose (Fingerstick) 279 mg/dL (70-99) 268 mg/dL (70-99) 235 mg/dL (70-99) Blood Urea Nitrogen 11 mg/dL (8-26) Creatinine 1.1 mg/dL (0.7-1.3) Estimated GFR (Cockcroft-Gault) 85.7 Vancomycin Level Trough 17.2 mcg/mL (10.0-20.0) Vancomycin Last Dose Date Vancomycin Last Dose Time 2029 Test 08/24/19 07:55 Glucose (Fingerstick) 245 mg/dL (70-99) Micro Microbiology 08/21/19 Blood Culture - Preliminary, Resulted NO GROWTH AFTER 2 DAYS Objective Assessment Multiple abscesses involving left buttocks, perineal/groin areas s/p I and D, 08/22 Diabetes Hypertension Tobaccoism Leukocytosis multifactorial, reactive to steroids, surgery and infection Plan Plan of Care vanc and Zosyn Probiotics Monitor renal function closely Trough 9.1 f/u cultures Glycemic control Smoking cessation Local wound care as directed D/w nursing NATHALY REMY MD Aug 24, 2019 09:23
--- NOTE | 2019-08-24 09:50 | PDOC ---
PROGRESS NOTES History of Present Illness History of Present Illness VTE Prophylaxis Ordered VTE Prophylaxis Devices: No VTE Pharmacological Prophylaxi: No Assessment/Plan Assessment/Plan cellulits sepsis groin abcess, Several complex, heterogeneously hypoechoic collections with predominately peripheral vascularity seen at the perineum, base of the scrotum, as well as along the left aspect of the gluteal fold most compatible with phlegmonous change/early abscess formation. The degree of internal complexity of these collections may render them difficult to drainage. Prominent heterogeneous collection with intermediate density internal contents and peripheral enhancement along the left aspect of the gluteal cleft measuring approximately 4.4 x 2.8 x 5.0 cm. This collection and surrounding soft tissue inflammatory changes extend to the posterior wall of the anorectal region without clear communication on this study ON CT 08/21 No findings to suggest epididymoorchitis. SEVERE PROTEIN-CALORIC MALNUTRITION consult gen surg. imaging showed 3 abcesses, buttock, groin htn, reactive dm2 BLOOD CULT ID CONSULT IV VANC, ZOSYN DVT PROPHYLAXIS A1C Operative Note Operative Note Operative Note Operative Note: Preoperative Diagnosis: Left perirectal, right groin abscesses Postoperative Diagnosis: Same Procedure: Incision and drainage of left perirectal abscess, incision and drainage of right groin abscesses Surgeon: Raffi Anesthesia: Gen. EBL: 10 mL Specimen: Cultures to micrology Drains: None Complications: None Indication: The patient is a 49-year-old male who is in newly diagnosed diabetic. He presented a hospital with groin and perirectal pain. Evaluation confirms a sizable left perirectal abscess as well as a right inferior groin abscess. 27 MIN PT EXAM, CHART REVIEW, > 50% OF TIME SPENT WITH EXAM, CHART REVIEW, PT CARE COORDINATION Vitals Vitals Vital Signs Date Time Temp Pulse Resp B/P (MAP) Pulse Ox O2 Delivery O2 Flow Rate FiO2 08/24/19 08:39 Room Air 08/24/19 07:00 98.2 72 18 132/74 (93) 92 2.0 98.2 Physical Exam Physical Exam GENERAL: Lying down, alert, appears comfortable HEENT: Pupils equally round. Oropharynx clear. NECK: Supple. LUNGS: Clear to auscultation. HEART: S1, S2. ABDOMEN: Soft, nontender with bowel sounds present. EXTREMITIES: No gross edema or cyanosis. SKIN: left Lilibeth-rectal, scrotal and right groin post-op dressings in place NEUROLOGIC: Answers questions appropriately. General: Alert, Oriented X3, Cooperative, mild distress Heart: Regular rate, Normal S1, Normal S2 Lungs: Clear Abdomen: Soft, No tenderness, No hepatosplenomegaly Extremities: No clubbing, No cyanosis, No edema Skin: Other (wounds packed) Labs LABS Laboratory Tests Test 08/23/19 12:03 08/23/19 17:17 08/23/19 20:56 08/24/19 03:40 Glucose (Fingerstick) 279 mg/dL (70-99) 268 mg/dL (70-99) 235 mg/dL (70-99) Blood Urea Nitrogen 11 mg/dL (8-26) Creatinine 1.1 mg/dL (0.7-1.3) Estimated GFR (Cockcroft-Gault) 85.7 Vancomycin Level Trough 17.2 mcg/mL (10.0-20.0) Vancomycin Last Dose Date Vancomycin Last Dose Time 2029 Test 08/24/19 07:55 Glucose (Fingerstick) 245 mg/dL (70-99) Assessment and Plan Assessmemt and Plan Problems Medical Problems: (1) Abscess of groin, left Status: Acute (2) Abscess of groin, right Status: Acute (3) Cellulitis Status: Acute (4) DM2 (diabetes mellitus, type 2) Status: Chronic (5) Sepsis Status: Acute Comment Review of Relevant I have reviewed the following items liliana (where applicable) has been applied. Labs Laboratory Tests Test 08/22/19 11:30 08/22/19 11:40 08/22/19 15:00 08/22/19 18:37 Lactic Acid Level 0.6 mmol/L (0.4-2.0) Glucose (Fingerstick) 125 mg/dL (70-99) 161 mg/dL (70-99) 186 mg/dL (70-99) Test 08/22/19 20:36 08/23/19 03:30 08/23/19 07:42 08/23/19 12:03 Glucose (Fingerstick) 277 mg/dL (70-99) 233 mg/dL (70-99) 279 mg/dL (70-99) White Blood Count 13.1 x10^3/uL (4.0-11.0) Red Blood Count 4.73 x10^6/uL (4.30-5.70) Hemoglobin 13.3 g/dL (13.0-17.5) Hematocrit 40.3 % (39.0-53.0) Mean Corpuscular Volume 85 fL (79-100) Mean Corpuscular Hemoglobin 28 pg (25-35) Mean Corpuscular Hemoglobin Concent 33 g/dL (31-37) Red Cell Distribution Width 13.5 % (11.5-14.5) Platelet Count 292 x10^3/uL (140-400) Neutrophils (%) (Auto) 82 % (31-73) Lymphocytes (%) (Auto) 9 % (24-48) Monocytes (%) (Auto) 8 % (0-9) Eosinophils (%) (Auto) 0 % (0-3) Basophils (%) (Auto) 0 % (0-3) Neutrophils # (Auto) 10.8 x10^3/uL (1.8-7.7) Lymphocytes # (Auto) 1.2 x10^3/uL (1.0-4.8) Monocytes # (Auto) 1.0 x10^3/uL (0.0-1.1) Eosinophils # (Auto) 0.0 x10^3/uL (0.0-0.7) Basophils # (Auto) 0.1 x10^3/uL (0.0-0.2) Sodium Level 136 mmol/L (136-145) Potassium Level 4.3 mmol/L (3.5-5.1) Chloride Level 100 mmol/L (98-107) Carbon Dioxide Level 27 mmol/L (21-32) Anion Gap 9 (6-14) Blood Urea Nitrogen 15 mg/dL (8-26) Creatinine 1.1 mg/dL (0.7-1.3) Estimated GFR (Cockcroft-Gault) 85.7 BUN/Creatinine Ratio 14 (6-20) Glucose Level 293 mg/dL (70-99) Calcium Level 9.1 mg/dL (8.5-10.1) Total Bilirubin 0.3 mg/dL (0.2-1.0) Aspartate Amino Transf (AST/SGOT) 13 U/L (15-37) Alanine Aminotransferase (ALT/SGPT) 10 U/L (16-63) Alkaline Phosphatase 104 U/L (46-116) Total Protein 6.4 g/dL (6.4-8.2) Albumin 2.6 g/dL (3.4-5.0) Albumin/Globulin Ratio 0.7 (1.0-1.7) Vancomycin Level Trough 9.1 mcg/mL (10.0-20.0) Vancomycin Last Dose Date Vancomycin Last Dose Time 153 Test 08/23/19 17:17 08/23/19 20:56 08/24/19 03:40 08/24/19 07:55 Glucose (Fingerstick) 268 mg/dL (70-99) 235 mg/dL (70-99) 245 mg/dL (70-99) Blood Urea Nitrogen 11 mg/dL (8-26) Creatinine 1.1 mg/dL (0.7-1.3) Estimated GFR (Cockcroft-Gault) 85.7 Vancomycin Level Trough 17.2 mcg/mL (10.0-20.0) Vancomycin Last Dose Date Vancomycin Last Dose Time 2029 Laboratory Tests Test 08/23/19 12:03 08/23/19 17:17 08/23/19 20:56 08/24/19 03:40 Glucose (Fingerstick) 279 mg/dL (70-99) 268 mg/dL (70-99) 235 mg/dL (70-99) Blood Urea Nitrogen 11 mg/dL (8-26) Creatinine 1.1 mg/dL (0.7-1.3) Estimated GFR (Cockcroft-Gault) 85.7 Vancomycin Level Trough 17.2 mcg/mL (10.0-20.0) Vancomycin Last Dose Date Vancomycin Last Dose Time 2029 Test 08/24/19 07:55 Glucose (Fingerstick) 245 mg/dL (70-99) Microbiology 08/21/19 Blood Culture - Preliminary, Resulted NO GROWTH AFTER 2 DAYS Medications Current Medications Piperacillin Sod/ Tazobactam Sod 4.5 gm/Sodium Chloride 100 ml @ 200 mls/hr 1X ONCE IV Last administered on 08/21/19at 14:50; Start 08/21/19 at 14:30; Stop 08/21/19 at 14:59; Status DC Vancomycin HCl (Vanco Per Pharmacy) 1 each 1X ONCE MC Last administered on 08/21/19at 16:19; Start 08/21/19 at 14:15; Stop 08/21/19 at 15:30; Status DC Sodium Chloride 1,000 ml @ 2,000 mls/hr Q30M IV ; Start 08/21/19 at 14:10; Stop 08/21/19 at 15:18; Status DC Morphine Sulfate (Morphine Sulfate) 4 mg PRN Q15MIN PRN IV/SQ PAIN GREATER THAN 3/10; Start 08/21/19 at 14:15; Stop 08/22/19 at 14:14; Status DC Vancomycin HCl 2 gm/Sodium Chloride 500 ml @ 250 mls/hr 1X ONCE IV Last administered on 08/21/19at 15:29; Start 08/21/19 at 14:45; Stop 08/21/19 at 16:44; Status DC Iohexol (Omnipaque 300 Mg/ml) 75 ml 1X ONCE IV Last administered on 08/21/19at 15:52; Start 08/21/19 at 15:30; Stop 08/21/19 at 15:31; Status DC Info (CONTRAST GIVEN -- Rx MONITORING) 1 each PRN DAILY PRN MC SEE COMMENTS; Start 08/21/19 at 15:30; Stop 08/23/19 at 15:29; Status DC Vancomycin HCl 1.25 gm/Sodium Chloride 250 ml @ 167 mls/hr Q12H IV Last administered on 08/22/19at 17:42; Start 08/22/19 at 03:30; Stop 08/23/19 at 04:29; Status DC Vancomycin HCl (Vancomycin Trough Level) 1 each 1X ONCE MC Last administered on 08/23/19at 05:10; Start 08/23/19 at 03:00; Stop 08/23/19 at 03:01; Status DC Ondansetron HCl (Zofran) 4 mg PRN Q8HRS PRN IV NAUSEA/VOMITING; Start 08/21/19 at 16:15; Stop 08/22/19 at 16:14; Status DC Morphine Sulfate (Morphine Sulfate) 4 mg PRN Q2HR PRN IV PAIN Last administered on 08/22/19at 11:40; Start 08/21/19 at 16:15; Stop 08/22/19 at 16:14; Status DC Acetaminophen (Tylenol) 650 mg PRN Q4HRS PRN PO FEVER; Start 08/21/19 at 16:15; Stop 08/22/19 at 16:14; Status DC Insulin Human Lispro (HumaLOG) 0-9 UNITS TIDWMEALS SQ Last administered on 08/23/19at 17:23; Start 08/21/19 at 17:00; Stop 08/23/19 at 19:12; Status DC Dextrose (Dextrose 50%-Water Syringe) 12.5 gm PRN Q15MIN PRN IV SEE COMMENTS; Start 08/21/19 at 16:30 Dextrose 250 ml PRN Q15MIN PRN IV SEE COMMENTS; Start 08/21/19 at 16:30 Oxycodone/ Acetaminophen (Percocet 5/325) 1 tab PRN Q4HRS PRN PO MILD PAIN 1-3 Last administered on 08/23/19at 07:59; Start 08/21/19 at 17:45 Amlodipine Besylate (Norvasc) 2.5 mg DAILY PO Last administered on 08/21/19at 17:43; Start 08/21/19 at 17:45; Stop 08/21/19 at 18:10; Status DC Insulin Human Lispro (HumaLOG) 8 units 1X ONCE SQ Last administered on 08/21/19at 21:01; Start 08/21/19 at 21:00; Stop 08/21/19 at 21:01; Status DC Insulin Glargine (Lantus Syringe) 10 unit 1X ONCE SQ Last administered on 08/21/19at 21:02; Start 08/21/19 at 21:00; Stop 08/21/19 at 21:01; Status DC Ondansetron HCl (Zofran) 4 mg PRN Q6HRS PRN IV NAUSEA/VOMITING; Start 08/22/19 at 10:00; Stop 08/22/19 at 20:00; Status DC Fentanyl Citrate (Fentanyl 2ml Vial) 25 mcg PRN Q5MIN PRN IV MILD PAIN 1-3; Start 08/22/19 at 10:00; Stop 08/22/19 at 20:00; Status DC Fentanyl Citrate (Fentanyl 2ml Vial) 50 mcg PRN Q5MIN PRN IV MODERATE TO SEVERE PAIN Last administered on 08/22/19at 16:32; Start 08/22/19 at 10:00; Stop 08/22/19 at 20:00; Status DC Morphine Sulfate (Morphine Sulfate) 1 mg PRN Q10MIN PRN IV SEVERE PAIN 7-10; Start 08/22/19 at 10:00; Stop 08/22/19 at 20:00; Status DC Ringer's Solution 1,000 ml @ 30 mls/hr Q24H IV ; Start 08/22/19 at 10:00; Stop 08/22/19 at 21:59; Status DC Hydromorphone HCl (Dilaudid) 0.5 mg PRN Q10MIN PRN IV SEV PAIN, Second choice Last administered on 08/22/19at 17:21; Start 08/22/19 at 10:00; Stop 08/22/19 at 20:00; Status DC Prochlorperazine Edisylate (Compazine) 5 mg PACU PRN PRN IV NAUSEA, MRX1; Start 08/22/19 at 10:00; Stop 08/22/19 at 20:00; Status DC Heparin Sodium (Porcine) (Heparin Sodium) 5,000 unit Q8HRS SQ Last administered on 08/24/19at 06:39; Start 08/22/19 at 11:00 Piperacillin Sod/ Tazobactam Sod 3.375 gm/Sodium Chloride 50 ml @ 100 mls/hr Q6HRS IV Last administered on 08/24/19at 06:39; Start 08/22/19 at 11:00 Vancomycin HCl (Vanco Per Pharmacy) 1 each PRN DAILY PRN MC SEE COMMENTS Last administered on 08/24/19at 04:55; Start 08/22/19 at 11:30 Lactobacillus Rhamnosus (Culturelle) 1 cap BID PO Last administered on 08/24/19at 08:32; Start 08/22/19 at 21:00 Ondansetron HCl (Zofran) 4 mg STK-MED ONCE .ROUTE ; Start 08/22/19 at 14:11; Stop 08/22/19 at 14:11; Status DC Propofol 20 ml @ As Directed STK-MED ONCE IV ; Start 08/22/19 at 14:11; Stop 08/22/19 at 14:11; Status DC Lidocaine HCl (Lidocaine Pf 2% Vial) 5 ml STK-MED ONCE .ROUTE ; Start 08/22/19 at 14:11; Stop 08/22/19 at 14:11; Status DC Dexamethasone Sodium Phosphate (Decadron) 4 mg STK-MED ONCE .ROUTE ; Start 08/22/19 at 14:11; Stop 08/22/19 at 14:11; Status DC Fentanyl Citrate (Fentanyl 2ml Vial) 100 mcg STK-MED ONCE .ROUTE ; Start 08/22/19 at 14:11; Stop 08/22/19 at 14:11; Status DC Insulin Human Lispro (HumaLOG VIAL for OP,RR ONLY) 0-10 units PRN Q1HR PRN SQ PER PROTOCOL Last administered on 08/22/19at 16:00; Start 08/22/19 at 15:15; Stop 08/23/19 at 15:14; Status DC Sevoflurane (Ultane) 30 ml STK-MED ONCE IH ; Start 08/22/19 at 15:38; Stop 08/22/19 at 15:38; Status DC Fentanyl Citrate (Fentanyl 2ml Vial) 100 mcg STK-MED ONCE .ROUTE ; Start 08/22/19 at 16:08; Stop 08/22/19 at 16:08; Status DC Hydromorphone HCl (Dilaudid) 2 mg STK-MED ONCE .ROUTE ; Start 08/22/19 at 16:29; Stop 08/22/19 at 16:29; Status DC Diphenhydramine HCl (Benadryl) 50 mg STK-MED ONCE .ROUTE ; Start 08/22/19 at 16:38; Stop 08/22/19 at 16:38; Status DC Diphenhydramine HCl (Benadryl) 25 mg 1X ONCE IVP Last administered on 08/22/19at 16:45; Start 08/22/19 at 16:45; Stop 08/22/19 at 16:46; Status DC Vancomycin HCl 1.25 gm/Sodium Chloride 250 ml @ 167 mls/hr Q8H IV Last administered on 08/24/19at 04:55; Start 08/23/19 at 04:30 Vancomycin HCl (Vancomycin Trough Level) 1 each 1X ONCE MC Last administered on 08/24/19at 05:21; Start 08/24/19 at 04:00; Stop 08/24/19 at 04:01; Status DC Oxycodone/ Acetaminophen (Percocet 10/325) 1 tab PRN Q4HRS PRN PO MODERATE TO SEVERE PAIN Last administered on 08/24/19 07:35; Start 08/23/19 at 09:15 Fentanyl Citrate (Fentanyl 2ml Vial) 50 mcg 1X ONCE IM Last administered on 08/23/19 11:41; Start 08/23/19 at 11:30; Stop 08/23/19 at 11:31; Status DC Hydromorphone HCl (Dilaudid) 1 mg PRN Q6HRS ONCE IV Last administered on 08/23/19at 13:03; Start 08/23/19 at 12:30; Stop 08/23/19 at 12:31; Status DC Diphenhydramine HCl (Benadryl) 25 mg PRN Q6HRS PRN PO ITCHING Last administered on 08/23/19at 15:11; Start 08/23/19 at 15:15 Hydromorphone HCl (Dilaudid) 1 mg PRN Q6HRS PRN IVP SEVERE PAIN Last administered on 08/24/19 01:26; Start 08/23/19 at 15:15 Nicotine (Nicoderm Cq 14mg) 1 patch PRN DAILY PRN TD SMOKING CESSATION; Start 08/23/19 at 15:15 Insulin Human Lispro (HumaLOG) 0-9 UNITS TIDWMEALHC SQ Last administered on 08/24/19 08:32; Start 08/23/19 at 21:00 Active Scripts Active Reported No Known Medications Prior To Admisstion (Info) Each 1 Each 1X Vitals/I & O Vital Sign - Last 24 Hours 08/23/19 08/23/19 08/23/19 08/23/19 07:59 10:03 11:00 11:41 Temp 97.9 97.9 Pulse 70 Resp 18 16 18 16 B/P (MAP) 157/92 (113) Pulse Ox 98 O2 Delivery Room Air Room Air Room Air Room Air 08/23/19 08/23/19 08/23/19 08/23/19 11:41 13:03 13:33 15:00 Temp 98.1 98.1 Pulse 82 Resp 16 16 16 B/P (MAP) 117/76 (90) Pulse Ox 93 O2 Delivery Room Air Room Air Room Air Room Air 08/23/19 08/23/19 08/23/19 08/23/19 16:39 17:34 17:34 18:13 Resp 16 18 18 16 O2 Delivery Room Air Room Air Room Air Room Air 08/23/19 08/23/19 08/23/19 08/23/19 19:45 20:44 20:55 22:41 Temp 97.5 97.5 Pulse 71 Resp 18 18 18 B/P (MAP) 147/103 (118) Pulse Ox 97 O2 Delivery Room Air Room Air Room Air Room Air 08/24/19 08/24/19 08/24/19 08/24/19 00:15 00:50 01:26 04:30 Temp 98.3 97.9 98.3 97.9 Pulse 66 81 Resp 20 20 20 18 B/P (MAP) 137/85 (102) 112/76 (88) Pulse Ox 95 98 O2 Delivery Room Air Room Air Room Air Room Air 08/24/19 08/24/19 08/24/19 08/24/19 05:21 05:21 07:00 07:35 Temp 98.2 98.2 Pulse 72 Resp 18 B/P (MAP) 132/74 (93) Pulse Ox 92 O2 Delivery Room Air Room Air Room Air Room Air O2 Flow Rate 2.0 08/24/19 08:39 O2 Delivery Room Air Intake and Output 0 08/23/19 08/24/19 08/24/19 17:00 01:00 09:00 Intake Total 240 ml 240 ml Balance 240 ml 240 ml FRANSISCO CANTU MD Aug 24, 2019 09:50
[2019-08-24] MEDS: HYDROmorphone 2 MG/ML VIAL IVP PRN ×3 (11:59→21:19)
[2019-08-24 12:18] LABS: VANC TR 16.6 mcg/mL (10.0-20.0)
[2019-08-24] MEDS: amLODIPine BESYLATE 5 MG TABLET PO SCH (15:22)
[2019-08-24] MEDS: diphenhydrAMINE HCL 25 MG CAPSULE PO PRN (18:28)
[2019-08-24 18:30] LABS: BILIRUBIN,URINE NEGATIVE (NEG); CLARITY,URINE CLEAR; COLOR,URINE YELLOW; NITRITE,URINE NEGATIVE (NEG); PH,URINE 6.5; PROTEIN,URINE NEGATIVE (NEG-TRACE)
[2019-08-24 18:38] LABS: BARBITURATES NEG (NEG); BENZODIAZEPINES NEG (NEG); CANNABINOIDS NEG (NEG); COCAINE NEG (NEG); METHADONE NEG (NEG); OPIATES POS (NEG); PHENCYCLIDINE NEG (NEG)
[2019-08-24 18:39] LABS: BACTERIA,URINE 0 /HPF (0-FEW); RBC,URINE 0 /HPF (0-2); SQUAMOUS EPITHELIAL CELL,UR OCC /LPF; WBC,URINE 0 /HPF (0-4)
[2019-08-24 18:42] LABS: AMPHETAMINE/METHAMPHETAMINE NEG (NEG)
[2019-08-25] MEDS: oxyCODONE/APAP 10/325 1 TAB TABLET PO PRN ×3 (01:24→21:53)
[2019-08-25] MEDS: HYDROmorphone 2 MG/ML VIAL IVP PRN ×4 (01:25→19:25)
[2019-08-25 03:00] VITALS: BP 124/85
[2019-08-25] MEDS: diphenhydrAMINE HCL 25 MG CAPSULE PO PRN ×3 (03:07→17:12)
[2019-08-25] MEDS: VANCOMYCIN 1.25 GM in IV NORMAL SALINE 250ML 250 ML IV SCH ×3 (04:50→22:37)
[2019-08-25 04:52] LABS: BASO # 0.1 x10^3/uL (0.0-0.2); BASO % 1 % (0-3); EOS # 0.4 x10^3/uL (0.0-0.7); EOS % 8 % (0-3); HEMATOCRIT 39.4 % (39.0-53.0); HEMOGLOBIN 12.9 g/dL (13.0-17.5); LYMPH # 2.1 x10^3/uL (1.0-4.8); LYMPH % 36 % (24-48); MEAN CORPUSCULAR HEMOGLOBIN 28 pg (25-35); MEAN CORPUSCULAR HGB CONC 33 g/dL (31-37); MEAN CORPUSCULAR VOLUME 86 fL (79-100); MONO # 0.8 x10^3/uL (0.0-1.1); MONO % 14 % (0-9); NEUT # 2.4 x10^3/uL (1.8-7.7); NEUT % 42 % (31-73); PLATELET COUNT 321 x10^3/uL (140-400); RED BLOOD COUNT 4.57 x10^6/uL (4.30-5.70); RED CELL DISTRIBUTION WIDTH 13.4 % (11.5-14.5); WHITE BLOOD COUNT 5.7 x10^3/uL (4.0-11.0)
[2019-08-25 05:28] LABS: ALBUMIN 2.4 g/dL (3.4-5.0); ALBUMIN/GLOBULIN RATIO 0.6 (1.0-1.7); CALCIUM 8.9 mg/dL (8.5-10.1); GFR 95.7; POTASSIUM 4.5 mmol/L (3.5-5.1); TOTAL BILIRUBIN 0.3 mg/dL (0.2-1.0); TOTAL PROTEIN 6.6 g/dL (6.4-8.2)
[2019-08-25] MEDS: PIPERACILLIN/TAZOBACTAM 3.375 GM in IV NORMAL SALINE 50ML 50 ML IV SCH ×3 (05:52→17:05)
[2019-08-25] MEDS: HEPARIN for SUB-Q USE 5,000 UNIT/ML VIAL. SQ SCH ×3 (06:18→21:53)
[2019-08-25 07:00] VITALS: BP 131/83
[2019-08-25] MEDS: LACTOBACILLUS RHAMNOSUS GG 1 CAPSULE. PO SCH ×2 (07:59→21:53)
[2019-08-25] MEDS: INSULIN LISPRO 300 UNITS/3 ML VIAL. SQ SCH ×4 (08:00→21:53)
[2019-08-25] MEDS: amLODIPine BESYLATE 5 MG TABLET PO SCH (08:23)
--- NOTE | 2019-08-25 08:54 | PDOC ---
SURGICAL PROGRESS NOTE Subjective ongoing pain control issues Vital Signs Vital Signs Date Time Temp Pulse Resp B/P (MAP) Pulse Ox O2 Delivery O2 Flow Rate FiO2 08/25/19 08:25 68 131/83 08/25/19 08:25 96 Room Air 08/25/19 07:00 98.1 16 98.1 08/25/19 03:00 2.0 I&O Intake and Output 08/25/19 07:00 Intake Total 250 ml Balance 250 ml IV Total 250 ml # Voids 3 General: Alert, Oriented X3, Cooperative Skin: Other (wounds packed, some indurated tissue around wound, noted to right groin area small pustules ) Labs Laboratory Tests Test 08/23/19 12:03 08/23/19 17:17 08/23/19 20:56 08/24/19 03:40 Glucose (Fingerstick) 279 mg/dL (70-99) 268 mg/dL (70-99) 235 mg/dL (70-99) Blood Urea Nitrogen 11 mg/dL (8-26) Creatinine 1.1 mg/dL (0.7-1.3) Estimated GFR (Cockcroft-Gault) 85.7 Vancomycin Level Trough 17.2 mcg/mL (10.0-20.0) Vancomycin Last Dose Date Vancomycin Last Dose Time 2029 Test 08/24/19 07:55 08/24/19 11:14 08/24/19 11:55 08/24/19 17:12 Glucose (Fingerstick) 245 mg/dL (70-99) 206 mg/dL (70-99) 270 mg/dL (70-99) Vancomycin Level Trough 16.6 mcg/mL (10.0-20.0) Vancomycin Last Dose Date 08/24/19 Vancomycin Last Dose Time 529 Test 08/24/19 18:00 08/24/19 21:00 08/25/19 04:30 08/25/19 07:31 Urine Collection Type Unknown Urine Color Yellow Urine Clarity Clear Urine pH 6.5 Urine Specific [place] 1.020 Urine Protein Negative mg/dL (NEG-TRACE) Urine Glucose (UA) >=1000 mg/dL (NEG) Urine Ketones (Stick) Negative mg/dL (NEG) Urine Blood Negative (NEG) Urine Nitrite Negative (NEG) Urine Bilirubin Negative (NEG) Urine Urobilinogen Dipstick 1.0 mg/dL (0.2 mg/dL) Urine Leukocyte Esterase Negative (NEG) Urine RBC 0 /HPF (0-2) Urine WBC 0 /HPF (0-4) Urine Squamous Epithelial Cells Occ /LPF Urine Bacteria 0 /HPF (0-FEW) Urine Opiates Screen Pos (NEG) Urine Methadone Screen Neg (NEG) Urine Barbiturates Neg (NEG) Urine Phencyclidine Screen Neg (NEG) Urine Amphetamine/Methamphetamine Neg (NEG) Urine Benzodiazepines Screen Neg (NEG) Urine Cocaine Screen Neg (NEG) Urine Cannabinoids Screen Neg (NEG) Urine Ethyl Alcohol Neg (NEG) Glucose (Fingerstick) 260 mg/dL (70-99) 181 mg/dL (70-99) White Blood Count 5.7 x10^3/uL (4.0-11.0) Red Blood Count 4.57 x10^6/uL (4.30-5.70) Hemoglobin 12.9 g/dL (13.0-17.5) Hematocrit 39.4 % (39.0-53.0) Mean Corpuscular Volume 86 fL (79-100) Mean Corpuscular Hemoglobin 28 pg (25-35) Mean Corpuscular Hemoglobin Concent 33 g/dL (31-37) Red Cell Distribution Width 13.4 % (11.5-14.5) Platelet Count 321 x10^3/uL (140-400) Neutrophils (%) (Auto) 42 % (31-73) Lymphocytes (%) (Auto) 36 % (24-48) Monocytes (%) (Auto) 14 % (0-9) Eosinophils (%) (Auto) 8 % (0-3) Basophils (%) (Auto) 1 % (0-3) Neutrophils # (Auto) 2.4 x10^3/uL (1.8-7.7) Lymphocytes # (Auto) 2.1 x10^3/uL (1.0-4.8) Monocytes # (Auto) 0.8 x10^3/uL (0.0-1.1) Eosinophils # (Auto) 0.4 x10^3/uL (0.0-0.7) Basophils # (Auto) 0.1 x10^3/uL (0.0-0.2) Sodium Level 136 mmol/L (136-145) Potassium Level 4.5 mmol/L (3.5-5.1) Chloride Level 102 mmol/L (98-107) Carbon Dioxide Level 26 mmol/L (21-32) Anion Gap 8 (6-14) Blood Urea Nitrogen 8 mg/dL (8-26) Creatinine 1.0 mg/dL (0.7-1.3) Estimated GFR (Cockcroft-Gault) 95.7 BUN/Creatinine Ratio 8 (6-20) Glucose Level 212 mg/dL (70-99) Calcium Level 8.9 mg/dL (8.5-10.1) Total Bilirubin 0.3 mg/dL (0.2-1.0) Aspartate Amino Transf (AST/SGOT) 16 U/L (15-37) Alanine Aminotransferase (ALT/SGPT) 11 U/L (16-63) Alkaline Phosphatase 88 U/L (46-116) Total Protein 6.6 g/dL (6.4-8.2) Albumin 2.4 g/dL (3.4-5.0) Albumin/Globulin Ratio 0.6 (1.0-1.7) Laboratory Tests Test 08/24/19 11:14 08/24/19 11:55 08/24/19 17:12 08/24/19 18:00 Glucose (Fingerstick) 206 mg/dL (70-99) 270 mg/dL (70-99) Vancomycin Level Trough 16.6 mcg/mL (10.0-20.0) Vancomycin Last Dose Date 08/24/19 Vancomycin Last Dose Time 0530 Urine Collection Type Unknown Urine Color Yellow Urine Clarity Clear Urine pH 6.5 Urine Specific [place] 1.020 Urine Protein Negative mg/dL (NEG-TRACE) Urine Glucose (UA) >=1000 mg/dL (NEG) Urine Ketones (Stick) Negative mg/dL (NEG) Urine Blood Negative (NEG) Urine Nitrite Negative (NEG) Urine Bilirubin Negative (NEG) Urine Urobilinogen Dipstick 1.0 mg/dL (0.2 mg/dL) Urine Leukocyte Esterase Negative (NEG) Urine RBC 0 /HPF (0-2) Urine WBC 0 /HPF (0-4) Urine Squamous Epithelial Cells Occ /LPF Urine Bacteria 0 /HPF (0-FEW) Urine Opiates Screen Pos (NEG) Urine Methadone Screen Neg (NEG) Urine Barbiturates Neg (NEG) Urine Phencyclidine Screen Neg (NEG) Urine Amphetamine/Methamphetamine Neg (NEG) Urine Benzodiazepines Screen Neg (NEG) Urine Cocaine Screen Neg (NEG) Urine Cannabinoids Screen Neg (NEG) Urine Ethyl Alcohol Neg (NEG) Test 08/24/19 21:00 08/25/19 04:30 08/25/19 07:31 Glucose (Fingerstick) 260 mg/dL (70-99) 181 mg/dL (70-99) White Blood Count 5.7 x10^3/uL (4.0-11.0) Red Blood Count 4.57 x10^6/uL (4.30-5.70) Hemoglobin 12.9 g/dL (13.0-17.5) Hematocrit 39.4 % (39.0-53.0) Mean Corpuscular Volume 86 fL (79-100) Mean Corpuscular Hemoglobin 28 pg (25-35) Mean Corpuscular Hemoglobin Concent 33 g/dL (31-37) Red Cell Distribution Width 13.4 % (11.5-14.5) Platelet Count 321 x10^3/uL (140-400) Neutrophils (%) (Auto) 42 % (31-73) Lymphocytes (%) (Auto) 36 % (24-48) Monocytes (%) (Auto) 14 % (0-9) Eosinophils (%) (Auto) 8 % (0-3) Basophils (%) (Auto) 1 % (0-3) Neutrophils # (Auto) 2.4 x10^3/uL (1.8-7.7) Lymphocytes # (Auto) 2.1 x10^3/uL (1.0-4.8) Monocytes # (Auto) 0.8 x10^3/uL (0.0-1.1) Eosinophils # (Auto) 0.4 x10^3/uL (0.0-0.7) Basophils # (Auto) 0.1 x10^3/uL (0.0-0.2) Sodium Level 136 mmol/L (136-145) Potassium Level 4.5 mmol/L (3.5-5.1) Chloride Level 102 mmol/L (98-107) Carbon Dioxide Level 26 mmol/L (21-32) Anion Gap 8 (6-14) Blood Urea Nitrogen 8 mg/dL (8-26) Creatinine 1.0 mg/dL (0.7-1.3) Estimated GFR (Cockcroft-Gault) 95.7 BUN/Creatinine Ratio 8 (6-20) Glucose Level 212 mg/dL (70-99) Calcium Level 8.9 mg/dL (8.5-10.1) Total Bilirubin 0.3 mg/dL (0.2-1.0) Aspartate Amino Transf (AST/SGOT) 16 U/L (15-37) Alanine Aminotransferase (ALT/SGPT) 11 U/L (16-63) Alkaline Phosphatase 88 U/L (46-116) Total Protein 6.6 g/dL (6.4-8.2) Albumin 2.4 g/dL (3.4-5.0) Albumin/Globulin Ratio 0.6 (1.0-1.7) Problem List Problems Medical Problems: (1) Abscess of groin, left Status: Acute (2) Abscess of groin, right Status: Acute (3) Cellulitis Status: Acute (4) DM2 (diabetes mellitus, type 2) Status: Chronic (5) Sepsis Status: Acute Assessment/Plan continue wound care, abx cultures pending SUNNI LEE GLASS SETTER Aug 25, 2019 08:54
--- NOTE | 2019-08-25 09:02 | PDOC ---
PROGRESS NOTES History of Present Illness History of Present Illness VTE Prophylaxis Ordered VTE Prophylaxis Devices: No VTE Pharmacological Prophylaxi: No Assessment/Plan Assessment/Plan cellulits sepsis groin abcess, Several complex, heterogeneously hypoechoic collections with predominately peripheral vascularity seen at the perineum, base of the scrotum, as well as along the left aspect of the gluteal fold most compatible with phlegmonous change/early abscess formation. The degree of internal complexity of these collections may render them difficult to drainage. Prominent heterogeneous collection with intermediate density internal contents and peripheral enhancement along the left aspect of the gluteal cleft measuring approximately 4.4 x 2.8 x 5.0 cm. This collection and surrounding soft tissue inflammatory changes extend to the posterior wall of the anorectal region without clear communication on this study ON CT 08/21 No findings to suggest epididymoorchitis. SEVERE PROTEIN-CALORIC MALNUTRITION pain not well controlled 08/25 following gen surg. imaging showed 3 abcesses, buttock, groin htn, reactive dm2 BLOOD CULT ID CONSULT IV VANC, ZOSYN DVT PROPHYLAXIS A1C dilaudid 1.5 mg iv q 3-4 hrs prn severe pain Operative Note Operative Note Operative Note Operative Note: Preoperative Diagnosis: Left perirectal, right groin abscesses Postoperative Diagnosis: Same Procedure: Incision and drainage of left perirectal abscess, incision and drainage of right groin abscesses Surgeon: Raffi Anesthesia: Gen. EBL: 10 mL Specimen: Cultures to micrology Drains: None Complications: None Indication: The patient is a 49-year-old male who is in newly diagnosed diabetic. He presented a hospital with groin and perirectal pain. Evaluation confirms a sizable left perirectal abscess as well as a right inferior groin abs cess. 29 MIN PT EXAM, CHART REVIEW, > 50% OF TIME SPENT WITH EXAM, CHART REVIEW, PT CARE COORDINATION Vitals Vitals Vital Signs Date Time Temp Pulse Resp B/P (MAP) Pulse Ox O2 Delivery O2 Flow Rate FiO2 08/25/19 08:25 68 131/83 08/25/19 08:25 96 Room Air 08/25/19 07:00 98.1 16 98.1 08/25/19 03:00 2.0 Physical Exam Physical Exam GENERAL: Lying down, alert, appears comfortable HEENT: Pupils equally round. Oropharynx clear. NECK: Supple. LUNGS: Clear to auscultation. HEART: S1, S2. ABDOMEN: Soft, nontender with bowel sounds present. EXTREMITIES: No gross edema or cyanosis. SKIN: left Lilibeth-rectal, scrotal and right groin post-op dressings in place NEUROLOGIC: Answers questions appropriately. General: Alert, Oriented X3, Cooperative, mild distress Heart: Regular rate, Normal S1, Normal S2 Lungs: Clear Abdomen: Soft, No tenderness, No hepatosplenomegaly Extremities: No clubbing, No cyanosis, No edema Skin: Other (wounds packed, some indurated tissue around wound, noted to right groin area small pustules ) Labs LABS Laboratory Tests Test 08/24/19 11:14 08/24/19 11:55 08/24/19 17:12 08/24/19 18:00 Glucose (Fingerstick) 206 mg/dL (70-99) 270 mg/dL (70-99) Vancomycin Level Trough 16.6 mcg/mL (10.0-20.0) Vancomycin Last Dose Date 08/24/19 Vancomycin Last Dose Time 0530 Urine Collection Type Unknown Urine Color Yellow Urine Clarity Clear Urine pH 6.5 Urine Specific [place] 1.020 Urine Protein Negative mg/dL (NEG-TRACE) Urine Glucose (UA) >=1000 mg/dL (NEG) Urine Ketones (Stick) Negative mg/dL (NEG) Urine Blood Negative (NEG) Urine Nitrite Negative (NEG) Urine Bilirubin Negative (NEG) Urine Urobilinogen Dipstick 1.0 mg/dL (0.2 mg/dL) Urine Leukocyte Esterase Negative (NEG) Urine RBC 0 /HPF (0-2) Urine WBC 0 /HPF (0-4) Urine Squamous Epithelial Cells Occ /LPF Urine Bacteria 0 /HPF (0-FEW) Urine Opiates Screen Pos (NEG) Urine Methadone Screen Neg (NEG) Urine Barbiturates Neg (NEG) Urine Phencyclidine Screen Neg (NEG) Urine Amphetamine/Methamphetamine Neg (NEG) Urine Benzodiazepines Screen Neg (NEG) Urine Cocaine Screen Neg (NEG) Urine Cannabinoids Screen Neg (NEG) Urine Ethyl Alcohol Neg (NEG) Test 08/24/19 21:00 08/25/19 04:30 08/25/19 07:31 Glucose (Fingerstick) 260 mg/dL (70-99) 181 mg/dL (70-99) White Blood Count 5.7 x10^3/uL (4.0-11.0) Red Blood Count 4.57 x10^6/uL (4.30-5.70) Hemoglobin 12.9 g/dL (13.0-17.5) Hematocrit 39.4 % (39.0-53.0) Mean Corpuscular Volume 86 fL (79-100) Mean Corpuscular Hemoglobin 28 pg (25-35) Mean Corpuscular Hemoglobin Concent 33 g/dL (31-37) Red Cell Distribution Width 13.4 % (11.5-14.5) Platelet Count 321 x10^3/uL (140-400) Neutrophils (%) (Auto) 42 % (31-73) Lymphocytes (%) (Auto) 36 % (24-48) Monocytes (%) (Auto) 14 % (0-9) Eosinophils (%) (Auto) 8 % (0-3) Basophils (%) (Auto) 1 % (0-3) Neutrophils # (Auto) 2.4 x10^3/uL (1.8-7.7) Lymphocytes # (Auto) 2.1 x10^3/uL (1.0-4.8) Monocytes # (Auto) 0.8 x10^3/uL (0.0-1.1) Eosinophils # (Auto) 0.4 x10^3/uL (0.0-0.7) Basophils # (Auto) 0.1 x10^3/uL (0.0-0.2) Sodium Level 136 mmol/L (136-145) Potassium Level 4.5 mmol/L (3.5-5.1) Chloride Level 102 mmol/L (98-107) Carbon Dioxide Level 26 mmol/L (21-32) Anion Gap 8 (6-14) Blood Urea Nitrogen 8 mg/dL (8-26) Creatinine 1.0 mg/dL (0.7-1.3) Estimated GFR (Cockcroft-Gault) 95.7 BUN/Creatinine Ratio 8 (6-20) Glucose Level 212 mg/dL (70-99) Calcium Level 8.9 mg/dL (8.5-10.1) Total Bilirubin 0.3 mg/dL (0.2-1.0) Aspartate Amino Transf (AST/SGOT) 16 U/L (15-37) Alanine Aminotransferase (ALT/SGPT) 11 U/L (16-63) Alkaline Phosphatase 88 U/L (46-116) Total Protein 6.6 g/dL (6.4-8.2) Albumin 2.4 g/dL (3.4-5.0) Albumin/Globulin Ratio 0.6 (1.0-1.7) Assessment and Plan Assessmemt and Plan Problems Medical Problems: (1) Abscess of groin, left Status: Acute (2) Abscess of groin, right Status: Acute (3) Cellulitis Status: Acute (4) DM2 (diabetes mellitus, type 2) Status: Chronic (5) Sepsis Status: Acute Comment Review of Relevant I have reviewed the following items liliana (where applicable) has been applied. Labs Laboratory Tests Test 08/23/19 12:03 08/23/19 17:17 08/23/19 20:56 08/24/19 03:40 Glucose (Fingerstick) 279 mg/dL (70-99) 268 mg/dL (70-99) 235 mg/dL (70-99) Blood Urea Nitrogen 11 mg/dL (8-26) Creatinine 1.1 mg/dL (0.7-1.3) Estimated GFR (Cockcroft-Gault) 85.7 Vancomycin Level Trough 17.2 mcg/mL (10.0-20.0) Vancomycin Last Dose Date Vancomycin Last Dose Time 2029 Test 08/24/19 07:55 08/24/19 11:14 08/24/19 11:55 08/24/19 17:12 Glucose (Fingerstick) 245 mg/dL (70-99) 206 mg/dL (70-99) 270 mg/dL (70-99) Vancomycin Level Trough 16.6 mcg/mL (10.0-20.0) Vancomycin Last Dose Date 08/24/19 Vancomycin Last Dose Time 529 Test 08/24/19 18:00 08/24/19 21:00 08/25/19 04:30 08/25/19 07:31 Urine Collection Type Unknown Urine Color Yellow Urine Clarity Clear Urine pH 6.5 Urine Specific [place] 1.020 Urine Protein Negative mg/dL (NEG-TRACE) Urine Glucose (UA) >=1000 mg/dL (NEG) Urine Ketones (Stick) Negative mg/dL (NEG) Urine Blood Negative (NEG) Urine Nitrite Negative (NEG) Urine Bilirubin Negative (NEG) Urine Urobilinogen Dipstick 1.0 mg/dL (0.2 mg/dL) Urine Leukocyte Esterase Negative (NEG) Urine RBC 0 /HPF (0-2) Urine WBC 0 /HPF (0-4) Urine Squamous Epithelial Cells Occ /LPF Urine Bacteria 0 /HPF (0-FEW) Urine Opiates Screen Pos (NEG) Urine Methadone Screen Neg (NEG) Urine Barbiturates Neg (NEG) Urine Phencyclidine Screen Neg (NEG) Urine Amphetamine/Methamphetamine Neg (NEG) Urine Benzodiazepines Screen Neg (NEG) Urine Cocaine Screen Neg (NEG) Urine Cannabinoids Screen Neg (NEG) Urine Ethyl Alcohol Neg (NEG) Glucose (Fingerstick) 260 mg/dL (70-99) 181 mg/dL (70-99) White Blood Count 5.7 x10^3/uL (4.0-11.0) Red Blood Count 4.57 x10^6/uL (4.30-5.70) Hemoglobin 12.9 g/dL (13.0-17.5) Hematocrit 39.4 % (39.0-53.0) Mean Corpuscular Volume 86 fL (79-100) Mean Corpuscular Hemoglobin 28 pg (25-35) Mean Corpuscular Hemoglobin Concent 33 g/dL (31-37) Red Cell Distribution Width 13.4 % (11.5-14.5) Platelet Count 321 x10^3/uL (140-400) Neutrophils (%) (Auto) 42 % (31-73) Lymphocytes (%) (Auto) 36 % (24-48) Monocytes (%) (Auto) 14 % (0-9) Eosinophils (%) (Auto) 8 % (0-3) Basophils (%) (Auto) 1 % (0-3) Neutrophils # (Auto) 2.4 x10^3/uL (1.8-7.7) Lymphocytes # (Auto) 2.1 x10^3/uL (1.0-4.8) Monocytes # (Auto) 0.8 x10^3/uL (0.0-1.1) Eosinophils # (Auto) 0.4 x10^3/uL (0.0-0.7) Basophils # (Auto) 0.1 x10^3/uL (0.0-0.2) Sodium Level 136 mmol/L (136-145) Potassium Level 4.5 mmol/L (3.5-5.1) Chloride Level 102 mmol/L (98-107) Carbon Dioxide Level 26 mmol/L (21-32) Anion Gap 8 (6-14) Blood Urea Nitrogen 8 mg/dL (8-26) Creatinine 1.0 mg/dL (0.7-1.3) Estimated GFR (Cockcroft-Gault) 95.7 BUN/Creatinine Ratio 8 (6-20) Glucose Level 212 mg/dL (70-99) Calcium Level 8.9 mg/dL (8.5-10.1) Total Bilirubin 0.3 mg/dL (0.2-1.0) Aspartate Amino Transf (AST/SGOT) 16 U/L (15-37) Alanine Aminotransferase (ALT/SGPT) 11 U/L (16-63) Alkaline Phosphatase 88 U/L (46-116) Total Protein 6.6 g/dL (6.4-8.2) Albumin 2.4 g/dL (3.4-5.0) Albumin/Globulin Ratio 0.6 (1.0-1.7) Laboratory Tests Test 08/24/19 11:14 08/24/19 11:55 08/24/19 17:12 08/24/19 18:00 Glucose (Fingerstick) 206 mg/dL (70-99) 270 mg/dL (70-99) Vancomycin Level Trough 16.6 mcg/mL (10.0-20.0) Vancomycin Last Dose Date 08/24/19 Vancomycin Last Dose Time 0530 Urine Collection Type Unknown Urine Color Yellow Urine Clarity Clear Urine pH 6.5 Urine Specific [place] 1.020 Urine Protein Negative mg/dL (NEG-TRACE) Urine Glucose (UA) >=1000 mg/dL (NEG) Urine Ketones (Stick) Negative mg/dL (NEG) Urine Blood Negative (NEG) Urine Nitrite Negative (NEG) Urine Bilirubin Negative (NEG) Urine Urobilinogen Dipstick 1.0 mg/dL (0.2 mg/dL) Urine Leukocyte Esterase Negative (NEG) Urine RBC 0 /HPF (0-2) Urine WBC 0 /HPF (0-4) Urine Squamous Epithelial Cells Occ /LPF Urine Bacteria 0 /HPF (0-FEW) Urine Opiates Screen Pos (NEG) Urine Methadone Screen Neg (NEG) Urine Barbiturates Neg (NEG) Urine Phencyclidine Screen Neg (NEG) Urine Amphetamine/Methamphetamine Neg (NEG) Urine Benzodiazepines Screen Neg (NEG) Urine Cocaine Screen Neg (NEG) Urine Cannabinoids Screen Neg (NEG) Urine Ethyl Alcohol Neg (NEG) Test 08/24/19 21:00 08/25/19 04:30 08/25/19 07:31 Glucose (Fingerstick) 260 mg/dL (70-99) 181 mg/dL (70-99) White Blood Count 5.7 x10^3/uL (4.0-11.0) Red Blood Count 4.57 x10^6/uL (4.30-5.70) Hemoglobin 12.9 g/dL (13.0-17.5) Hematocrit 39.4 % (39.0-53.0) Mean Corpuscular Volume 86 fL (79-100) Mean Corpuscular Hemoglobin 28 pg (25-35) Mean Corpuscular Hemoglobin Concent 33 g/dL (31-37) Red Cell Distribution Width 13.4 % (11.5-14.5) Platelet Count 321 x10^3/uL (140-400) Neutrophils (%) (Auto) 42 % (31-73) Lymphocytes (%) (Auto) 36 % (24-48) Monocytes (%) (Auto) 14 % (0-9) Eosinophils (%) (Auto) 8 % (0-3) Basophils (%) (Auto) 1 % (0-3) Neutrophils # (Auto) 2.4 x10^3/uL (1.8-7.7) Lymphocytes # (Auto) 2.1 x10^3/uL (1.0-4.8) Monocytes # (Auto) 0.8 x10^3/uL (0.0-1.1) Eosinophils # (Auto) 0.4 x10^3/uL (0.0-0.7) Basophils # (Auto) 0.1 x10^3/uL (0.0-0.2) Sodium Level 136 mmol/L (136-145) Potassium Level 4.5 mmol/L (3.5-5.1) Chloride Level 102 mmol/L (98-107) Carbon Dioxide Level 26 mmol/L (21-32) Anion Gap 8 (6-14) Blood Urea Nitrogen 8 mg/dL (8-26) Creatinine 1.0 mg/dL (0.7-1.3) Estimated GFR (Cockcroft-Gault) 95.7 BUN/Creatinine Ratio 8 (6-20) Glucose Level 212 mg/dL (70-99) Calcium Level 8.9 mg/dL (8.5-10.1) Total Bilirubin 0.3 mg/dL (0.2-1.0) Aspartate Amino Transf (AST/SGOT) 16 U/L (15-37) Alanine Aminotransferase (ALT/SGPT) 11 U/L (16-63) Alkaline Phosphatase 88 U/L (46-116) Total Protein 6.6 g/dL (6.4-8.2) Albumin 2.4 g/dL (3.4-5.0) Albumin/Globulin Ratio 0.6 (1.0-1.7) Microbiology 08/22/19 Anaerobic/Aerobic Culture, Resulted Pending 08/22/19 Anaerobic Culture Result 1 (HUGO), Resulted Pending 08/22/19 Aerobic Culture, Resulted Pending 08/22/19 Aerobic Culture Result 1 (HUGO), Resulted Pending 08/22/19 Gram Stain - Final, Resulted 08/22/19 Gram Stain Result 1 (HUGO) - Final, Resulted 08/22/19 Gram Stain Result 2 (HUGO) - Final, Resulted 08/21/19 Blood Culture - Preliminary, Resulted NO GROWTH AFTER 3 DAYS Medications Current Medications Piperacillin Sod/ Tazobactam Sod 4.5 gm/Sodium Chloride 100 ml @ 200 mls/hr 1X ONCE IV Last administered on 08/21/19at 14:50; Start 08/21/19 at 14:30; Stop 08/21/19 at 14:59; Status DC Vancomycin HCl (Vanco Per Pharmacy) 1 each 1X ONCE MC Last administered on 08/21/19at 16:19; Start 08/21/19 at 14:15; Stop 08/21/19 at 15:30; Status DC Sodium Chloride 1,000 ml @ 2,000 mls/hr Q30M IV ; Start 08/21/19 at 14:10; Stop 08/21/19 at 15:18; Status DC Morphine Sulfate (Morphine Sulfate) 4 mg PRN Q15MIN PRN IV/SQ PAIN GREATER THAN 3/10; Start 08/21/19 at 14:15; Stop 08/22/19 at 14:14; Status DC Vancomycin HCl 2 gm/Sodium Chloride 500 ml @ 250 mls/hr 1X ONCE IV Last administered on 08/21/19at 15:29; Start 08/21/19 at 14:45; Stop 08/21/19 at 16:44; Status DC Iohexol (Omnipaque 300 Mg/ml) 75 ml 1X ONCE IV Last administered on 08/21/19at 15:52; Start 08/21/19 at 15:30; Stop 08/21/19 at 15:31; Status DC Info (CONTRAST GIVEN -- Rx MONITORING) 1 each PRN DAILY PRN MC SEE COMMENTS; Start 08/21/19 at 15:30; Stop 08/23/19 at 15:29; Status DC Vancomycin HCl 1.25 gm/Sodium Chloride 250 ml @ 167 mls/hr Q12H IV Last administered on 08/22/19at 17:42; Start 08/22/19 at 03:30; Stop 08/23/19 at 04:29; Status DC Vancomycin HCl (Vancomycin Trough Level) 1 each 1X ONCE MC Last administered on 08/23/19at 05:10; Start 08/23/19 at 03:00; Stop 08/23/19 at 03:01; Status DC Ondansetron HCl (Zofran) 4 mg PRN Q8HRS PRN IV NAUSEA/VOMITING; Start 08/21/19 at 16:15; Stop 08/22/19 at 16:14; Status DC Morphine Sulfate (Morphine Sulfate) 4 mg PRN Q2HR PRN IV PAIN Last administered on 08/22/19at 11:40; Start 08/21/19 at 16:15; Stop 08/22/19 at 16:14; Status DC Acetaminophen (Tylenol) 650 mg PRN Q4HRS PRN PO FEVER; Start 08/21/19 at 16:15; Stop 08/22/19 at 16:14; Status DC Insulin Human Lispro (HumaLOG) 0-9 UNITS TIDWMEALS SQ Last administered on 08/23/19at 17:23; Start 08/21/19 at 17:00; Stop 08/23/19 at 19:12; Status DC Dextrose (Dextrose 50%-Water Syringe) 12.5 gm PRN Q15MIN PRN IV SEE COMMENTS; Start 08/21/19 at 16:30 Dextrose 250 ml PRN Q15MIN PRN IV SEE COMMENTS; Start 08/21/19 at 16:30 Oxycodone/ Acetaminophen (Percocet 5/325) 1 tab PRN Q4HRS PRN PO MILD PAIN 1-3 Last administered on 08/23/19at 07:59; Start 08/21/19 at 17:45 Amlodipine Besylate (Norvasc) 2.5 mg DAILY PO Last administered on 08/21/19at 17:43; Start 08/21/19 at 17:45; Stop 08/21/19 at 18:10; Status DC Insulin Human Lispro (HumaLOG) 8 units 1X ONCE SQ Last administered on 9at 21:01; Start 08/21/19 at 21:00; Stop 08/21/19 at 21:01; Status DC Insulin Glargine (Lantus Syringe) 10 unit 1X ONCE SQ Last administered on 08/21/19at 21:02; Start 08/21/19 at 21:00; Stop 08/21/19 at 21:01; Status DC Ondansetron HCl (Zofran) 4 mg PRN Q6HRS PRN IV NAUSEA/VOMITING; Start 08/22/19 at 10:00; Stop 08/22/19 at 20:00; Status DC Fentanyl Citrate (Fentanyl 2ml Vial) 25 mcg PRN Q5MIN PRN IV MILD PAIN 1-3; Start 08/22/19 at 10:00; Stop 08/22/19 at 20:00; Status DC Fentanyl Citrate (Fentanyl 2ml Vial) 50 mcg PRN Q5MIN PRN IV MODERATE TO SEVERE PAIN Last administered on 08/22/19at 16:32; Start 08/22/19 at 10:00; Stop 08/22/19 at 20:00; Status DC Morphine Sulfate (Morphine Sulfate) 1 mg PRN Q10MIN PRN IV SEVERE PAIN 7-10; Start 08/22/19 at 10:00; Stop 08/22/19 at 20:00; Status DC Ringer's Solution 1,000 ml @ 30 mls/hr Q24H IV ; Start 08/22/19 at 10:00; Stop 08/22/19 at 21:59; Status DC Hydromorphone HCl (Dilaudid) 0.5 mg PRN Q10MIN PRN IV SEV PAIN, Second choice Last administered on 08/22/19at 17:21; Start 08/22/19 at 10:00; Stop 08/22/19 at 20:00; Status DC Prochlorperazine Edisylate (Compazine) 5 mg PACU PRN PRN IV NAUSEA, MRX1; Start 08/22/19 at 10:00; Stop 08/22/19 at 20:00; Status DC Heparin Sodium (Porcine) (Heparin Sodium) 5,000 unit Q8HRS SQ Last administered on 08/25/19at 06:18; Start 08/22/19 at 11:00 Piperacillin Sod/ Tazobactam Sod 3.375 gm/Sodium Chloride 50 ml @ 100 mls/hr Q6HRS IV Last administered on 08/25/19at 05:52; Start 08/22/19 at 11:00 Vancomycin HCl (Vanco Per Pharmacy) 1 each PRN DAILY PRN MC SEE COMMENTS Last administered on 08/24/19at 14:26; Start 08/22/19 at 11:30 Lactobacillus Rhamnosus (Culturelle) 1 cap BID PO Last administered on 08/24/19at 21:17; Start 08/22/19 at 21:00 Ondansetron HCl (Zofran) 4 mg STK-MED ONCE .ROUTE ; Start 08/22/19 at 14:11; Stop 08/22/19 at 14:11; Status DC Propofol 20 ml @ As Directed STK-MED ONCE IV ; Start 08/22/19 at 14:11; Stop 08/22/19 at 14:11; Status DC Lidocaine HCl (Lidocaine Pf 2% Vial) 5 ml STK-MED ONCE .ROUTE ; Start 08/22/19 at 14:11; Stop 08/22/19 at 14:11; Status DC Dexamethasone Sodium Phosphate (Decadron) 4 mg STK-MED ONCE .ROUTE ; Start 08/03 12/20 at 14:11; Stop 08/22/19 at 14:11; Status DC Fentanyl Citrate (Fentanyl 2ml Vial) 100 mcg STK-MED ONCE .ROUTE ; Start 08/22 at 14:11; Stop 08/22/19 at 14:11; Status DC Insulin Human Lispro (HumaLOG VIAL for OP,RR ONLY) 0-10 units PRN Q1HR PRN SQ PER PROTOCOL Last administered on 08/22/19at 16:00; Start 08/22/19 at 15:15; Stop 08/23/19 at 15:14; Status DC Sevoflurane (Ultane) 30 ml STK-MED ONCE IH ; Start 08/22/19 at 15:38; Stop 08/22/19 at 15:38; Status DC Fentanyl Citrate (Fentanyl 2ml Vial) 100 mcg STK-MED ONCE .ROUTE ; Start 08/22/19 at 16:08; Stop 08/22/19 at 16:08; Status DC Hydromorphone HCl (Dilaudid) 2 mg STK-MED ONCE .ROUTE ; Start 08/22/19 at 16:29; Stop 08/22/19 at 16:29; Status DC Diphenhydramine HCl (Benadryl) 50 mg STK-MED ONCE .ROUTE ; Start 08/22/19 at 16:38; Stop 08/22/19 at 16:38; Status DC Diphenhydramine HCl (Benadryl) 25 mg 1X ONCE IVP Last administered on 08/22/19at 16:45; Start 08/22/19 at 16:45; Stop 08/22/19 at 16:46; Status DC Vancomycin HCl 1.25 gm/Sodium Chloride 250 ml @ 167 mls/hr Q8H IV Last administered on 08/25/19at 04:50; Start 08/23/19 at 04:30 Vancomycin HCl (Vancomycin Trough Level) 1 each 1X ONCE MC Last administered on 08/24/19at 05:21; Start 08/24/19 at 04:00; Stop 08/24/19 at 04:01; Status DC Oxycodone/ Acetaminophen (Percocet 10/325) 1 tab PRN Q4HRS PRN PO MODERATE TO SEVERE PAIN Last administered on 08/25/19at 08:25; Start 08/23/19 at 09:15 Fentanyl Citrate (Fentanyl 2ml Vial) 50 mcg 1X ONCE IM Last administered on 08/23/19at 11:41; Start 08/23/19 at 11:30; Stop 08/23/19 at 11:31; Status DC Hydromorphone HCl (Dilaudid) 1 mg PRN Q6HRS ONCE IV Last administered on 08/23/19at 13:03; Start 08/23/19 at 12:30; Stop 08/23/19 at 12:31; Status DC Diphenhydramine HCl (Benadryl) 25 mg PRN Q6HRS PRN PO ITCHING Last administered on 08/25/19 03:07; Start 08/23/19 at 15:15 Hydromorphone HCl (Dilaudid) 1 mg PRN Q6HRS PRN IVP SEVERE PAIN Last administered on 08/24/19at 01:26; Start 08/23/19 at 15:15; Stop 08/24/19 at 11:43; Status DC Nicotine (Nicoderm Cq 14mg) 1 patch PRN DAILY PRN TD SMOKING CESSATION; Start 08/23/19 at 15:15 Insulin Human Lispro (HumaLOG) 0-9 UNITS TIDWMEALHC SQ Last administered on 08/24/19at 21:17; Start 08/23/19 at 21:00 Vancomycin HCl (Vancomycin Trough Level) 1 each 1X ONCE MC Last administered on 08/24/19at 12:48; Start 08/24/19 at 12:00; Stop 08/24/19 at 12:01; Status DC Hydromorphone HCl (Dilaudid) 1.5 mg PRN Q4HRS PRN IVP SEVERE PAIN Last administered on 08/25/19 01:25; Start 08/24/19 at 11:45 Amlodipine Besylate (Norvasc) 5 mg DAILY PO Last administered on 08/25/19 08:25; Start 08/24/19 at 15:15 Active Scripts Active Reported No Known Medications Prior To Admisstion (Info) Each 1 Each MC 1X Vitals/I & O Vital Sign - Last 24 Hours 08/24/19 08/24/19 08/24/19 08/24/19 07:20 07:35 08:39 11:00 Temp 98.0 98.0 Pulse 78 Resp 18 B/P (MAP) 126/83 (97) Pulse Ox 96 O2 Delivery Room Air Room Air Room Air Room Air 08/24/19 08/24/19 08/24/19 08/24/19 12:04 15:00 15:24 16:41 Temp 98.0 98.0 Pulse 76 Resp 18 B/P (MAP) 137/100 (112) 137/100 Pulse Ox 98 O2 Delivery Room Air Room Air Room Air 08/24/19 08/24/19 08/24/19 08/24/19 17:18 17:18 18:26 19:00 Temp 98.2 98.2 Pulse 70 Resp 18 B/P (MAP) 105/59 (74) Pulse Ox 96 O2 Delivery Room Air Room Air Room Air Room Air O2 Flow Rate 2.0 08/24/19 08/24/19 08/24/19 08/24/19 20:00 21:17 21:19 22:16 Pulse Ox 96 96 96 O2 Delivery Room Air Room Air Room Air Room Air 08/24/19 08/24/19 08/25/19 08/25/19 22:16 23:00 01:25 01:25 Temp 98.5 98.5 Pulse 81 Resp 18 B/P (MAP) 130/94 (106) Pulse Ox 96 98 98 98 O2 Delivery Room Air Room Air Room Air Room Air O2 Flow Rate 2.0 08/25/19 08/25/19 08/25/19 08/25/19 02:50 02:51 03:00 07:00 Temp 98.2 98.1 98.2 98.1 Pulse 71 68 Resp 18 16 B/P (MAP) 124/85 (98) 131/83 (99) Pulse Ox 98 98 95 96 O2 Delivery Room Air Room Air Room Air Room Air O2 Flow Rate 2.0 08/25/19 08/25/19 08/25/19 07:33 08:25 08:25 Pulse 68 B/P (MAP) 131/83 Pulse Ox 96 O2 Delivery Room Air Room Air Intake and Output 08/24/19 08/25/19 08/25/19 17:00 01:00 09:00 Intake Total 250 ml Balance 250 ml FRANSISCO CANTU MD Aug 25, 2019 09:01
--- NOTE | 2019-08-25 09:52 | PDOC ---
Infectious Disease Note Subjective Subjective feeling better ROS ROS no n/v/d/sob Vital Sign Vital Signs Vital Signs Date Time Temp Pulse Resp B/P (MAP) Pulse Ox O2 Delivery O2 Flow Rate FiO2 08/25/19 09:44 96 Room Air 08/25/19 08:25 68 131/83 08/25/19 07:00 98.1 16 98.1 08/25/19 03:00 2.0 Physical Exam PHYSICAL EXAM GENERAL: Lying down, alert, appears comfortable HEENT: Pupils equally round. Oropharynx clear. NECK: Supple. LUNGS: Clear to auscultation. HEART: S1, S2. ABDOMEN: Soft, nontender with bowel sounds present. EXTREMITIES: No gross edema or cyanosis. SKIN: left Lilibeth-rectal, scrotal and right groin post-op dressings in place NEUROLOGIC: Answers questions appropriately. Labs Lab Laboratory Tests Test 08/24/19 11:14 08/24/19 11:55 08/24/19 17:12 08/24/19 18:00 Glucose (Fingerstick) 206 mg/dL (70-99) 270 mg/dL (70-99) Vancomycin Level Trough 16.6 mcg/mL (10.0-20.0) Vancomycin Last Dose Date 08/24/19 Vancomycin Last Dose Time 0530 Urine Collection Type Unknown Urine Color Yellow Urine Clarity Clear Urine pH 6.5 Urine Specific [place] 1.020 Urine Protein Negative mg/dL (NEG-TRACE) Urine Glucose (UA) >=1000 mg/dL (NEG) Urine Ketones (Stick) Negative mg/dL (NEG) Urine Blood Negative (NEG) Urine Nitrite Negative (NEG) Urine Bilirubin Negative (NEG) Urine Urobilinogen Dipstick 1.0 mg/dL (0.2 mg/dL) Urine Leukocyte Esterase Negative (NEG) Urine RBC 0 /HPF (0-2) Urine WBC 0 /HPF (0-4) Urine Squamous Epithelial Cells Occ /LPF Urine Bacteria 0 /HPF (0-FEW) Urine Opiates Screen Pos (NEG) Urine Methadone Screen Neg (NEG) Urine Barbiturates Neg (NEG) Urine Phencyclidine Screen Neg (NEG) Urine Amphetamine/Methamphetamine Neg (NEG) Urine Benzodiazepines Screen Neg (NEG) Urine Cocaine Screen Neg (NEG) Urine Cannabinoids Screen Neg (NEG) Urine Ethyl Alcohol Neg (NEG) Test 08/24/19 21:00 08/25/19 04:30 08/25/19 07:31 Glucose (Fingerstick) 260 mg/dL (70-99) 181 mg/dL (70-99) White Blood Count 5.7 x10^3/uL (4.0-11.0) Red Blood Count 4.57 x10^6/uL (4.30-5.70) Hemoglobin 12.9 g/dL (13.0-17.5) Hematocrit 39.4 % (39.0-53.0) Mean Corpuscular Volume 86 fL (79-100) Mean Corpuscular Hemoglobin 28 pg (25-35) Mean Corpuscular Hemoglobin Concent 33 g/dL (31-37) Red Cell Distribution Width 13.4 % (11.5-14.5) Platelet Count 321 x10^3/uL (140-400) Neutrophils (%) (Auto) 42 % (31-73) Lymphocytes (%) (Auto) 36 % (24-48) Monocytes (%) (Auto) 14 % (0-9) Eosinophils (%) (Auto) 8 % (0-3) Basophils (%) (Auto) 1 % (0-3) Neutrophils # (Auto) 2.4 x10^3/uL (1.8-7.7) Lymphocytes # (Auto) 2.1 x10^3/uL (1.0-4.8) Monocytes # (Auto) 0.8 x10^3/uL (0.0-1.1) Eosinophils # (Auto) 0.4 x10^3/uL (0.0-0.7) Basophils # (Auto) 0.1 x10^3/uL (0.0-0.2) Sodium Level 136 mmol/L (136-145) Potassium Level 4.5 mmol/L (3.5-5.1) Chloride Level 102 mmol/L (98-107) Carbon Dioxide Level 26 mmol/L (21-32) Anion Gap 8 (6-14) Blood Urea Nitrogen 8 mg/dL (8-26) Creatinine 1.0 mg/dL (0.7-1.3) Estimated GFR (Cockcroft-Gault) 95.7 BUN/Creatinine Ratio 8 (6-20) Glucose Level 212 mg/dL (70-99) Calcium Level 8.9 mg/dL (8.5-10.1) Total Bilirubin 0.3 mg/dL (0.2-1.0) Aspartate Amino Transf (AST/SGOT) 16 U/L (15-37) Alanine Aminotransferase (ALT/SGPT) 11 U/L (16-63) Alkaline Phosphatase 88 U/L (46-116) Total Protein 6.6 g/dL (6.4-8.2) Albumin 2.4 g/dL (3.4-5.0) Albumin/Globulin Ratio 0.6 (1.0-1.7) Micro ANAEROBIC-AEROBIC CULTURE PENDING ANAEROBIC RES 1 PENDING AEROBIC CULT PENDING AEROBIC RES 1 PENDING GRAM STAIN Final Final report GRAM STAIN RES 1 Final Comment Many gram positive cocci. GRAM STAIN RES 2 Final Comment No white blood cells seen. Performed at: [place] [id number] Switchboard And Control Room Operator: COLE Willson MD, Phone: [phone] ANAEROBIC-AEROBIC CULTURE PENDING ANAEROBIC RES 1 PENDING AEROBIC CULT PENDING AEROBIC RES 1 PENDING GRAM STAIN Final Final report GRAM STAIN RES 1 Final Comment Rare white blood cells. GRAM STAIN RES 2 Final Comment Many gram positive cocci in pairs, chains, and clusters Performed at: [address] [id number] Switchboard And Control Room Operator: COLE Willson MD, Phone: [phone] Objective Assessment Multiple abscesses involving left buttocks, perineal/groin areas s/p I and D, 08/22 Diabetes Hypertension Tobaccoism Leukocytosis multifactorial, reactive to steroids, surgery and infection Plan Plan of Care vanc and Zosyn Probiotics Monitor renal function closely Trough 9.1 f/u cultures Glycemic control Smoking cessation Local wound care as directed D/w nursing NATHALY REMY MD Aug 25, 2019 09:52
[2019-08-25 11:00] VITALS: BP 145/85
[2019-08-25] MEDS: VANCOMYCIN PER PHARMACY MC PRN (14:36)
[2019-08-25 15:00] VITALS: BP 132/96
[2019-08-25 19:20] VITALS: BP 117/69
[2019-08-25 23:04] VITALS: BP 128/79
[2019-08-26] MEDS: HYDROmorphone 2 MG/ML VIAL IVP PRN ×5 (00:21→17:59)
[2019-08-26] MEDS: PIPERACILLIN/TAZOBACTAM 3.375 GM in IV NORMAL SALINE 50ML 50 ML IV SCH ×5 (00:21→23:36)
[2019-08-26] MEDS: diphenhydrAMINE HCL 25 MG CAPSULE PO PRN ×3 (00:28→17:58)
[2019-08-26 03:33] VITALS: BP 120/74
[2019-08-26] MEDS: VANCOMYCIN 1.25 GM in IV NORMAL SALINE 250ML 250 ML IV SCH ×3 (04:53→20:57)
[2019-08-26] MEDS: oxyCODONE/APAP 10/325 1 TAB TABLET PO PRN ×3 (06:06→15:58)
[2019-08-26] MEDS: HEPARIN for SUB-Q USE 5,000 UNIT/ML VIAL. SQ SCH (06:16)
[2019-08-26 07:00] VITALS: BP 133/86
[2019-08-26] MEDS: LACTOBACILLUS RHAMNOSUS GG 1 CAPSULE. PO SCH ×2 (08:20→20:55)
[2019-08-26] MEDS: amLODIPine BESYLATE 5 MG TABLET PO SCH (08:21)
[2019-08-26] MEDS: INSULIN LISPRO 300 UNITS/3 ML VIAL. SQ SCH ×3 (08:24→17:01)
[2019-08-26] MEDS ORDERED: DEXTROSE 50% 25 GM / 50ML DISP.SYRIN. IV PRN (08:30)
[2019-08-26] MEDS ORDERED: IV DEXTROSE 5% 250 ML BAG. IV PRN (08:30)
[2019-08-26] MEDS: metFORMIN 500 MG TABLET PO SCH ×2 (08:45→15:58)
[2019-08-26] MEDS: glyBURIDE 5 MG TABLET PO SCH ×2 (08:45→15:58)
[2019-08-26] MEDS: VANCOMYCIN PER PHARMACY MC PRN ×2 (09:45→09:46)
--- NOTE | 2019-08-26 10:40 | PDOC ---
Infectious Disease Note Subjective Subjective sleepy, pain per RN on iv pain meds ROS ROS no n/v/d/sob Vital Sign Vital Signs Vital Signs Date Time Temp Pulse Resp B/P (MAP) Pulse Ox O2 Delivery O2 Flow Rate FiO2 08/26/19 09:09 96 Room Air 08/26/19 08:25 57 133/86 08/26/19 07:00 98.3 14 98.3 Physical Exam PHYSICAL EXAM GENERAL: Lying down, alert, appears comfortable HEENT: Pupils equally round. Oropharynx clear. NECK: Supple. LUNGS: Clear to auscultation. HEART: S1, S2. ABDOMEN: Soft, nontender with bowel sounds present. EXTREMITIES: No gross edema or cyanosis. SKIN: left Lilibeth-rectal, scrotal and right groin post-op dressings in place NEUROLOGIC: Answers questions appropriately. Labs Lab Laboratory Tests Test 08/25/19 11:25 08/25/19 16:53 08/25/19 21:13 08/26/19 07:48 Glucose (Fingerstick) 207 mg/dL (70-99) 269 mg/dL (70-99) 252 mg/dL (70-99) 221 mg/dL (70-99) Micro ANAEROBIC-AEROBIC CULTURE PENDING ANAEROBIC RES 1 PENDING AEROBIC CULT Preliminary Preliminary report AEROBIC RES 1 Preliminary Staphylococcus aureus 4+ AEROBIC RES 2 Preliminary Gram negative rods 4+ GRAM STAIN Final Final report GRAM STAIN RES 1 Final Comment Rare white blood cells. GRAM STAIN RES 2 Final Comment Many gram positive cocci in pairs, chains, and clusters Performed at: - [facility], [place], [place] [id number] Medical Radiation Therapist: COLE Willson MD, Phone Objective Assessment Multiple abscesses involving left buttocks, perineal/groin areas s/p I and D, 08/22 Diabetes Hypertension Tobaccoism Leukocytosis multifactorial, reactive to steroids, surgery and infection Plan Plan of Care vanc and Zosyn Probiotics Monitor renal function closely Trough 9.1 f/u cultures Glycemic control Smoking cessation Local wound care as directed D/w nursing NATHALY REMY MD Aug 26, 2019 10:40
[2019-08-26 11:00] VITALS: BP 119/90
--- NOTE | 2019-08-26 11:11 | PDOC ---
PROGRESS NOTES Chief Complaint Chief Complaint Assessment Multiple abscesses involving left buttocks, perineal/groin areas s/p I and D, 08/22 Diabetes [id number] 13 Hypertension Tobaccoism Leukocytosis multifactorial, reactive to steroids, surgery and infection History of Present Illness History of Present Illness no complaints I inspected the wounds, looks good , some foul smelling private areas, some induration but way better Still some intra op cx pending On iV abx per ID Needing/wanting IV and pain meds PO BS HIGH!Hgb a1c 13 NOt etoh drinker, creat ok WB 5 no fevers PLAN: Start lantus 15 units qhs, tonight Start metformin and glyburide BID DM educn/insulin educan c/o RN FF up intra op cx IV abx per ID Will dc home once on PO abx - not there yet as some cx still cooking Vitals Vitals Vital Signs Date Time Temp Pulse Resp B/P (MAP) Pulse Ox O2 Delivery O2 Flow Rate FiO2 08/26/19 09:09 96 Room Air 08/26/19 08:25 57 133/86 08/26/19 07:00 98.3 14 98.3 Physical Exam Physical Exam GENERAL: Lying down, alert, appears comfortable HEENT: Pupils equally round. Oropharynx clear. NECK: Supple. LUNGS: Clear to auscultation. HEART: S1, S2. ABDOMEN: Soft, nontender with bowel sounds present. EXTREMITIES: No gross edema or cyanosis. SKIN: left Lilibeth-rectal, scrotal and right groin post-op dressings in place NEUROLOGIC: Answers questions appropriately. General: Alert, Oriented X3, Cooperative, mild distress Heart: Regular rate, Normal S1, Normal S2 Lungs: Clear Abdomen: Soft, No tenderness, No hepatosplenomegaly Extremities: No clubbing, No cyanosis, No edema Skin: Other (wounds packed, some indurated tissue around wound, noted to right groin area small pustules ) Labs LABS Laboratory Tests Test 08/25/19 11:25 08/25/19 16:53 08/25/19 21:13 08/26/19 07:48 Glucose (Fingerstick) 207 mg/dL (70-99) 269 mg/dL (70-99) 252 mg/dL (70-99) 221 mg/dL (70-99) Review of Systems Review of Systems some post area pain, induration, the rest 14 pt neg Assessment and Plan Assessmemt and Plan Problems Medical Problems: (1) Abscess of groin, left Status: Acute (2) Abscess of groin, right Status: Acute (3) Cellulitis Status: Acute (4) DM2 (diabetes mellitus, type 2) Status: Chronic (5) Sepsis Status: Acute Comment Review of Relevant I have reviewed the following items liliana (where applicable) has been applied. Labs Laboratory Tests Test 08/24/19 11:14 08/24/19 11:55 08/24/19 17:12 08/24/19 18:00 Glucose (Fingerstick) 206 mg/dL (70-99) 270 mg/dL (70-99) Vancomycin Level Trough 16.6 mcg/mL (10.0-20.0) Vancomycin Last Dose Date 08/24/19 Vancomycin Last Dose Time 0530 Urine Collection Type Unknown Urine Color Yellow Urine Clarity Clear Urine pH 6.5 Urine Specific [place] 1.020 Urine Protein Negative mg/dL (NEG-TRACE) Urine Glucose (UA) >=1000 mg/dL (NEG) Urine Ketones (Stick) Negative mg/dL (NEG) Urine Blood Negative (NEG) Urine Nitrite Negative (NEG) Urine Bilirubin Negative (NEG) Urine Urobilinogen Dipstick 1.0 mg/dL (0.2 mg/dL) Urine Leukocyte Esterase Negative (NEG) Urine RBC 0 /HPF (0-2) Urine WBC 0 /HPF (0-4) Urine Squamous Epithelial Cells Occ /LPF Urine Bacteria 0 /HPF (0-FEW) Urine Opiates Screen Pos (NEG) Urine Methadone Screen Neg (NEG) Urine Barbiturates Neg (NEG) Urine Phencyclidine Screen Neg (NEG) Urine Amphetamine/Methamphetamine Neg (NEG) Urine Benzodiazepines Screen Neg (NEG) Urine Cocaine Screen Neg (NEG) Urine Cannabinoids Screen Neg (NEG) Urine Ethyl Alcohol Neg (NEG) Test 08/24/19 21:00 08/25/19 04:30 08/25/19 07:31 08/25/19 11:25 Glucose (Fingerstick) 260 mg/dL (70-99) 181 mg/dL (70-99) 207 mg/dL (70-99) White Blood Count 5.7 x10^3/uL (4.0-11.0) Red Blood Count 4.57 x10^6/uL (4.30-5.70) Hemoglobin 12.9 g/dL (13.0-17.5) Hematocrit 39.4 % (39.0-53.0) Mean Corpuscular Volume 86 fL (79-100) Mean Corpuscular Hemoglobin 28 pg (25-35) Mean Corpuscular Hemoglobin Concent 33 g/dL (31-37) Red Cell Distribution Width 13.4 % (11.5-14.5) Platelet Count 321 x10^3/uL (140-400) Neutrophils (%) (Auto) 42 % (31-73) Lymphocytes (%) (Auto) 36 % (24-48) Monocytes (%) (Auto) 14 % (0-9) Eosinophils (%) (Auto) 8 % (0-3) Basophils (%) (Auto) 1 % (0-3) Neutrophils # (Auto) 2.4 x10^3/uL (1.8-7.7) Lymphocytes # (Auto) 2.1 x10^3/uL (1.0-4.8) Monocytes # (Auto) 0.8 x10^3/uL (0.0-1.1) Eosinophils # (Auto) 0.4 x10^3/uL (0.0-0.7) Basophils # (Auto) 0.1 x10^3/uL (0.0-0.2) Sodium Level 136 mmol/L (136-145) Potassium Level 4.5 mmol/L (3.5-5.1) Chloride Level 102 mmol/L (98-107) Carbon Dioxide Level 26 mmol/L (21-32) Anion Gap 8 (6-14) Blood Urea Nitrogen 8 mg/dL (8-26) Creatinine 1.0 mg/dL (0.7-1.3) Estimated GFR (Cockcroft-Gault) 95.7 BUN/Creatinine Ratio 8 (6-20) Glucose Level 212 mg/dL (70-99) Calcium Level 8.9 mg/dL (8.5-10.1) Total Bilirubin 0.3 mg/dL (0.2-1.0) Aspartate Amino Transf (AST/SGOT) 16 U/L (15-37) Alanine Aminotransferase (ALT/SGPT) 11 U/L (16-63) Alkaline Phosphatase 88 U/L (46-116) Total Protein 6.6 g/dL (6.4-8.2) Albumin 2.4 g/dL (3.4-5.0) Albumin/Globulin Ratio 0.6 (1.0-1.7) Test 08/25/19 16:53 08/25/19 21:13 08/26/19 07:48 Glucose (Fingerstick) 269 mg/dL (70-99) 252 mg/dL (70-99) 221 mg/dL (70-99) Laboratory Tests Test 08/25/19 11:25 08/25/19 16:53 08/25/19 21:13 08/26/19 07:48 Glucose (Fingerstick) 207 mg/dL (70-99) 269 mg/dL (70-99) 252 mg/dL (70-99) 221 mg/dL (70-99) Microbiology 08/22/19 Anaerobic/Aerobic Culture, Resulted Pending 08/22/19 Anaerobic Culture Result 1 (HUGO), Resulted Pending 08/22/19 Aerobic Culture - Preliminary, Resulted 08/22/19 Aerobic Culture Result 1 (HUGO) - Preliminary, Resulted 08/22/19 Aerobic Culture Result 2 (HUGO) - Preliminary, Resulted 08/22/19 Gram Stain - Final, Resulted 08/22/19 Gram Stain Result 1 (HUGO) - Final, Resulted 08/22/19 Gram Stain Result 2 (HUGO) - Final, Resulted 08/21/19 Blood Culture - Preliminary, Resulted NO GROWTH AFTER 4 DAYS Medications Current Medications Piperacillin Sod/ Tazobactam Sod 4.5 gm/Sodium Chloride 100 ml @ 200 mls/hr 1X ONCE IV Last administered on 08/21/19at 14:50; Start 08/21/19 at 14:30; Stop 08/21/19 at 14:59; Status DC Vancomycin HCl (Vanco Per Pharmacy) 1 each 1X ONCE MC Last administered on 08/21/19at 16:19; Start 08/21/19 at 14:15; Stop 08/21/19 at 15:30; Status DC Sodium Chloride 1,000 ml @ 2,000 mls/hr Q30M IV ; Start 08/21/19 at 14:10; Stop 08/21/19 at 15:18; Status DC Morphine Sulfate (Morphine Sulfate) 4 mg PRN Q15MIN PRN IV/SQ PAIN GREATER THAN 3/10; Start 08/21/19 at 14:15; Stop 08/22/19 at 14:14; Status DC Vancomycin HCl 2 gm/Sodium Chloride 500 ml @ 250 mls/hr 1X ONCE IV Last administered on 08/21/19at 15:29; Start 08/21/19 at 14:45; Stop 08/21/19 at 16:44; Status DC Iohexol (Omnipaque 300 Mg/ml) 75 ml 1X ONCE IV Last administered on 08/21/19at 15:52; Start 08/21/19 at 15:30; Stop 08/21/19 at 15:31; Status DC Info (CONTRAST GIVEN -- Rx MONITORING) 1 each PRN DAILY PRN MC SEE COMMENTS; Start 08/21/19 at 15:30; Stop 08/23/19 at 15:29; Status DC Vancomycin HCl 1.25 gm/Sodium Chloride 250 ml @ 167 mls/hr Q12H IV Last administered on 08/22/19at 17:42; Start 08/22/19 at 03:30; Stop 08/23/19 at 04:29; Status DC Vancomycin HCl (Vancomycin Trough Level) 1 each 1X ONCE MC Last administered on 08/23/19at 05:10; Start 08/23/19 at 03:00; Stop 08/23/19 at 03:01; Status DC Ondansetron HCl (Zofran) 4 mg PRN Q8HRS PRN IV NAUSEA/VOMITING; Start 08/21/19 at 16:15; Stop 08/22/19 at 16:14; Status DC Morphine Sulfate (Morphine Sulfate) 4 mg PRN Q2HR PRN IV PAIN Last administered on 08/22/19at 11:40; Start 08/21/19 at 16:15; Stop 08/22/19 at 16:14; Status DC Acetaminophen (Tylenol) 650 mg PRN Q4HRS PRN PO FEVER; Start 08/21/19 at 16:15; Stop 08/22/19 at 16:14; Status DC Insulin Human Lispro (HumaLOG) 0-9 UNITS TIDWMEALS SQ Last administered on 08/23/19at 17:23; Start 08/21/19 at 17:00; Stop 08/23/19 at 19:12; Status DC Dextrose (Dextrose 50%-Water Syringe) 12.5 gm PRN Q15MIN PRN IV SEE COMMENTS; Start 08/21/19 at 16:30; Stop 08/26/19 at 09:37; Status DC Dextrose 250 ml PRN Q15MIN PRN IV SEE COMMENTS; Start 08/21/19 at 16:30; Stop 08/26/19 at 09:37; Status DC Oxycodone/ Acetaminophen (Percocet 5/325) 1 tab PRN Q4HRS PRN PO MILD PAIN 1-3 Last administered on 08/23/19at 07:59; Start 08/21/19 at 17:45 Amlodipine Besylate (Norvasc) 2.5 mg DAILY PO Last administered on 08/21/19at 17:43; Start 08/21/19 at 17:45; Stop 08/21/19 at 18:10; Status DC Insulin Human Lispro (HumaLOG) 8 units 1X ONCE SQ Last administered on 08/21/19 at 21:01; Start 08/21/19 at 21:00; Stop 08/21/19 at 21:01; Status DC Insulin Glargine (Lantus Syringe) 10 unit 1X ONCE SQ Last administered on 08/21/19at 21:02; Start 08/21/19 at 21:00; Stop 08/21/19 at 21:01; Status DC Ondansetron HCl (Zofran) 4 mg PRN Q6HRS PRN IV NAUSEA/VOMITING; Start 08/22/19 at 10:00; Stop 08/22/19 at 20:00; Status DC Fentanyl Citrate (Fentanyl 2ml Vial) 25 mcg PRN Q5MIN PRN IV MILD PAIN 1-3; Start 08/22/19 at 10:00; Stop 08/22/19 at 20:00; Status DC Fentanyl Citrate (Fentanyl 2ml Vial) 50 mcg PRN Q5MIN PRN IV MODERATE TO SEVERE PAIN Last administered on 08/22/19at 16:32; Start 08/22/19 at 10:00; Stop 08/22/19 at 20:00; Status DC Morphine Sulfate (Morphine Sulfate) 1 mg PRN Q10MIN PRN IV SEVERE PAIN 7-10; Start 08/22/19 at 10:00; Stop 08/22/19 at 20:00; Status DC Ringer's Solution 1,000 ml @ 30 mls/hr Q24H IV ; Start 08/22/19 at 10:00; Stop 08/22/19 at 21:59; Status DC Hydromorphone HCl (Dilaudid) 0.5 mg PRN Q10MIN PRN IV SEV PAIN, Second choice Last administered on 08/22/19at 17:21; Start 08/22/19 at 10:00; Stop 08/22/19 at 20:00; Status DC Prochlorperazine Edisylate (Compazine) 5 mg PACU PRN PRN IV NAUSEA, MRX1; Start 08/22/19 at 10:00; Stop 08/22/19 at 20:00; Status DC Heparin Sodium (Porcine) (Heparin Sodium) 5,000 unit Q8HRS SQ Last administered on 08/26/19at 06:16; Start 08/22/19 at 11:00; Stop 08/26/19 at 08:26; Status DC Piperacillin Sod/ Tazobactam Sod 3.375 gm/Sodium Chloride 50 ml @ 100 mls/hr Q6HRS IV Last administered on 08/26/19at 06:16; Start 08/22/19 at 11:00 Vancomycin HCl (Vanco Per Pharmacy) 1 each PRN DAILY PRN MC SEE COMMENTS Last administered on 08/26/19at 09:46; Start 08/22/19 at 11:30 Lactobacillus Rhamnosus (Culturelle) 1 cap BID PO Last administered on 08/26/19at 08:25; Start 08/22/19 at 21:00 Ondansetron HCl (Zofran) 4 mg STK-MED ONCE .ROUTE ; Start 08/22/19 at 14:11; Stop 08/22/19 at 14:11; Status DC Propofol 20 ml @ As Directed STK-MED ONCE IV ; Start 08/22/19 at 14:11; Stop 08/22/19 at 14:11; Status DC Lidocaine HCl (Lidocaine Pf 2% Vial) 5 ml STK-MED ONCE .ROUTE ; Start 08/22/19 at 14:11; Stop 08/22/19 at 14:11; Status DC Dexamethasone Sodium Phosphate (Decadron) 4 mg STK-MED ONCE .ROUTE ; Start 08/22/19 at 14:11; Stop 08/22/19 at 14:11; Status DC Fentanyl Citrate (Fentanyl 2ml Vial) 100 mcg STK-MED ONCE .ROUTE ; Start 08/22/19 at 14:11; Stop 08/22/19 at 14:11; Status DC Insulin Human Lispro (HumaLOG VIAL for OP,RR ONLY) 0-10 units PRN Q1HR PRN SQ PER PROTOCOL Last administered on 08/22/19at 16:00; Start 08/22/19 at 15:15; Stop 08/23/19 at 15:14; Status DC Sevoflurane (Ultane) 30 ml STK-MED ONCE IH ; Start 08/22/19 at 15:38; Stop 08/22/19 at 15:38; Status DC Fentanyl Citrate (Fentanyl 2ml Vial) 100 mcg STK-MED ONCE .ROUTE ; Start 08/22/19 at 16:08; Stop 08/22/19 at 16:08; Status DC Hydromorphone HCl (Dilaudid) 2 mg STK-MED ONCE .ROUTE ; Start 08/22/19 at 16:29; Stop 08/22/19 at 16:29; Status DC Diphenhydramine HCl (Benadryl) 50 mg STK-MED ONCE .ROUTE ; Start 08/22/19 at 16:38; Stop 08/22/19 at 16:38; Status DC Diphenhydramine HCl (Benadryl) 25 mg 1X ONCE IVP Last administered on 08/22/19at 16:45; Start 08/22/19 at 16:45; Stop 08/22/19 at 16:46; Status DC Vancomycin HCl 1.25 gm/Sodium Chloride 250 ml @ 167 mls/hr Q8H IV Last administered on 08/26/19at 04:53; Start 08/23/19 at 04:30 Vancomycin HCl (Vancomycin Trough Level) 1 each 1X ONCE MC Last administered on 08/24/19at 05:21; Start 08/24/19 at 04:00; Stop 08/24/19 at 04:01; Status DC Oxycodone/ Acetaminophen (Percocet 10/325) 1 tab PRN Q4HRS PRN PO MODERATE TO SEVERE PAIN Last administered on 08/26/19at 06:16; Start 08/23/19 at 09:15 Fentanyl Citrate (Fentanyl 2ml Vial) 50 mcg 1X ONCE IM Last administered on 08/23/19at 11:41; Start 08/23/19 at 11:30; Stop 08/23/19 at 11:31; Status DC Hydromorphone HCl (Dilaudid) 1 mg PRN Q6HRS ONCE IV Last administered on 08/23/19at 13:03; Start 08/23/19 at 12:30; Stop 08/23/19 at 12:31; Status DC Diphenhydramine HCl (Benadryl) 25 mg PRN Q6HRS PRN PO ITCHING Last administered on 08/26/19at 00:28; Start 08/23/19 at 15:15 Hydromorphone HCl (Dilaudid) 1 mg PRN Q6HRS PRN IVP SEVERE PAIN Last administered on 08/24/19at 01:26; Start 08/23/19 at 15:15; Stop 08/24/19 at 11:43; Status DC Nicotine (Nicoderm Cq 14mg) 1 patch PRN DAILY PRN TD SMOKING CESSATION; Start 08/23/19 at 15:15 Insulin Human Lispro (HumaLOG) 0-9 UNITS TIDWMEALHC SQ Last administered on 08/26/19at 08:25; Start 08/23/19 at 21:00; Stop 08/26/19 at 09:25; Status DC Vancomycin HCl (Vancomycin Trough Level) 1 each 1X ONCE MC Last administered on 08/24/19at 12:48; Start 08/24/19 at 12:00; Stop 08/24/19 at 12:01; Status DC Hydromorphone HCl (Dilaudid) 1.5 mg PRN Q4HRS PRN IVP SEVERE PAIN Last administered on 08/26/19at 08:48; Start 08/24/19 at 11:45 Amlodipine Besylate (Norvasc) 5 mg DAILY PO Last administered on 08/26/19 08:25; Start 08/24/19 at 15:15 Insulin Glargine (Lantus Syringe) 15 unit QHS SQ ; Start 08/26/19 at 21:00 Metformin HCl (Glucophage) 500 mg BIDWMEALS PO Last administered on 08/26/19at 08:48; Start 08/26/19 at 09:00 Glyburide (Diabeta) 5 mg BIDWMEALS PO Last administered on 08/26/19at 08:48; Start 08/26/19 at 08:00 Insulin Human Lispro (HumaLOG) 0-9 UNITS TIDWMEALS SQ ; Start 08/26/19 at 12:00 Dextrose (Dextrose 50%-Water Syringe) 12.5 gm PRN Q15MIN PRN IV SEE COMMENTS; Start 08/26/19 at 08:30 Dextrose 250 ml PRN Q15MIN PRN IV SEE COMMENTS; Start 08/26/19 at 08:30 Active Scripts Active Reported No Known Medications Prior To Admisstion (Info) Each 1 Each 1X Vitals/I & O Vital Sign - Last 24 Hours 08/25/19 08/25/19 08/25/19 08/25/19 15:00 15:10 15:51 19:20 Temp 98.1 98.3 98.1 98.3 Pulse 106 78 Resp 16 20 B/P (MAP) 132/96 (108) 117/69 (85) Pulse Ox 95 98 98 98 O2 Delivery Room Air Room Air Room Air Room Air 08/25/19 08/25/19 08/25/19 08/25/19 19:26 19:50 22:12 22:37 Pulse Ox 98 O2 Delivery Room Air Room Air Room Air Room Air 08/25/19 08/25/19 08/26/19 08/26/19 23:04 23:25 00:21 01:43 Temp 98.4 98.4 Pulse 68 Resp 18 B/P (MAP) 128/79 (95) Pulse Ox 97 O2 Delivery Room Air Room Air Room Air Room Air 08/26/19 08/26/19 08/26/19 08/26/19 03:33 04:52 06:16 06:33 Temp 98.8 98.8 Pulse 61 Resp 18 B/P (MAP) 120/74 (89) Pulse Ox 96 O2 Delivery Room Air Room Air Room Air Room Air 08/26/19 08/26/19 08/26/19 08/26/19 07:00 07:13 07:16 08:25 Temp 98.3 98.3 Pulse 57 57 Resp 14 B/P (MAP) 133/86 (102) 133/86 Pulse Ox 98 96 O2 Delivery Room Air Room Air Room Air 08/26/19 08/26/19 08:48 09:09 Pulse Ox 96 96 O2 Delivery Room Air Room Air Intake and Output 08/25/19 08/25/19 08/26/19 15:00 23:00 07:00 Intake Total 300 ml 120 ml 720 ml Balance 300 ml 120 ml 720 ml TRISHA HOLLEY MD Aug 26, 2019 11:10
[2019-08-26 15:00] VITALS: BP 131/82
[2019-08-26] MEDS: KETOROLAC 30 MG/ML VIAL. IV PRN (15:59)
[2019-08-26 19:00] VITALS: BP 108/79
[2019-08-26] MEDS ORDERED: CALCIUM CARBONATE 500 MG TAB.CHEW PO PRN (21:00)
[2019-08-26] MEDS ORDERED: INSULIN GLARGINE SYRINGE. SQ SCH (21:00)
[2019-08-27] MEDS: VANCOMYCIN 1.25 GM in IV NORMAL SALINE 250ML 250 ML IV SCH ×2 (04:34→12:30)
[2019-08-27] MEDS: KETOROLAC 30 MG/ML VIAL. IV PRN ×2 (05:36→14:20)
[2019-08-27] MEDS: PIPERACILLIN/TAZOBACTAM 3.375 GM in IV NORMAL SALINE 50ML 50 ML IV SCH ×2 (05:37→11:22)
[2019-08-27 07:00] VITALS: BP 129/80
[2019-08-27] MEDS: INSULIN LISPRO 300 UNITS/3 ML VIAL. SQ SCH ×2 (08:00→12:33)
[2019-08-27] MEDS: LACTOBACILLUS RHAMNOSUS GG 1 CAPSULE. PO SCH (08:23)
[2019-08-27] MEDS: metFORMIN 500 MG TABLET PO SCH (08:23)
[2019-08-27] MEDS: glyBURIDE 5 MG TABLET PO SCH (08:24)
[2019-08-27] MEDS: amLODIPine BESYLATE 5 MG TABLET PO SCH (08:29)
[2019-08-27] MEDS ORDERED: METF500T PO (12:00)
[2019-08-27] MEDS ORDERED: AMLO5TAB10 PO (12:00)
[2019-08-27] MEDS ORDERED: OXYC1TAB15 PO (12:00)
[2019-08-27] MEDS ORDERED: Nicotine 14MG TD (12:00)
[2019-08-27] MEDS ORDERED: INSU100V8 SQ (12:00)
[2019-08-27] MEDS ORDERED: GLYB5TAB3 PO (12:00)
--- NOTE | 2019-08-27 12:03 | PDOC3 ---
Discharge Summary Visit Information Date of Admission: Aug 21, 2019 Date of Discharge: Aug 27, 2019 Admitting Diagnosis Comment: Multiple abscesses involving left buttocks, perineal/groin areas s/p I and D, 08/22 Diabetes [id number] 13 Hypertension Tobaccoism Leukocytosis multifactorial, reactive to steroids, surgery and infection Final Diagnosis Problems Medical Problems: (1) Abscess of groin, left Status: Acute (2) Abscess of groin, right Status: Acute (3) Cellulitis Status: Acute (4) DM2 (diabetes mellitus, type 2) Status: Chronic (5) Sepsis Status: Acute Brief Hospital Course Allergies Allergies Coded Allergies Type Severity Reaction Last Updated Verified No Known Drug Allergies 08/21/19 No Vital Signs Vital Signs Date Time Temp Pulse Resp B/P (MAP) Pulse Ox O2 Delivery O2 Flow Rate FiO2 08/27/19 10:55 Room Air 08/27/19 08:29 74 129/80 08/27/19 07:00 98.0 18 99 98.0 08/26/19 19:00 2.0 Lab Results Laboratory Tests Test 08/25/19 16:53 08/25/19 21:13 08/26/19 07:48 08/26/19 11:18 Glucose (Fingerstick) 269 mg/dL (70-99) 252 mg/dL (70-99) 221 mg/dL (70-99) 116 mg/dL (70-99) Test 08/26/19 16:52 08/26/19 19:50 08/27/19 07:29 Glucose (Fingerstick) 166 mg/dL (70-99) 146 mg/dL (70-99) 136 mg/dL (70-99) Laboratory Tests Test 08/26/19 16:52 08/26/19 19:50 08/27/19 07:29 Glucose (Fingerstick) 166 mg/dL (70-99) 146 mg/dL (70-99) 136 mg/dL (70-99) Brief Hospital Course Mr. Ruiz is a 49 old [place] male who presented with many abscesses please refer to above for the locations. Underwent I and D on 921. Blood sugars were out of control, I started Levemir 15 daily at bedtime metformin and glyburide twice a day and blood sugars are much better. A1c is 13. Home today by mouth Augmentin as cleared by infectious disease Patient seen and examined, discussed with ID and general surgery Consults performed GS, ID Procedures performed IND of multiple abscess 08/22 Discharge Information Condition at Discharge: Improved, Stable Disposition/Orders: D/C to Home Scheduled Amlodipine Besylate (Amlodipine Besylate) 5 Mg Tablet, 5 MG PO DAILY for htn, #60 Prescribed by: TRISHA HOLLEY on 08/27/19 1200 Glyburide (Glyburide) 5 Mg Tablet, 5 MG PO BIDWMEALS for dm 2, #60 Prescribed by: TRISHA HOLLEY on 08/27/19 1200 Info (No Known Medications Prior To Admisstion) Each, 1 EACH 1X for none, (Reported) Entered as Reported by: CHRISTIAN RICK on 08/21/191801 Last Action: New Order on 08/21/191801 by CHRISTIAN RICK Insulin Glargine,Hum.rec.anlog (Lantus) 100 Unit/1 Ml Vial, 15 UNIT SQ QHS for dm 2 for 30 Days Prescribed by: TRISHA HOLLEY on 08/27/19 1200 Metformin Hcl (Glucophage) 500 Mg Tablet, 500 MG PO BIDWMEALS for dm 2, #60 Prescribed by: TRISHA HOLLEY on 08/27/19 1200 Scheduled PRN Oxycodone/Apap 5-325 (Percocet 5-325 Mg Tablet ) 1 Each Tablet, 1 TAB PO PRN Q4HRS PRN for MILD PAIN 1-3, #30 Prescribed by: TRISHA HOLLEY on 08/27/19 1200 [Nicotine 14MG] 1 PATCH PATCH, 1 PATCH TD PRN DAILY PRN for SMOKING CESSATION, #10 Prescribed by: TRISHA HOLLEY on 08/27/19 TRISHA MADDEN MD Aug 27, 2019 12:03
--- NOTE | 2019-08-27 12:39 | SNU/HH DC ---
DISCHARGE WITH HOME HEALTH DISCHARGE INFORMATION: Discharge Date: Aug 27, 2019 Final Diagnosis: Problems Medical Problems: (1) Abscess of groin, left Status: Acute (2) Abscess of groin, right Status: Acute (3) Cellulitis Status: Acute (4) DM2 (diabetes mellitus, type 2) Status: Chronic (5) Sepsis Status: Acute Condition on Discharge: Stable CODE STATUS: Code Status: Full HOME HEALTH: Face to Face: I certify this patient is under my care and that I, or a nurse practitioner or physician's kindergarten assistant working with me, had a face to face encounter that meets the physician face to face encounter requirements with this patient on []. Medical Complications: Other (multiple abscesses) RN For Eval/Treatment: Yes Physical Therapy For: Evalulation/Treatment Occupational Therapy For: Evaluation/Treatment Speech Language Pathology For: Evaluation/Treatment Home Health Aide For: Self-care FORM TAMPER OPERATOR For: Community Resources Pt Meets Homebound Status: Poor coordination w/ amb. POST DISCHARGE ORDERS: Activity Instructions for Disc: Activity as tolerated Weight Bearing Status after Di: As tolerated DIET AFTER DISCHARGE: DM diet Wound/Incision Care: Change dressing CHECKS AFTER DISCHARGE: Checks after discharge: Check blood press - daily, Check blood sugar, ac/hs FOLLOW-UP: PCP to follow Home Health: wound care, ,multiple abscesses!! CERTIFICATION STATEMENT: Certification Statement: Certification Statement: Based on the above finding, I certify that this patient is confined to the home and needs intermittent fci care, physical therapy and/or speech therapy, or continues to need occupational therapy.~ This patient is under my care, and I have initiated the establishment of the plan of care.~ This patient will be followed by myself or a community physician who will periodically review the plan of care. Home Meds Active Scripts [Nicotine 14MG] 1 PATCH PATCH No Conflict Check, 1 PATCH TD PRN DAILY PRN for SMOKING CESSATION, #10 Prov:TRISHA HOLLEY MD 08/27/19 Amlodipine Besylate (AMLODIPINE BESYLATE) 5 Mg Tablet, 5 MG PO DAILY for htn, #60 TAB Prov:TRISHA HOLLEY MD 08/27/19 Glyburide (GLYBURIDE) 5 Mg Tablet, 5 MG PO BIDWMEALS for dm 2, #60 TAB Prov:TRISHA HOLLEY MD 08/27/19 Insulin Glargine,Hum.rec.anlog (LANTUS) 100 Unit/1 Ml Vial, 15 UNIT SQ QHS for dm 2 for 30 Days, EACH Prov:TRISHA HOLLEY MD 08/27/19 Metformin Hcl (GLUCOPHAGE) 500 Mg Tablet, 500 MG PO BIDWMEALS for dm 2, #60 TAB Prov:TRISHA HOLLEY MD 08/27/19 Oxycodone/Apap 5-325 (PERCOCET 5-325 MG TABLET ) 1 Each Tablet, 1 TAB PO PRN Q4HRS PRN for MILD PAIN 1-3, #30 TAB Prov:TRISHA HOLLEY MD 08/27/19 Reported Medications Info (NO KNOWN MEDICATIONS PRIOR TO ADMISSTION) Each, 1 EACH 1X for none, EACH 08/21/19 TRISHA HOLLEY MD Aug 27, 2019 12:38
--- NOTE | 2019-08-27 12:41 | PDOC ---
SURGICAL PROGRESS NOTE Subjective resting plans for dc wanting assistance with wound care at home Vital Signs Vital Signs Date Time Temp Pulse Resp B/P (MAP) Pulse Ox O2 Delivery O2 Flow Rate FiO2 08/27/19 10:55 Room Air 08/27/19 08:29 74 129/80 08/27/19 07:00 98.0 18 99 98.0 08/26/19 19:00 2.0 I&O Intake and Output 08/27/19 06:59 Intake Total 630 ml Output Total 1550 ml Balance -920 ml Intake Oral 630 ml Output Urine Total 1550 ml # Voids 4 General: Alert, Oriented X3, Cooperative, No acute distress Skin: Other (wounds packed ) Labs Laboratory Tests Test 08/25/19 16:53 08/25/19 21:13 08/26/19 07:48 08/26/19 11:18 Glucose (Fingerstick) 269 mg/dL (70-99) 252 mg/dL (70-99) 221 mg/dL (70-99) 116 mg/dL (70-99) Test 08/26/19 16:52 08/26/19 19:50 08/27/19 07:29 08/27/19 11:53 Glucose (Fingerstick) 166 mg/dL (70-99) 146 mg/dL (70-99) 136 mg/dL (70-99) 176 mg/dL (70-99) Laboratory Tests Test 08/26/19 16:52 08/26/19 19:50 08/27/19 07:29 08/27/19 11:53 Glucose (Fingerstick) 166 mg/dL (70-99) 146 mg/dL (70-99) 136 mg/dL (70-99) 176 mg/dL (70-99) Problem List Problems Medical Problems: (1) Abscess of groin, left Status: Acute (2) Abscess of groin, right Status: Acute (3) Cellulitis Status: Acute (4) DM2 (diabetes mellitus, type 2) Status: Chronic (5) Sepsis Status: Acute Assessment/Plan ok to dc from surgical pov wound care plan for home--hh vs wound care can FU in clinic with Dr Nugent if dcs home with HH SUNNI LEE APRN Aug 27, 2019 12:41
[2019-08-27] MEDS: oxyCODONE/APAP 10/325 1 TAB TABLET PO PRN (14:20)
[2019-08-27 15:21] VITALS: BP 138/91
== END 2019-08-27 16:11 | disposition home health service (06) | DRG 853 ==
LOC: ER 12:53 → 4 NORTH 14:55
PROVIDERS: ADMIT Internal Medicine; ATTEND Internal Medicine
PROC: 0Y950ZZ Drainage of Right Inguinal Region, Open Approach (ICD-10-PCS; 2019-08-22)
PROC: 0D9P0ZZ Drainage of Rectum, Open Approach (ICD-10-PCS; principal; 2019-08-22 14:30)
DX: A41.9 Sepsis, unspecified organism (principal); E43 Unspecified severe protein-calorie malnutrition; K61.1 Rectal abscess; L02.214 Cutaneous abscess of groin; L03.314 Cellulitis of groin; E11.65 Type 2 diabetes mellitus with hyperglycemia; Z68.28 Body mass index [BMI] 28.0-28.9, adult; Z79.899 Other long term (current) drug therapy; F17.210 Nicotine dependence, cigarettes, uncomplicated; I10 Essential (primary) hypertension; Z79.4 Long term (current) use of insulin; Z90.49 Acquired absence of other specified parts of digestive tract; Z71.6 Tobacco abuse counseling
CPT/HCPCS: 36415; 72193; 76870; 80053; 80202; 80307; 81001; 82565; 82962; 83036; 83605; 84145; 84520; 85025; 85651; 86140; 87040; 87071; 87075; 87186; 96365; A7015; J1100; J1170; J1200; J1644; J1815; J1885; J2001; J2270; J2405; J2543; J2704; J3010; J3370; J7040; J7050; Q0163; Q9967; 99285-25; A4461; G0378; J7030

== ENCOUNTER 2021-05-01 15:07 | Emergency (ER) | payer MEDICARE ==
[~2021-05-01] VITALS: Ht 165.1 cm; Wt 77.2 kg
[~2021-05-01 15:07] MED LIST: AMLO-186 PO; GLYB5TAB3 PO; INSU100V8 SQ; METF500T PO; Nicotine 14MG TD; OXYC1TAB15 PO
[2021-05-01 16:17] VITALS: BP 156/89
[2021-05-01] MEDS ORDERED: ORPHENADRINE CITRATE 60 MG/2 ML VIAL. IM ONE (17:00)
[2021-05-01] MEDS ORDERED: KETOROLAC 30 MG/ML VIAL. IM ONE (17:00)
[2021-05-01] MEDS ORDERED: NAPR-514 PO (17:23)
[2021-05-01] MEDS ORDERED: CYCL10TA2 PO (17:23)
--- NOTE | 2021-05-01 17:23 | ED.ADGEN ---
Past Medical History Past Medical History: No Pertinent History Past Surgical History: Tonsillectomy Smoking Status: Current Every Day Smoker Alcohol Use: Occasionally Drug Use: None Social History Narrative: USED YESTERDAY General Adult EDM: Chief Complaint: HIP PAIN HPI: HPI: Patient is a 50 year old AA male, accompanied by his significant other, who presents emergency department with complaints of left low back pain that radiates to his left hip and down to his left knee for the last month. Patient reports that the pain is worse with movement and ambulation. He states that the pain increased significantly today. He denies any recent injury, fall, or trauma. He denies any numbness, tingling, or weakness of the affected joint. He currently rates pain a 10 out of 10 on pain scale, he denies any alleviating factors. Patient denies any saddle anesthesia, or loss of bowel/bladder control. Patient reports he is a type II diabetic but states he has not been taking his medication for years. Patient states he is unable to afford his medications b ecause he does not have insurance. Patient reports that he does not check his blood sugar because he does not have a glucometer. Patient admits to using cocaine with some friends yesterday. He denies any chest pain or shortness of breath. Review of Systems: Review of Systems: Complete ROS is negative unless otherwise noted in HPI. Current Medications: Current Medications Medications (Trade) Dose Ordered Sig/Mariola Start Time Stop Time Status Last Admin Dose Admin Ketorolac Tromethamine (Toradol 30mg Vial) 30 mg 1X ONCE 05/01/21 17:00 05/01/21 17:01 DC 05/01/21 17:11 30 MG Orphenadrine Citrate (Norflex) 30 mg 1X ONCE 05/01/21 17:00 05/01/21 17:01 DC 05/01/21 17:10 30 MG Allergies: Allergies: Allergies Coded Allergies Type Severity Reaction Last Updated Verified No Known Drug Allergies 08/21/19 No Physical Exam: PE: See Above Constitutional: Well developed, well nourished, no acute distress, non-toxic appearance, patient ambulates with limping the left side. [] HENT: Normocephalic, atraumatic, bilateral external ears normal, nose normal. [] Eyes: PERRLA, EOMI, conjunctiva normal, no discharge. [] Neck: Normal range of motion, no stridor. [] Cardiovascular:Heart rate regular rhythm Lungs & Thorax: Respirations even and unlabored, no retractions, no respiratory distress Back: No bony tenderness, left paraspinal lumbar tenderness to palpation, increased pain with left straight leg lift. Skin: Warm, dry, no erythema, no rash. [] Extremities: No cyanosis, ROM intact, no edema. [] Neurologic: Alert and oriented X 3, normal sensory, no focal deficits noted. [] Psychologic: Affect normal, judgement normal, mood normal. [] Current Patient Data: Labs: Laboratory Tests Test 05/01/21 17:00 Glucose (Fingerstick) 336 mg/dL (70-99) H Vital Signs: Vital Signs Date Time Temp Pulse Resp B/P (MAP) Pulse Ox O2 Delivery O2 Flow Rate FiO2 05/01/21 16:17 98.0 84 20 156/89 (111) 99 Room Air 98.0 EKG: EKG: [] Heart Score: C/O Chest Pain: No Risk Scores: Score 0 - 3: 2.5% MACE over next 6 weeks - Discharge Home Score 4 - 6: 20.3% MACE over next 6 weeks - Admit for Clinical Observation Score 7 - 10: 72.7% MACE over next 6 weeks - Early Invasive Strategies Radiology/Procedures: Radiology/Procedures: [] Course & Med Decision Making: Course & Med Decision Making Pertinent Labs and Imaging studies reviewed. (See chart for details) Patient is a 50-year-old male who presented to the emergency department with complaints of left low back pain that radiated to his left hip and leg. Physical exam is most concerning for sciatica. I offered the patient treatment for sciatica. Patient was very confrontational and demanding throughout his visit. Patient demanded that I also check his blood sugar he denied any nausea, vomiting, diarrhea, confusion, abdominal pain, chest pain, or shortness of breath. Patient reports that he was taking 3 different types of diabetes medications a few years ago when he was admitted to this hospital. Patient states he has not been taking them for over a year because he does not have insurance and cannot afford them. Patient reported that he had been controlling his blood sugar through his diet. His blood glucose in the ER was 336. I ordered a BMP so that I could check the patient's renal function and prescribe him the Metformin that had been previously prescribed for his diabetes. The patient refused the blood draw and stated medications for his leg pain. I provided him with local resources for uninsured patients. I encouraged him to return to the ER if her symptoms worsened or fever develop. Patient verbalized an understanding of home care, medications, follow-up, and return to ED instructions and was in agreement with the plan of care. Woody Disclaimer: Woody Disclaimer: This electronic medical record was generated, in whole or in part, using a voice recognition dictation system. Departure Departure Impression: Primary Impression: Left-sided low back pain with sciatica Additional Impression: Uncontrolled type 2 diabetes mellitus Disposition: HOME / SELF CARE / HOMELESS Condition: STABLE Referrals: NO PCP (PCP) Patient Instructions: Diabetes, FAQs, Sciatica with [facility] Additional Instructions: Fill the prescription(s) and use as directed. Apply heat or ice for to sore areas as needed for comfort. Activity as tolerated. Use the following list of primary care doctors to establish a relationship with a healthcare provider for management of your chronic health conditions. Return to the ER if symptoms worsen or fever develops. [facility] [address] [place] [address] [facility] [address] [place] [address] [facility] [address] [facility] [place] [address] [facility] [place] [facility] [address] [place] [address] [facility] [address] [place] [address] [facility] [address] [place] [address] [facility] [address] [place] [address] [facility] [address] [place] [address] [facility] [address] [place] [address] [facility] [address] [place] [address] [facility] Cyclobenzaprine Hcl (CYCLOBENZAPRINE HCL) 10 Mg Tablet 1 TAB PO TID PRN for PAIN for 10 Days, #30 TAB 0 Refills Prov: JOHN CHESTER SPOOL CARRIER 05/01/21 Naproxen (NAPROXEN) 500 Mg Tablet 1 TAB PO BID PRN for PAIN for 10 Days, #20 TAB 0 Refills Prov: JOHN CHESTER SPOOL CARRIER 05/01/21 Problem Qualifiers Primary Impression: Left-sided low back pain with sciatica Chronicity: acute Sciatica laterality: sciatica of left side Qualified Codes: M54.42 - Lumbago with sciatica, left side Additional Impression: Uncontrolled type 2 diabetes mellitus Glycemic state: with hyperglycemia Qualified Codes: E11.65 - Type 2 diabetes mellitus with hyperglycemia JOHN CHESTER SPOOL CARRIER May 01, 2021 17:23
== END 2021-05-01 18:03 | disposition home or self-care (01) ==
LOC: ER 15:07
DX: M54.42 Lumbago with sciatica, left side (principal); E11.9 Type 2 diabetes mellitus without complications; M25.562 Pain in left knee; F17.200 Nicotine dependence, unspecified, uncomplicated
CPT/HCPCS: 82962; 96372; 99284; J1885; J2360